=== PATIENT | male | born 1940 | race Caucasian/White ===

== ENCOUNTER 2018-09-14 17:55 | Emergency (ER) | payer OTHER ==
[2018-09-14] MEDS ORDERED: FENTANYL CITR 100 MCG/2 ML ONE ×2 (18:56→20:27)
--- NOTE | 2018-09-14 19:43 | RAD REPORT ---
EXAM DESCRIPTION: CT - Thorax Wo Con CLINICAL HISTORY: Chest pain left side rib pain COMPARISON: No relevant recent comparisons. FINDINGS: CT thorax without contrast and CT abdomen without contrast were performed Emphysematous changes are present throughout the lungs. An irregular mass measuring 5.1 x 4.8 cm is p resent in the left lung base medially. The mass abuts the pleura. No additional pulmonary nodule or m ass seen. No pathologically enlarged adenopathy. Nondisplaced fracture is present involving the left posterior ninth and tenth ribs. Noncontrast assessment of the liver and spleen are within normal limits. Large bilateral adrenal mass es are present, on the right measuring 3.9 cm and on the left measuring 3.4 cm. Pancreas is normal fo r a noncontrast study. Punctate superior left renal calculus noted. No hydronephrosis. Stent graft is present in the abdominal aorta. No lytic or blastic bone lesion. All CT scans are performed using dose optimization technique as appropriate and may include automated exposure control or mA/KV adjustment according to patient size. IMPRESSION: Nondisplaced fracture of the left posterior ninth and tenth ribs without pneumothorax. Irregular mass in the left lung base medially measuring 5.1 x 4.8 cm is likely neoplastic in origin. Bilateral adrenal masses as described are likely metastatic in etiology.
--- NOTE | 2018-09-14 21:13 | ER ---
Nurse's Notes [facility] Name: Frantz Luo Age: 78 yrs Sex: Male : 1940 Arrival Date: 09/14/2018 Time: 18:07 Bed 18 Private MD: Diagnosis: Left lung mass;Multiple fractures of ribs, left side Presentation: 09/14 18:07 Presenting complaint: EMS states: called out for trip injury and left sided rib pain em about 30 minutes ago, denies LOC or head injury. Transition of care: patient was not received from another setting of care. Onset of symptoms. Risk Assessment: Do you want to hurt yourself or someone else? Patient reports no desire to harm self or others. Initial Sepsis Screen: Does the patient meet any 2 criteria? No. Patient's initial sepsis screen is negative. Does the patient have a suspected source of infection? No. Patient's initial sepsis screen is negative. Care prior to arrival: None. 18:07 Method Of Arrival: EMS: [facility] em 18:20 Acuity: WIL 3 iw Triage Assessment: 18:16 General: Appears in no apparent distress. uncomfortable, Behavior is calm, cooperative. em Pain: Complains of pain in left lateral anterior chest. Historical: - Allergies: 18:16 flu vaccine; em - PMHx: 18:16 Myocardial infarction; Diabetes - IDDM; kidney failure; cancer, scalp; em - Immunization history:: Adult Immunizations not up to date. - Social history:: Smoking status: Patient uses tobacco products, smokes one pack cigarettes per day. - Ebola Screening: : Patient negative for fever greater than or equal to 101.5 degrees Fahrenheit, and additional compatible Ebola Virus Disease symptoms Patient denies exposure to infectious person Patient denies travel to an Ebola-affected area in the 21 days before illness onset No symptoms or risks identified at this time. Screenin:18 Abuse screen: Denies threats or abuse. Nutritional screening: No deficits noted. em Tuberculosis screening: No symptoms or risk factors identified. Fall Risk None identified. Assessment: 18:16 General: Appears in no apparent distress. uncomfortable, Behavior is calm, cooperative. em Pain: Complains of pain in chest and left lateral anterior chest. Neuro: Level of Consciousness is awake, alert, obeys commands, Oriented to person, place, time, situation. Cardiovascular: Patient's skin is warm and dry. Respiratory: Airway is patent Respiratory effort is even, unlabored, Respiratory pattern is regular, symmetrical. GI: Abdomen is round non-distended. : No signs and/or symptoms were reported regarding the genitourinary system. EENT: No signs and/or symptoms were reported regarding the EENT system. Derm: Skin is intact, is thin, Skin is pink, warm \T\ dry. Musculoskeletal: Range of motion: intact in all extremities. 18:30 Reassessment: Patient appears in no apparent distress at this time. I agree with above iw assessment by Kendall Almanza LVN. 19:00 General: Appears in no apparent distress. uncomfortable, Behavior is calm, cooperative, rr5 appropriate for age. 19:00 Pain: Complains of pain in left ateral anterior chest Pain does not radiate. Quality of rr5 pain is described as aching, Pain began suddenly, Is intermittent. Neuro: Level of Consciousness is awake, alert, obeys commands, Oriented to person, place, time, situation. Cardiovascular: Capillary refill < 3 seconds Patient's skin is warm and dry. Respiratory: Airway is patent Respiratory effort is even, unlabored, Respiratory pattern is regular, symmetrical. GI: Abdomen is round non-distended. : No signs and/or symptoms were reported regarding the genitourinary system. EENT: No signs and/or symptoms were reported regarding the EENT system. EENT: No signs and/or symptoms were reported regarding the EENT system. Derm: Skin is intact, Skin is pink, warm \T\ dry. Musculoskeletal: Capillary refill < 3 seconds, Range of motion: intact in all extremities, Reports pain in left lateral anterior chest. 20:00 Reassessment: Patient appears in no apparent distress at this time. Patient and/or rr5 family updated on plan of care and expected duration. Pain level reassessed. awaiting for CT report. 20:30 Reassessment: Patient appears in no apparent distress at this time. complaints of rib rr5 pain. ED provider informed with order and carried out. 21:39 Reassessment: Patient appears in no apparent distress at this time. Patient and/or rr5 family updated on plan of care and expected duration. Pain level reassessed. discharge instruction given and explained with no complaints made. Patient denies pain at this time. Patient states feeling better. Vital Signs: 18:16 BP 162 / 76; Pulse 78; Resp 18; Temp 97.8; Pulse Ox 98% on R/A; Weight 88.45 kg; Height em 5 ft. 11 in. (180.34 cm); Pain 7/10; 19:00 BP 160 / 51; Pulse 76; Resp 18; Temp 98.4; Pulse Ox 99% ; rr5 20:00 BP 143 / 83; Pulse 80; Resp 19; Pulse Ox 99% ; rr5 20:30 BP 141 / 80; Pulse 75; Resp 18; Pulse Ox 100% ; Pain 7/10; rr5 21:40 BP 136 / 85; Pulse 72; Resp 19; Pulse Ox 99% ; rr5 18:16 Body Mass Index 27.20 (88.45 kg, 180.34 cm) em ED Course: 18:07 Patient arrived in ED. em 18:07 Kendall Almanza LVN is Primary Nurse. em 18:16 Arm band placed on. em 18:18 Philippe Haas PA is PHCP. cp 18:18 Long Lee MD is Attending Physician. cp 18:18 Patient has correct armband on for positive identification. Bed in low position. Call em light in reach. Side rails up X2. Adult w/ patient. Pulse ox on. NIBP on. 18:20 Triage completed. iw 18:49 Inserted saline lock: 20 gauge in right antecubital area, using aseptic technique. em 19:03 Urine collected: clean catch specimen, clear. mh5 19:[address] via stretcher. nj 19:34 CT Chest Wo Con In Process Unspecified. EDMS 19:34 Abdomen Wo Contrast In Process Unspecified. EDMS 21:11 Mitchell Luevano MD is Referral Physician. cp 21:40 No provider procedures requiring assistance completed. IV discontinued, intact, rr5 bleeding controlled, No redness/swelling at site. Pressure dressing applied. Administered Medications: 18:50 Drug: fentaNYL (PF) 25 mcg Route: IVP; Site: right antecubital; iw 21:39 Follow up: Response: No adverse reaction rr5 20:30 Drug: fentaNYL (PF) 25 mcg Route: IVP; Site: right antecubital; rr5 21:39 Follow up: Response: No adverse reaction rr5 Outcome: 21:12 Discharge ordered by . cp 21:40 Discharged to home via wheelchair, with family. rr5 21:40 Condition: stable 21:40 Discharge instructions given to patient, family, Instructed on discharge instructions, follow up and referral plans. medication usage, Demonstrated understanding of instructions, follow-up care, medications, Prescriptions given X 1. 21:41 Patient left the ED. rr5 Signatures: Dispatcher [employer] EDKendall Dodson, LOOM CONTROL CHAIN BUILDER LOOM CONTROL CHAIN BUILDER Alejandra Zimmerman, RN RN Philippe Mayorga, Alli Pineda cp, [facility] Desmond Christianson, RN RN rr5
--- NOTE | 2018-09-14 21:13 | EDPHYS ---
Physician Documentation [facility] Name: Frantz Luo Age: 78 yrs Sex: Male : 1940 Arrival Date: 09/14/2018 Time: 18:07 Bed 18 Private MD: ED Physician Long Lee HPI: 09/14 18:30 This 78 yrs old Male presents to ER via EMS with complaints of RIB PAIN. cp 18:30 The patient or guardian reports chest pain that is located primarily in the left lower cp lateral chest. Onset: just prior to arrival. The pain does not radiate. Patient reports trip and fall while in garage. Landed with arm tucked into side of chest. now complaining of pain left lower lateral rib area. Historical: - Allergies: 18:16 flu vaccine; em - PMHx: 18:16 Myocardial infarction; Diabetes - IDDM; kidney failure; cancer, scalp; em - Immunization history:: Adult Immunizations not up to date. - Social history:: Smoking status: Patient uses tobacco products, smokes one pack cigarettes per day. - Ebola Screening: : Patient negative for fever greater than or equal to 101.5 degrees Fahrenheit, and additional compatible Ebola Virus Disease symptoms Patient denies exposure to infectious person Patient denies travel to an Ebola-affected area in the 21 days before illness onset No symptoms or risks identified at this time. ROS: 18:35 Constitutional: Negative for body aches, chills, fever, poor PO intake. cp 18:35 Eyes: Negative for injury, pain, redness, and discharge. cp 18:35 ENT: Negative for drainage from ear(s), ear pain, sore throat, difficulty swallowing, difficulty handling secretions. 18:35 Neck: Negative for pain with movement, pain at rest, bony tenderness. 18:35 Cardiovascular: Positive for chest pain, of the left lower lateral chest, Negative for palpitations. 18:35 Respiratory: Negative for shortness of breath, wheezing. 18:35 Abdomen/GI: Negative for abdominal pain, nausea, vomiting, and diarrhea, diarrhea, constipation, black/tarry stool, rectal bleeding. 18:35 Back: Negative for decreased range of motion, pain at rest, pain with movement. 18:35 Neuro: Negative for altered mental status, dizziness, loss of consciousness, weakness. 18:35 All other systems are negative. Exam: 18:42 Constitutional: The patient appears in no acute distress, alert, awake, cp non-diaphoretic, non-toxic, well developed, well nourished, uncomfortable. 18:42 Head/Face: Normocephalic, atraumatic. cp 18:42 Eyes: Periorbital structures: appear normal, Pupils: equal, round, and reactive to light and accomodation, Extraocular movements: intact throughout, Conjunctiva: normal, no exudate, no injection, Lids and lashes: appear normal, bilaterally. 18:42 ENT: External ear(s): are unremarkable, Ear canal(s): are normal, clear, TM's: bulging, is not appreciated, bilaterally, dullness, bilaterally, erythema, is not appreciated, bilaterally, Nose: is normal, Mouth: Lips: moist, Oral mucosa: moist, Posterior pharynx: is normal, airway is patent. 18:42 Neck: C-spine: vertebral tenderness, is not appreciated, crepitus, is not appreciated, ROM/movement: is normal, is supple, without pain, no range of motions limitations, no nuchal rigidity. 18:42 Chest/axilla: Inspection: ecchymosis, that is mild, of the left lower lateral chest wall Palpation: crepitus, is not appreciated, tenderness, that is moderate, of the left lower lateral chest wall, that totally reproduces the patient's complaints. 18:42 Cardiovascular: Rate: normal, Rhythm: regular, Pulses: Pulses are 2+ in right radial artery and left radial artery. Edema: is not appreciated, JVD: is not appreciated. 18:42 Respiratory: the patient does not display signs of respiratory distress, Respirations: normal, no use of accessory muscles, no retractions, no splinting, no tachypnea, labored breathing, is not present, Breath sounds: are clear throughout, no decreased breath sounds, no stridor, no wheezing. 18:42 Abdomen/GI: Inspection: obese Bowel sounds: active, all quadrants, Palpation: soft, in all quadrants, moderate abdominal tenderness, in the left lateral upper abdomen, rebound tenderness, is not appreciated, involuntary guarding, is not appreciated. 18:42 Back: vertebral tenderness, is not appreciated. 18:42 Musculoskeletal/extremity: Exam is negative for decreased range of motion, deformity, injury. 18:42 Skin: cellulitis, is not appreciated, no rash present. 18:42 Neuro: Orientation: to person, place \T\ time. Mentation: is normal, Cerebellar function: is grossly normal, Motor: moves all fours, strength is normal, Sensation: is normal. Vital Signs: 18:16 BP 162 / 76; Pulse 78; Resp 18; Temp 97.8; Pulse Ox 98% on R/A; Weight 88.45 kg; Height em 5 ft. 11 in. (180.34 cm); Pain 7/10; 19:00 BP 160 / 51; Pulse 76; Resp 18; Temp 98.4; Pulse Ox 99% ; rr5 20:00 BP 143 / 83; Pulse 80; Resp 19; Pulse Ox 99% ; rr5 20:30 BP 141 / 80; Pulse 75; Resp 18; Pulse Ox 100% ; Pain 7/10; rr5 21:40 BP 136 / 85; Pulse 72; Resp 19; Pulse Ox 99% ; rr5 18:16 Body Mass Index 27.20 (88.45 kg, 180.34 cm) em MDM: 18:18 Patient medically screened. cp 19:00 Differential diagnosis: abnormal EKG, acute myocardial infarction, costochondritis, cp pericarditis, pneumonia, pneumothorax, pulmonary embolus, stable angina, unstable angina, rib fracture, pneumothorax, hemothorax. 21:10 Data reviewed: vital signs, nurses notes, radiologic studies, CT scan. cp 21:10 Counseling: I had a detailed discussion with the patient and/or guardian regarding: the cp historical points, exam findings, and any diagnostic results supporting the discharge/admit diagnosis, radiology results, the need for outpatient follow up, a family practitioner, to return to the emergency department if symptoms worsen or persist or if there are any questions or concerns that arise at home. ED course: VSS. Pain improved with meds and patient appears in no respiratory distress. Will discharge to home for continued monitoring. 09/14 18:28 Order name: CT Chest Wo Con cp 09/14 18:27 Order name: IV; Complete Time: 18:53 cp 09/14 18:58 Order name: Abdomen Wo Contrast EDMS Administered Medications: 18:50 Drug: fentaNYL (PF) 25 mcg Route: IVP; Site: right antecubital; iw 21:39 Follow up: Response: No adverse reaction rr5 20:30 Drug: fentaNYL (PF) 25 mcg Route: IVP; Site: right antecubital; rr5 21:39 Follow up: Response: No adverse reaction rr5 Disposition: 09/14/18 21:12 Discharged to Home. Impression: Left lung mass, Multiple fractures of ribs, left side. - Condition is Stable. - Discharge Instructions: Rib Fracture, Pulmonary Nodule. - Prescriptions for Tylenol- Codeine #3 300-30 mg Oral Tablet - take 2 tablets by ORAL route every 6 hours As needed no driving while taking medication; 20 tablet. - Medication Reconciliation Form, Thank You Letter, Antibiotic Education, Prescription Opioid Use form. - Follow up: Mitchell Luevano MD; When: 09/17/2018; Reason: Recheck today's complaints. Addendum: 09/27/2018 07:39 Co-signature as Attending Physician, Long Lee MD I agree with the assessment and k dr plan of care. Signatures: Dispatcher [employer] [facility] Long Lee MD MD [facility] Kendall Almanza, MOVEMAN MOVEMAN em Alejandra Meyers, KRYSTIAN RN iw Philippe Haas PA PA cp Desmond Christianson, RN RN rr5 Corrections: (The following items were deleted from the chart) 09/14 18:58 18:47 Abdomen Pelvis Wo Con+CT.RAD.BRZ ordered. [facility] 21:41 21:12 09/14/2018 21:12 Discharged to Home. Impression: Left lung mass; Multiple rr5 fractures of ribs, left side. Condition is Stable. Forms are Medication Reconciliation Form, Thank You Letter, Antibiotic Education, Prescription Opioid Use. Follow up: Mitchell Luevano; When: 09/17/2018; Reason: Recheck today's complaints. cp
--- NOTE | 2018-09-17 09:05 | RAD REPORT ---
EXAM DESCRIPTION: CT - Abdomen Wo Contrast CLINICAL HISTORY: Chest pain left side rib pain COMPARISON: No relevant recent comparisons. TECHNIQUE: CT thorax without contrast and CT abdomen without contrast were performed. FINDINGS: Emphysematous changes are present throughout the lungs. An irregular mass measuring 5.1 x 4.8 cm is present in the left lung base medially. The mass abuts the pleura. No additional pulmonary nodule or mass seen. No pathologically enlarged adenopathy. Nondisplaced fracture is present involving the left posterior ninth and tenth ribs. Non-contrast assessment of the liver and spleen are within normal limits. Large bilateral adrenal mas ses are present, on the right measuring 3.9 cm and on the left measuring 3.4 cm. Pancreas is normal f or a non-contrast study. Punctate superior left renal calculus noted. No hydronephrosis. Stent graft is present in the abdominal aorta. Lymphadenopathy is present in the para-aortic location, the largest on the left measuring 27 mm in sh ort axis. No lytic or blastic bone lesion. All CT scans are performed using dose optimization technique as appropriate and may include automated exposure control or mA/KV adjustment according to patient size. IMPRESSION: Nondisplaced fracture of the left posterior ninth and tenth ribs without pneumothorax. Irregular mass in the left lung base medially measuring 5.1 x 4.8 cm is likely neoplastic in origin. Bilateral adrenal masses as described are likely metastatic in etiology. Para-aortic adenopathy is also present, largest on the left measuring 2.7 cm, likely metastatic/neopl astic in origin. The lower abdomen and pelvis is excluded from this study, limiting assessment.
== END 2018-09-14 21:41 | disposition home or self-care (01) ==
LOC: ER 17:55
DX: S22.42XA Multiple fractures of ribs, left side, initial encounter for closed fracture (principal); R91.8 Other nonspecific abnormal finding of lung field; F17.210 Nicotine dependence, cigarettes, uncomplicated; W01.0XXA Fall on same level from slipping, tripping and stumbling without subsequent striking against object, initial encounter; Y93.89 Activity, other specified; Y92.008 Other place in unspecified non-institutional (private) residence as the place of occurrence of the external cause; Z88.7 Allergy status to serum and vaccine
CPT/HCPCS: 71250; 74150; 96374; 99285; J3010

== ENCOUNTER 2018-09-16 17:50 | Inpatient (IN) | payer OTHER ==
[2018-09-16 18:31] LABS: Absolute Lymphocytes (CBC) 1.4 K/uL (0.7-4.9); Absolute Monocytes 1.7 K/uL (0.1-1.3); Absolute Neutrophil 14.8 K/uL (1.8-8.0); Basophils % 0.7 % (0-1.3); Eosinophils % 0.4 % (0-4.4); Hematocrit 35.5 % (39.6-49.0); Lymphocytes % 7.8 % (15.3-44.8); MPV 7.6 fL (7.6-11.3); Monocytes % 9.2 % (3.3-12.3); RBC Red Blood Cell Count 4.41 M/uL (4.33-5.43)
[2018-09-16] MEDS ORDERED: NA CHLORIDE 0.9% 1,000 ML ONE (18:35)
[2018-09-16 18:52] LABS: Albumin 2.8 g/dL (3.4-5.0); Bilirubin Direct 0.2 mg/dL (0-0.2); Bilirubin Total 0.5 mg/dL (0.2-1.0); Potassium 4.4 mmol/L (3.5-5.1); Protein, Total 7.3 g/dL (6.4-8.2)
--- NOTE | 2018-09-16 19:24 | RAD REPORT ---
EXAM DESCRIPTION: RAD - Chest Single View - 09/16/2018 7:12 pm CLINICAL HISTORY: CHEST PAIN Chest pain. COMPARISON: Abdomen 1 View (KUB) dated 09/16/2018; CHEST PA AND LAT 2 VIEW dated 12/23/2010; CHEST PA A ND LAT 2 VIEW dated 02/12/2010; CHEST SINGLE VIEW dated 11/13/2009; Thorax Wo Con dated 09/14/2018 FINDINGS: Portable technique limits examination quality. Emphysematous changes are present throughout the lungs. Dense left retrocardiac lung opacity is again noted, correlating with recent CT chest findings. The heart is normal in size. No displaced fracture s.
--- NOTE | 2018-09-16 19:24 | RAD REPORT ---
EXAM DESCRIPTION: RAD - Abdomen 1 View (KUB) - 09/16/2018 7:12 pm CLINICAL HISTORY: ABDOMINAL DISTENTION Pain COMPARISON: Abdomen Wo Contrast dated 09/14/2018; Thorax Wo Con dated 09/14/2018 FINDINGS: The bowel gas pattern is non-obstructive. No evidence of free air or pneumatosis. No suspi cious calcifications. Aortic stent graft is present. IMPRESSION: No acute abnormality is detected.
--- NOTE | 2018-09-16 19:33 | ER ---
Nurse's Notes [facility] Name: Frantz Luo Age: 78 yrs Sex: Male : 1940 Arrival Date: 09/16/2018 Time: 17:56 Bed 6 Private MD: Diagnosis: Fall due to bumping against object;Multiple fractures of ribs, left side-9th and 10th, neoplastic process, left chest, metastatic;Unspecified kidney failure;Hypoxemia;Type 1 diabetes mellitus;Chronic obstructive pulmonary disease, unspecified;Elevated white blood cell count Presentation: 09/16 17:56 Presenting complaint: EMS states: NAUSEA, VOMITING AND DIARRHEA SINCE YESTERDAY. bp Transition of care: patient was not received from another setting of care. Onset of symptoms was September 15, 2018. Risk Assessment: Do you want to hurt yourself or someone else? Patient reports no desire to harm self or others. Initial Sepsis Screen: Does the patient meet any 2 criteria? HR > 90 bpm. No. Patient's initial sepsis screen is negative. Does the patient have a suspected source of infection? No. Patient's initial sepsis screen is negative. Care prior to arrival: Medication(s) given: zofran 4 mg, Glucose check: 111. 17:56 Method Of Arrival: EMS: [facility] bp 17:56 Acuity: WIL 3 bp Triage Assessment: 18:00 General: Appears in no apparent distress. comfortable, Behavior is calm, cooperative, bp appropriate for age. Pain: Complains of pain in abdomen. EENT: No deficits noted. Neuro: Level of Consciousness is awake, alert, obeys commands, Oriented to person, place, time, situation, Appropriate for age. Cardiovascular: Rhythm is sinus tachycardia. Respiratory: Airway is patent Respiratory effort is even, unlabored, shallow, Respiratory pattern is regular, symmetrical. GI: Reports diarrhea, nausea, vomiting. : No signs and/or symptoms were reported regarding the genitourinary system. Derm: No deficits noted. Musculoskeletal: Circulation, motion, and sensation intact. Range of motion: intact in all extremities. Historical: - Allergies: 18:00 FLU VACCINE; bp - PMHx: 18:00 cancer, scalp; Myocardial infarction; Diabetes - IDDM; Hyperlipidemia; Hypertension; bp CKD; - Immunization history:: Adult Immunizations up to date. - Social history:: Smoking status: Patient/guardian denies using tobacco. - Ebola Screening: : Patient negative for fever greater than or equal to 101.5 degrees Fahrenheit, and additional compatible Ebola Virus Disease symptoms Patient denies exposure to infectious person Patient denies travel to an Ebola-affected area in the 21 days before illness onset No symptoms or risks identified at this time. Screenin:00 Abuse screen: Denies threats or abuse. Denies injuries from another. Nutritional bp screening: No deficits noted. Tuberculosis screening: No symptoms or risk factors identified. Fall Risk None identified. Assessment: 18:00 General: SEE TRIAGE NOTE. GI: Abdomen is BLOATED Abd is soft X 4 quads. bp 18:39 Reassessment: RT PAGED FOR INCENTIVE SPIROMETRY. VS STABLE ON MONITOR. bp 19:47 Reassessment: Patient appears in no apparent distress at this time. No changes from jd3 previously documented assessment. Patient and/or family updated on plan of care and expected duration. Pain level reassessed. Patient is alert, oriented x 3, equal unlabored respirations, skin warm/dry/pink. 21:26 Reassessment: Patient appears in no apparent distress at this time. Patient and/or jd3 family updated on plan of care and expected duration. Pain level reassessed. Patient is alert, oriented x 3, equal unlabored respirations, skin warm/dry/pink. awaiting admission orders. 21:59 Reassessment: Patient appears in no apparent distress at this time. No changes from jd3 previously documented assessment. Patient and/or family updated on plan of care and expected duration. Pain level reassessed. Patient is alert, oriented x 3, equal unlabored respirations, skin warm/dry/pink. 22:23 Reassessment: Report given to Aisha RN on second floor. ea 23:00 Reassessment: Patient and/or family updated on plan of care and expected duration. Pain ea level reassessed. Patient is alert, oriented x 3, equal unlabored respirations, skin warm/dry/pink. Pt admitted to second floor, pt taken via wheelchair tolerating well. Vital Signs: 18:00 BP 137 / 72; Pulse 120; Resp 18; Temp 99.2; Pulse Ox 92% on R/A; Weight 88.45 kg; bp Height 5 ft. 10 in. (177.80 cm); 18:16 BP 91 / 48; Pulse 111; Resp 20; Pulse Ox 93% on 2 lpm NC; bp 19:47 BP 106 / 53; Pulse 109; Resp 18 S; Pulse Ox 94% on R/A; jd3 21:29 BP 97 / 49; Pulse 102; Resp 18 S; Pulse Ox 94% on 2 lpm NC; jd3 21:59 BP 114 / 48; Pulse 114; Resp 18 S; Pulse Ox 94% on 2 lpm NC; jd3 22:50 BP 119 / 78; Pulse 90; Resp 18; Pulse Ox 100% ; ea 18:00 Body Mass Index 27.98 (88.45 kg, 177.80 cm) bp ED Course: 17:56 Patient arrived in ED. bp 17:58 Philippe Conti MD is Attending Physician. александр 17:58 Triage completed. bp 18:00 Arm band placed on. bp 18:00 Patient has correct armband on for positive identification. Bed in low position. Call bp light in reach. Side rails up X2. 18:13 Casey Heredia, RN is Primary Nurse. bp 18:16 Inserted saline lock: 20 gauge in right wrist, using aseptic technique. Blood collected.bp 19:11 X-ray completed. Patient tolerated procedure well. Patient moved to CT via stretcher. sg4 19:12 Abdomen 1 View (KUB) XRAY In Process Unspecified. EDMS 19:13 XRAY Chest (1 view) In Process Unspecified. EDMS 19:23 CT CHEST,ABD,PELVIS W/O In Process Unspecified. EDMS 19:29 Tl Hammond MD is Hospitalizing Provider. александр 20:45 Barr cath inserted, using sterile technique, 16 Fr., by mo, balloon inflated, to jd3 gravity drainage, urine specimen collected. Patient tolerated well. 21:33 Primary Nurse role handed off by Casey Heredia, KRYSTIAN ed1 21:58 Adrian Hernandez RN is Primary Nurse. jd3 22:24 No provider procedures requiring assistance completed. Patient admitted, IV remains in ea place. Administered Medications: 18:20 Drug: NS 0.9% 1000 ml Route: IV; Rate: 1 bolus; Site: right wrist; bp 23:02 Follow up: Response: No adverse reaction; IV Status: Completed infusion jd3 20:20 Drug: Zosyn 3.375 grams Route: IVPB; Infused Over: 60 mins; Site: right forearm; jd3 22:59 Follow up: Response: No adverse reaction; IV Status: Completed infusion jd3 20:21 Drug: Viscous Lidocaine Liquid (4 %) 5 ml Route: Mucous Membrane; jd3 23:00 Follow up: Response: No adverse reaction jd3 20:28 Drug: Zofran 4 mg Route: IVP; Site: right forearm; jd3 22:59 Follow up: Response: No adverse reaction jd3 20:29 Drug: fentaNYL (PF) 50 mcg Route: IVP; Site: right forearm; jd3 22:58 Follow up: Response: No adverse reaction jd3 21:07 Drug: Xopenex 3.75 mg Route: Inhalation; jd3 23:01 Follow up: Response: No adverse reaction jd3 21:07 Drug: AtroVENT Aerosol 0.5 mg Route: Inhalation; jd3 23:00 Follow up: Response: No adverse reaction jd3 Outcome: 19:33 Decision to Hospitalize by Provider. александр 22:25 Instructed on the need for admit. karen 22:59 Admitted to Med/surg accompanied by tech, room 219, with oxygen, with chart, Report ea called to Aisha BOLAND 22:59 Condition: stable 23:03 Patient left the ED. ea Signatures: Dispatcher [employer] EDMS Philippe Conti MD MD cha Riggs, Erika, ROCKET SCIENTIST ROCKET SCIENTIST ed1 Mindy Ortiz, RN Adrian Galeana ea, RN RN Casey Vicente RN RN bp Garcia, Susana sg4
--- NOTE | 2018-09-16 19:34 | EDPHYS ---
Physician Documentation [facility] Name: Frantz Luo Age: 78 yrs Sex: Male : 1940 Arrival Date: 09/16/2018 Time: 17:56 Bed 6 Private MD: ED Physician Philippe Conti HPI: 09/16 18:37 This 78 yrs old Male presents to ER via EMS with complaints of александр Nausea/Vomiting/Diarrhea. Historical: - Allergies: 18:00 FLU VACCINE; bp - PMHx: 18:00 cancer, scalp; Myocardial infarction; Diabetes - IDDM; Hyperlipidemia; Hypertension; bp CKD; - Immunization history:: Adult Immunizations up to date. - Social history:: Smoking status: Patient/guardian denies using tobacco. - Ebola Screening: : Patient negative for fever greater than or equal to 101.5 degrees Fahrenheit, and additional compatible Ebola Virus Disease symptoms Patient denies exposure to infectious person Patient denies travel to an Ebola-affected area in the 21 days before illness onset No symptoms or risks identified at this time. ROS: 18:39 Constitutional: Negative for fever, chills, and weight loss, Eyes: Negative for injury, александр pain, redness, and discharge, ENT: Negative for injury, pain, and discharge, Neck: Negative for injury, pain, and swelling, Cardiovascular: Negative for chest pain, palpitations, and edema, Back: Negative for injury and pain, : Negative for injury, bleeding, discharge, and swelling, MS/Extremity: Negative for injury and deformity, Skin: Negative for injury, rash, and discoloration, Neuro: Negative for headache, weakness, numbness, tingling, and seizure, Psych: Negative for depression, anxiety, suicide ideation, homicidal ideation, and hallucinations, Allergy/Immunology: Negative for hives, rash, and allergies, Endocrine: Negative for neck swelling, polydipsia, polyuria, polyphagia, and marked weight changes, Hematologic/Lymphatic: Negative for swollen nodes, abnormal bleeding, and unusual bruising. 18:39 Respiratory: Positive for cough, shortness of breath, on exertion. 18:39 Abdomen/GI: Positive for abdominal pain, nausea and vomiting, of the anterior aspect of left lateral abdomen, posterior aspect of left lateral abdomen and left upper quadrant. Exam: 18:39 Constitutional: This is a well developed, well nourished patient who is awake, alert, александр and in no acute distress. Head/Face: Normocephalic, atraumatic. Eyes: Pupils equal round and reactive to light, extra-ocular motions intact. Lids and lashes normal. Conjunctiva and sclera are non-icteric and not injected. Cornea within normal limits. Periorbital areas with no swelling, redness, or edema. ENT: Nares patent. No nasal discharge, no septal abnormalities noted. Tympanic membranes are normal and external auditory canals are clear. Oropharynx with no redness, swelling, or masses, exudates, or evidence of obstruction, uvula midline. Mucous membranes moist. Neck: Trachea midline, no thyromegaly or masses palpated, and no cervical lymphadenopathy. Supple, full range of motion without nuchal rigidity, or vertebral point tenderness. No Meningismus. Back: No spinal tenderness. No costovertebral tenderness. Full range of motion. Male : Normal genitalia with no discharge or lesions. Skin: Warm, dry with normal turgor. Normal color with no rashes, no lesions, and no evidence of cellulitis. MS/ Extremity: Pulses equal, no cyanosis. Neurovascular intact. Full, normal range of motion. Neuro: Awake and alert, GCS 15, oriented to person, place, time, and situation. Cranial nerves II-XII grossly intact. Motor strength 5/5 in all extremities. Sensory grossly intact. Cerebellar exam normal. Normal gait. Psych: Awake, alert, with orientation to person, place and time. Behavior, mood, and affect are within normal limits. 18:39 Chest/axilla: Inspection: ecchymosis, that is mild, that is moderate, of the left lateral anterior chest and left lateral posterior chest Palpation: tenderness, that is mild, that is moderate, of the left lateral anterior chest and left lateral posterior chest. 18:39 Cardiovascular: Rate: tachycardic, Rhythm: regular, Pulses: Pulses are 4+ in bilateral radial, brachial, femoral, popliteal, posterior tibial and and dorsalis pedis arteries.. Heart sounds: normal, Edema: is not appreciated, JVD: is not appreciated. 18:39 Abdomen/GI: Inspection: distension, Bowel sounds: normal, Palpation: moderate abdominal александр tenderness, Liver: no appreciated palpable abnormalities, Hernia: not appreciated. Vital Signs: 18:00 BP 137 / 72; Pulse 120; Resp 18; Temp 99.2; Pulse Ox 92% on R/A; Weight 88.45 kg; bp Height 5 ft. 10 in. (177.80 cm); 18:16 BP 91 / 48; Pulse 111; Resp 20; Pulse Ox 93% on 2 lpm NC; bp 19:47 BP 106 / 53; Pulse 109; Resp 18 S; Pulse Ox 94% on R/A; jd3 21:29 BP 97 / 49; Pulse 102; Resp 18 S; Pulse Ox 94% on 2 lpm NC; jd3 21:59 BP 114 / 48; Pulse 114; Resp 18 S; Pulse Ox 94% on 2 lpm NC; jd3 22:50 BP 119 / 78; Pulse 90; Resp 18; Pulse Ox 100% ; ea 18:00 Body Mass Index 27.98 (88.45 kg, 177.80 cm) bp MDM: 17:58 Patient medically screened. [facility] 18:42 Data reviewed: vital signs, nurses notes, lab test result(s), EKG, radiologic studies, [facility] CT scan, plain films. 09/16 18:14 Order name: Basic Metabolic Panel; Complete Time: 19:12 bp 09/16 18:14 Order name: CBC with Diff; Complete Time: 19:12 bp 09/16 18:14 Order name: Creatinine for Radiology; Complete Time: 19:12 bp 09/16 18:14 Order name: Hepatic Function; Complete Time: 19:12 bp 09/16 18:14 Order name: Lipase; Complete Time: 19:12 bp 09/16 18:14 Order name: BNP; Complete Time: 19:12 bp 09/16 18:36 Order name: Magnesium [facility] 09/16 18:36 Order name: PT-INR [facility] 09/16 18:36 Order name: Troponin (emerg Dept Use Only) [facility] 09/16 18:36 Order name: Type And Screen [facility] 09/16 18:36 Order name: Blood Culture Adult (2) [facility] 09/16 18:36 Order name: Urine Culture [facility] 09/16 21:22 Order name: Urine Dipstick--Ancillary (enter results) em1 09/16 21:42 Order name: CBC with Automated Diff EDMS 09/16 21:42 Order name: CBC with Automated Diff EDMS 09/16 21:42 Order name: Comprehensive Metabolic Panel EDSC 09/16 21:42 Order name: Comprehensive Metabolic Panel EDMS 09/16 21:42 Order name: Creatine Phosphokinase EDMS 09/16 21:42 Order name: Creatine Phosphokinase EDMS 09/16 21:42 Order name: Magnesium EDMS 09/16 21:42 Order name: Magnesium EDMS 09/16 21:42 Order name: Phosphorus EDMS 09/16 21:42 Order name: Phosphorus EDMS 09/16 21:42 Order name: Protime (+INR) EDMS 09/16 21:42 Order name: Protime (+INR) EDMS 09/16 21:42 Order name: PTT, Activated Partial Thromb EDMS 09/16 21:42 Order name: PTT, Activated Partial Thromb EDMS 09/16 21:42 Order name: Troponin I EDMS 09/16 21:42 Order name: Troponin I EDMS 09/16 21:42 Order name: Troponin I EDMS 09/16 18:14 Order name: IV Saline Lock; Complete Time: 18:14 bp 09/16 18:14 Order name: Labs collected and sent; Complete Time: 18:14 bp 09/16 18:14 Order name: Abdomen 1 View (KUB) XRAY; Complete Time: 19:44 bp 09/16 18:36 Order name: XRAY Chest (1 view); Complete Time: 19:44 александр 09/16 18:36 Order name: EKG; Complete Time: 18:37 [facility] 09/16 18:36 Order name: Cardiac monitoring; Complete Time: 18:38 [facility] 09/16 18:36 Order name: EKG - Nurse/Tech; Complete Time: 18:38 [facility] 09/16 18:36 Order name: O2 Per Protocol; Complete Time: 18:37 [facility] 09/16 18:36 Order name: O2 Sat Monitoring; Complete Time: 18:37 [facility] 09/16 18:36 Order name: INCENTIVE SPIROMETRY [facility] 09/16 18:36 Order name: Urine Dipstick-Ancillary (obtain specimen); Complete Time: 21:18 [facility] 09/16 19:18 Order name: CT CHEST,ABD,PELVIS W/O; Complete Time: 19:44 [facility] 09/16 19:20 Order name: Barr: viscus lido; Complete Time: 20:21 александр 09/16 21:41 Order name: CONS Physician Consult EDSC 09/16 21:42 Order name: NPO EDSC 09/16 21:42 Order name: Troponin I EDSC 09/16 21:43 Order name: Urinalysis EDMS Administered Medications: 18:20 Drug: NS 0.9% 1000 ml Route: IV; Rate: 1 bolus; Site: right wrist; bp 23:02 Follow up: Response: No adverse reaction; IV Status: Completed infusion jd3 20:20 Drug: Zosyn 3.375 grams Route: IVPB; Infused Over: 60 mins; Site: right forearm; jd3 22:59 Follow up: Response: No adverse reaction; IV Status: Completed infusion jd3 20:21 Drug: Viscous Lidocaine Liquid (4 %) 5 ml Route: Mucous Membrane; jd3 23:00 Follow up: Response: No adverse reaction jd3 20:28 Drug: Zofran 4 mg Route: IVP; Site: right forearm; jd3 22:59 Follow up: Response: No adverse reaction jd3 20:29 Drug: fentaNYL (PF) 50 mcg Route: IVP; Site: right forearm; jd3 22:58 Follow up: Response: No adverse reaction jd3 21:07 Drug: Xopenex 3.75 mg Route: Inhalation; jd3 23:01 Follow up: Response: No adverse reaction jd3 21:07 Drug: AtroVENT Aerosol 0.5 mg Route: Inhalation; jd3 23:00 Follow up: Response: No adverse reaction jd3 Disposition: 09/16/18 19:33 Hospitalization ordered by Tl Hammond for Inpatient Admission. Preliminary diagnosis are Fall due to bumping against object, Multiple fractures of ribs, left side - 9th and 10th, neoplastic process, left chest, metastatic, Unspecified kidney failure, Hypoxemia, Type 1 diabetes mellitus, Chronic obstructive pulmonary disease, unspecified, Elevated white blood cell count. - Bed requested for Telemetry/MedSurg (Inpatient). - Status is Inpatient Admission. ea - Condition is Fair. - Problem is new. - Symptoms have improved. UTI on Admission? No Signatures: Dispatcher [employer] [facility] Salima Harper, RN Philippe Degroot MD MD cha Antunez, Elena, RN RN ea Davies, Jonathon, RN RN jCasey Bass RN RN bp Corrections: (The following items were deleted from the chart) 19:18 18:37 Chest Abdomen Pelvis W Con+CT.RAD.BRZ ordered. EDMS EDMS 19:37 19:33 Hospitalization Ordered by Tl Hammond MD for Inpatient Admission. Preliminary александр diagnosis is Fall due to bumping against object; Multiple fractures of ribs, left side - 9th and 10th; Unspecified kidney failure; Hypoxemia; Type 1 diabetes mellitus. Bed requested for Telemetry/MedSurg (Inpatient). Status is Inpatient Admission. Condition is Fair. Problem is new. Symptoms have improved. UTI on Admission? No. александр 19:41 19:37 09/16/2018 19:33 Hospitalization Ordered by Tl Hammond MD for Inpatient александр Admission. Preliminary diagnosis is Fall due to bumping against object; Multiple fractures of ribs, left side - 9th and 10th, neoplastic process, left chest, metastatic; Unspecified kidney failure; Hypoxemia; Type 1 diabetes mellitus. Bed requested for Telemetry/MedSurg (Inpatient). Status is Inpatient Admission. Condition is Fair. Problem is new. Symptoms have improved. UTI on Admission? No. александр 19:43 19:41 09/16/2018 19:33 Hospitalization Ordered by Tl Hammond MD for Inpatient александр Admission. Preliminary diagnosis is Fall due to bumping against object; Multiple fractures of ribs, left side - 9th and 10th, neoplastic process, left chest, metastatic; Unspecified kidney failure; Hypoxemia; Type 1 diabetes mellitus; Chronic obstructive pulmonary disease, unspecified. Bed requested for Telemetry/MedSurg (Inpatient). Status is Inpatient Admission. Condition is Fair. Problem is new. Symptoms have improved. UTI on Admission? No. александр 19:56 19:43 09/16/2018 19:33 Hospitalization Ordered by Tl Hammond MD for Inpatient dw Admission. Preliminary diagnosis is Fall due to bumping against object; Multiple fractures of ribs, left side - 9th and 10th, neoplastic process, left chest, metastatic; Unspecified kidney failure; Hypoxemia; Type 1 diabetes mellitus; Chronic obstructive pulmonary disease, unspecified; Elevated white blood cell count. Bed requested for Telemetry/MedSurg (Inpatient). Status is Inpatient Admission. Condition is Fair. Problem is new. Symptoms have improved. UTI on Admission? No. александр 23:03 19:56 09/16/2018 19:33 Hospitalization Ordered by Tl Hammond MD for Inpatient ea Admission. Preliminary diagnosis is Fall due to bumping against object; Multiple fractures of ribs, left side - 9th and 10th, neoplastic process, left chest, metastatic; Unspecified kidney failure; Hypoxemia; Type 1 diabetes mellitus; Chronic obstructive pulmonary disease, unspecified; Elevated white blood cell count. Bed requested for Telemetry/MedSurg (Inpatient). Status is Inpatient Admission. Condition is Fair. Problem is new. Symptoms have improved. UTI on Admission? No. dw
--- NOTE | 2018-09-16 19:38 | RAD REPORT ---
EXAM DESCRIPTION: CT - CT CHEST,ABD,PELVIS W/O - 09/16/2018 7:23 pm CLINICAL HISTORY: Chest and abdomen pain. Cough;Abdominal distention;Blunt chest trauma COMPARISON: Thorax Wo Con dated 09/14/2018; Abdomen Wo Contrast dated 09/14/2018 TECHNIQUE: Limited noncontrast study is submitted. All CT scans are performed using dose optimization technique as appropriate and may include automated exposure control or mA/KV adjustment according to patient size. FINDINGS: Mild COPD is present.Medial left base pulmonary mass lesion is again noted, unchanged sinc e recent comparative study, measuring 5.1 x 4.8 cm. No additional lung lesion is seen.No pleural or p ericardial effusion.No intrathoracic adenopathy.Posterolateral left ninth and tenth rib fractures are again noted, mildly displaced and appearing unchanged. The liver demonstrates no focal mass. The gallbladder appears surgically absent. No intrahepatic bili adele dilatation. The spleen, pancreas are unremarkable. Large bilateral adrenal masses are again noted , unchanged and most compatible with metastasis. No bowel obstruction, free air, free fluid or abscess. Several enlarged lymph nodes are present in th e para- aortic region, largest on the left measuring 27 mm and on the right measuring 20 mm. Addition ally there is an enlarged and slightly inflamed appearing lymph node in the small bowel mesentery kim trally measuring 21 mm in short axis. Aortic stent graft is in place. Diverticulosis is present with out diverticulitis. IMPRESSION: 5 cm medial left base pulmonary mass lesion again noted, likely neoplastic in origin. Large bilateral adrenal masses, likely metastatic. Enlarged para-aortic and small bowel mesenteric adenopathy also presumably metastatic. Mildly displaced left posterolateral ninth and tenth rib fractures.
[2018-09-16] MEDS ORDERED: LEVALBUTEROL 1.25 MG/3 ML NEB ONE ×2 (20:02→20:03)
[2018-09-16] MEDS ORDERED: LIDOCAINE VISCOUS 2% SOLN 15 ML UDC ONE (20:02)
[2018-09-16] MEDS ORDERED: IPRATROPIUM BROM 0.5MG/2.5ML ONE (20:02)
[2018-09-16] MEDS ORDERED: PIPER/TAZO/NS 3.375gm 3.375 GM/100 ML BAG ONE (20:03)
[2018-09-16 20:09] LABS: Protime INR 1.24
[2018-09-16 20:26] LABS: Troponin (Emerg Dept Use Only) < 0.02 ng/mL (0.0-0.045)
[2018-09-16] MEDS ORDERED: ONDANSETRON 4 MG/2 ML VIAL ONE (20:33)
[2018-09-16] MEDS ORDERED: FENTANYL CITR 100 MCG/2 ML ONE (20:33)
[2018-09-16] MEDS ORDERED: MAGNESIUM HYDROXIDE 8% 30 ML PO PRN (21:31)
[2018-09-16 21:38] LABS: Urine Blood NEGATIVE (NEG); Urine Glucose NEGATIVE (NEG); Urine Protein 3+ (NEG); Urine Specific Gravity >1.030 (1.005-1.030)
[2018-09-16] MEDS: NA CHLORIDE 0.9% 1,000 ML IV SCH (23:40)
[2018-09-17 01:23] LABS: Urine Appearance CLOUDY; Urine Blood NEGATIVE (NEG); Urine Color DK YELLOW; Urine Glucose NEGATIVE (NEG); Urine Protein 2+ (NEG)
[2018-09-17 01:55] LABS: Urine Bilirubin NEGATIVE (NEG); Urine Microscopic Reflex ORDER UMIC
[2018-09-17 01:57] LABS: Urine Amorphous Sediment 1+ /HPF (NONE SEEN); Urine Bacteria 20-50 /HPF (NONE SEEN); Urine Culture Reflex Order REFLEXED; Urine RBC <5 /HPF (NONE SEEN)
[2018-09-17] MEDS: ALBUTEROL 2.5 MG/3 ML NEB SOL NEB SCH ×4 (02:25→19:50)
[2018-09-17 04:21] LABS: Absolute Monocytes 1.7 K/uL (0.1-1.3); Absolute Neutrophil 13.4 K/uL (1.8-8.0); Basophils % 0.5 % (0-1.3); Eosinophils % 0.1 % (0-4.4); Hematocrit 31.9 % (39.6-49.0); Lymphocytes % 6.3 % (15.3-44.8); MPV 7.7 fL (7.6-11.3); Monocytes % 10.5 % (3.3-12.3); RBC Red Blood Cell Count 3.96 M/uL (4.33-5.43)
[2018-09-17 04:34] LABS: Protime INR 1.18
[2018-09-17 04:48] LABS: Albumin 2.4 g/dL (3.4-5.0); Bilirubin Total 0.4 mg/dL (0.2-1.0); Magnesium 2.1 mg/dL (1.8-2.4); Phosphorus 5.7 mg/dL (2.5-4.9); Protein, Total 6.5 g/dL (6.4-8.2)
[2018-09-17] MEDS: MORPHINE 4 MG/ML SYR IV PRN (04:57)
--- NOTE | 2018-09-17 06:26 | EKG ---
Test Date: 2018-09-16 Test Time: 18:34:23 Health And Safety Director: TONI MEASUREMENT RESULTS: Intervals: Rate: 106 AR: 238 QRSD: 96 QT: 322 QTc: 427 [place]: P: 54 AR: 238 QRS: 89 T: 49 INTERPRETIVE STATEMENTS: Sinus tachycardia with 1st degree AV block Otherwise normal ECG Compared to ECG 12/23/2010 10:48:21 First degree AV block now present Sinus rhythm no longer present Electronically Signed On 09-17-18 06:18:38 DIE BARBER by Topher Segovia
[2018-09-17] MEDS ORDERED: PNEUMOCOCCAL VACCINE 0.5 ML IMVAC ONE (08:00)
[2018-09-17] MEDS ORDERED: ACETAMINOPHEN 500 MG TAB PO PRN (08:03)
[2018-09-17] MEDS: ONDANSETRON 4 MG/2 ML VIAL IV PRN (08:52)
[2018-09-17] MEDS: INSULIN GLARGINE 100 UNITS/ML SQ SCH ×2 (09:00→20:40)
[2018-09-17] MEDS: ENOXAPARIN 30 MG/0.3 ML SQ SCH (09:00)
[2018-09-17] MEDS: ASCORBIC ACID 500 MG TABLET PO SCH (09:00)
[2018-09-17] MEDS: FINASTERIDE 5 MG TAB PO SCH (09:00)
[2018-09-17] MEDS ORDERED: ENOXAPARIN 40 MG/0.4 ML SQ SCH (09:00)
[2018-09-17] MEDS: ASPIRIN EC 81 MG TAB PO SCH (09:00)
--- NOTE | 2018-09-17 09:25 | P.HP ---
Certification for Inpatient Patient admitted to: Inpatient With expected LOS: >2 Midnights Patient will require the following post-hospital care: None Practitioner: I am a practitioner with admitting privileges, knowledge of patient current condition, hospital course, and medical plan of care. Services: Services provided to patient in accordance with Admission requirements found in Title 42 Section 412.3 of the Code of Federal Regulations Patient History Date of Service: 09/16/18 Reason for admission: Status post fall with left-sided rib fractures History of Present Illness: Patient is a 78-year-old gentleman who came into the hospital after falling. He put his arm out to break his fall, and he states that his elbow hit the left side is rib. He apparently is suffered rib fractures. Patient also had a CT scan performed which revealed a lung mass with lymph nodes around the aorta as well as adrenal metastasis. Patient is admitted to the hospital for further workup. Will get a pulmonary consultation. Will also get a dedicated rib x- ray. Patient also had labs which revealed acute on chronic kidney disease. Will start hydrating the patient as well. Will monitor his labs closely. Patient will be admitted to the hospital for further workup. Allergies flu vaccine Allergy (Uncoded 08/02/16 08:36) hives and swelling from injection site radiating up arm Home Medications: Acetaminophen [Tylenol Extra Strength] 500 mg PO PRN PRN 08/02/16 Amlodipine Besylate [Norvasc] 10 mg PO DAILY WITH BREAKFAST 08/02/16 Ascorbic Acid [Vitamin C*] 1,000 mg PO DAILY 08/02/16 Aspirin [Aspirin EC 81 MG] 81 mg PO DAILY 08/02/16 Cholecalciferol (Vitamin D3) [Vitamin D3] 5,000 unit PO DAILY 08/02/16 Ezetimibe [Zetia*] 10 mg PO DAILY 08/02/16 Finasteride [Proscar*] 5 mg PO DAILY 08/02/16 Garlic 2,000 mg PO DAILY 08/02/16 Insulin Glargine,Hum.rec.anlog [Lantus Solostar] 40 unit SQ BID 08/02/16 Krill/[place]-3/Dha/Epa/Lipids [[place]-3 Krill Oil 500 mg Sfgl] 1 each PO DAILY Losartan Potassium [Cozaar] 100 mg PO LUNCH 08/02/16 Metoprolol Succinate [Toprol Xl] 200 mg PO DAILY WITH BREAKFAST 08/02/16 Multivit-Min/FA/Lycopen/Lutein [Centrum Silver Tablet] 1 each PO DAILY 08/02/16 Nateglinide [Starlix] 120 mg PO BID 08/02/16 Simvastatin [Zocor*] 40 mg PO BEDTIME 08/02/16 - Past Medical/Surgical History Has patient received pneumonia vaccine in the past: No Diabetic: Yes -: cancer scalp -: [place] -: IDDM -: hyperlipidemia -: HTN -: Chronic kidney disease Past Surgical History: Patient denies surgical history - Family History Father Family History: Reviewed- Non-Contributory - Social History Smoking Status: Never smoker Alcohol use: No CD- Drugs: No Caffeine use: Yes Place of Residence: Home Review of Systems 10-point ROS is otherwise unremarkable Physical Examination - Vital Signs Temperature: 98.3 F Blood Pressure: 158/67 Pulse: 107 Respirations: 16 Pulse Ox (%): 98 - Physical Exam General: Alert, In no apparent distress, Oriented x3 HEENT: Atraumatic, PERRLA, Mucous membr. moist/pink, EOMI, Sclerae nonicteric Neck: Supple, 2+ carotid pulse no bruit, No LAD, Without JVD or thyroid abnormality Respiratory: Clear to auscultation bilaterally, Normal air movement Cardiovascular: Regular rate/rhythm, Normal S1 S2, No murmurs Gastrointestinal: Normal bowel sounds, Soft and benign, Non-distended, No tenderness Musculoskeletal: No clubbing, No swelling, No tenderness Integumentary: No rashes Neurological: Normal gait, Normal speech, Normal strength at 5/5 x4 extr, Normal tone, Sensation intact, Cranial nerves 3-12 intact, Normal affect Lymphatics: No axilla or inguinal lymphadenopathy - Studies Laboratory Data (last 24 hrs) 09/16/18 19:45: PT 14.7 H, INR 1.24 09/16/18 19:45: Magnesium 2.0 09/16/18 18:15: Creatinine 2.73 H 09/16/18 18:15: WBC 18.1 H, Hgb 11.6 L, Hct 35.5 L, Plt Count 400 09/16/18 18:15: Sodium 135 L, Potassium 4.4, BUN 41 H, Creatinine 2.65 H, Glucose 115 H, Total Bilirubin 0.5, AST 16, ALT 19, Alkaline Phosphatase 94, Lipase 175 Assessment & Plan - Problems (Diagnosis) (1) Fall Current Visit: Yes Status: Acute (2) Rib fracture Current Visit: Yes Status: Acute (3) Lung mass Current Visit: Yes Status: Acute (4) Acute kidney injury Current Visit: Yes Status: Acute (5) Hypertension Current Visit: Yes Status: Acute (6) Type 2 diabetes mellitus Current Visit: Yes Status: Acute - Plan Plan: 1. IV hydration 2. Pain control 3. Rib films 4. Pulmonary consultation 5. Strict blood pressure and blood sugar control 6. Nephrology consultation 7. Monitor renal function 8. Renal ultrasound 9. GI and DVT prophylaxis Discharge Plan: Home Plan to discharge in: Greater than 2 days - Advance Directives Does patient have a Living Will: No Does patient have a Durable POA for Healthcare: No - Code Status/Comfort Care Code Status Assessed: Yes Code Status: Full Code Critical Care: No Time Spent Managing PTS Care (In Minutes): 50
[2018-09-17] MEDS: PROMETHAZINE 25 MG/ML VIAL IV PRN ×2 (10:04→16:41)
[2018-09-17] MEDS: LOSARTAN POTASSIUM 50 MG TABLET PO SCH (12:00)
[2018-09-17] MEDS: NATEGLINIDE 60 MG TAB PO SCH (16:30)
[2018-09-17] MEDS: LOPERAMIDE HCL 2 MG CAPSULE PO PRN (16:41)
[2018-09-17] MEDS: NA CHLORIDE 0.9% 1,000 ML IV SCH (16:47)
--- NOTE | 2018-09-17 16:47 | P.PN ---
Subjective Date of Service: 09/17/18 Chief Complaint: Status post fall with left-sided rib fractures Patient seen and examined at bedside with RN. Chart reviewed. Case discussed with pulmonology and nephrology at this time. Patient continues to have nausea and vomiting along with diarrhea at this time. Denies having any shortness of breath or chest pain at this time Review of Systems 10-point ROS is otherwise unremarkable Physical Examination - Vital Signs Temperature: 99.4 F Blood Pressure: 131/60 Pulse: 119 Respirations: 20 Pulse Ox (%): 95 - Physical Exam General: Alert, Oriented x3, Other (Ill-appearing) HEENT: Atraumatic, PERRLA, EOMI Neck: Supple, JVD not distended Respiratory: Normal air movement, Expiratory wheezes, Inspiratory wheezes Cardiovascular: Regular rate/rhythm, Normal S1 S2 Gastrointestinal: Normal bowel sounds, No tenderness Musculoskeletal: No tenderness Integumentary: No rashes Neurological: Normal speech, Normal tone, Normal affect Lymphatics: No axilla or inguinal lymphadenopathy - Studies Laboratory Data (last 24 hrs) 09/16/18 19:45: PT 14.7 H, INR 1.24 09/16/18 19:45: Magnesium 2.0 09/16/18 18:15: Creatinine 2.73 H 09/16/18 18:15: WBC 18.1 H, Hgb 11.6 L, Hct 35.5 L, Plt Count 400 09/16/18 18:15: Sodium 135 L, Potassium 4.4, BUN 41 H, Creatinine 2.65 H, Glucose 115 H, Total Bilirubin 0.5, AST 16, ALT 19, Alkaline Phosphatase 94, Lipase 175 Medications List Reviewed: Yes Assessment And Plan - Current Problems (Diagnosis) (1) Intractable nausea and vomiting Current Visit: Yes Status: Acute Plan: Intractable nausea and vomiting at this time. Most likely secondary to renal azotemia -IV fluids at this time along with IV Zofran. -abdominal CT consistent with adrenal metastasis along with lung mass. Qualifiers: Vomiting type: cyclical vomiting Qualified Code(s): G43.A1 - Cyclical vomiting, intractable (2) Diarrhea Current Visit: Yes Status: Acute Plan: Diarrhea x2 days. Continues to have 3-4 episodes since admission here in the hospital. Most likely secondary to renal azotemia -IV fluids at this time -stool cultures are pending at this time -C. diff is negative -will give anti diarrheal Qualifiers: Diarrhea type: presumed infectious Qualified Code(s): R19.7 - Diarrhea, unspecified (3) Acute kidney injury Onset Date: 09/17/18 Current Visit: Yes Status: Acute Plan: Acute kidney injury on chronic kidney injury most likely secondary to worsening hypertension along with diabetes -nephrology consulted. Appreciated recommendations at this time -IV fluids -possible renal ultrasound along with kidney function tests (4) Fall Onset Date: 09/17/18 Current Visit: Yes Status: Acute Plan: Status post fall at the house 2 days ago -CT scan with rib fractures -physical therapy has been consult -fall precaution Qualifiers: Encounter type: initial encounter Qualified Code(s): W19.XXXA - Unspecified fall, initial encounter (5) Lung mass Onset Date: 09/17/18 Current Visit: Yes Status: Acute Plan: Chest abdomen and pelvis with lung mass most likely neoplastic in nature. Patient with a history of smoking over 30 years, 2 packs initially and now down to 1 pack a day -pulmonology has been consulted. Awaiting recommendations at this time -patient may need bronchoscopy will wait for pulmonology recommendations (6) Rib fracture Onset Date: 09/17/18 Current Visit: Yes Status: Acute Plan: Right-sided rib fracture 9th and 10th. Status post fall -incentive spirometer at this time -pain management as needed. Qualifiers: Encounter type: initial encounter Rib fracture type: multiple ribs Fracture type: closed Laterality: right Qualified Code(s): S22.41XA - Multiple fractures of ribs, right side, initial encounter for closed fracture (7) Hypertension Onset Date: 09/17/18 Current Visit: Yes Status: Chronic Qualifiers: Hypertension type: essential hypertension Qualified Code(s): I10 - Essential (primary) hypertension (8) Type 2 diabetes mellitus Onset Date: 09/17/18 Current Visit: Yes Status: Chronic Qualifiers: Diabetes mellitus intermediate insulin use: without intermediate use Diabetes mellitus complication status: without complication Qualified Code(s): E11.9 - Type 2 diabetes mellitus without complications Discharge Plan: Home Plan to discharge in: 48 Hours - Code Status/Comfort Care Code Status Assessed: Yes Critical Care: No
[2018-09-17] MEDS: ATORVASTATIN 20 MG TAB PO SCH (20:38)
--- NOTE | 2018-09-17 21:31 | RAD REPORT ---
EXAM DESCRIPTION: RAD - Ribs Left - 09/17/2018 9:21 pm CLINICAL HISTORY: Rib fractures COMPARISON: Chest Single View dated 09/16/2018; CT CHEST,ABD,PELVIS W/O dated 09/16/2018 FINDINGS: Subtle lucency is seen in the lateral aspect of the left fifth and sixth ribs, likely subt le fracture. In addition, slightly displaced fractures seen in the posterior aspect of the left ninth and tenth ribs. Atelectasis is noted in the left base.
[2018-09-18] MEDS: NA CHLORIDE 0.9% 1,000 ML IV SCH ×3 (00:27→20:41)
[2018-09-18] MEDS: ALBUTEROL 2.5 MG/3 ML NEB SOL NEB SCH ×2 (02:00→07:47)
--- NOTE | 2018-09-18 02:40 | CON ---
Date of Consultation: 09/17/2018 Chief Complaint: Acute kidney injury. History Of Present Illness: Acute kidney injury, severe, nonoliguric associated with renal hypoperfusion complicated by nonoliguric ATN. On arrival to the hospital, the patient was found to have a creatinine up to 2.6. Renal function has not improved over last 24 hours. Today, creatinine is 3.03. The patient has hypovolemia. The patient is started on IV fluids. Primarily blood work was obtained on September 16 and showed sodium of 135, potassium 4.4, chloride 104, BUN 41, creatinine 2.65. The patient was found to have hypoalbuminemia, malnutrition, p.o. intake has declined over last several weeks. The patient has nonoliguric urine output and he denies nausea, vomiting at this point. The patient is a 78-year-old man who came to the hospital after he sustained a fall. He apparently suffered rib fractures and a CT scan was performed and showed a lung mass with lymph nodes around the aorta and adrenal metastasis. The patient is admitted to the hospital for further workup. The patient is to have x-ray for rib fracture to evaluate further. The patient was started on IV fluids, p.o. intake has not improved significantly over last 24 hours. Review of Systems: Constitutional: The patient denies fever, chills. He is complaining of generalized weakness. He sustained fall at home. GI: He denies nausea, vomiting. Cardiovascular: Denies chest pain, palpitations. Denies syncope. : Denies dysuria, hematuria. Musculoskeletal: He is complaining of muscle aches. Denies gout. Skin: Denies and skin rashes. Neurologic: Denies seizure. All other systems reviewed and all are negative. Family History: Father had hypertension. Social History: Never smoked. Alcohol, denies alcohol intake. Past Medical History: Hypertension, diabetes mellitus, and hyperlipidemia, chronic kidney disease stage 3, coronary artery disease, myocardial infarction, skin cancer, hypertensive heart and kidney disease. Physical Examination: General: The patient is awake, alert, follows commands. Eyes: Anicteric sclerae. EOMI. Ears, Nose, Mouth and Throat: Oral mucosa moist. No pallor. Neck: Supple. No JVD. No bruits. Lungs: Diminished breath sounds at bases. Few rhonchi. Heart: S1, S2. RRR Abdomen: Soft, benign. No CVA tenderness. Extremities: No clubbing, no cyanosis, no edema. Neurological: Moving extremities. Cranial nerves intact. Psychiatric: Alert, oriented x3. Normal affect. Laboratory Data: INR 1.24, PT 14.7, magnesium 2.0, creatinine 2.73, WBC 18.1. Hemoglobin 11.6, hematocrit 35.5, and platelet count 400,000. BUN 41, potassium 4.4, sodium 135, creatinine 2.65, glucose 115, lipase 175, ALT 19, AST 10. Impression And Plan: 1. Status post fall, generalized weakness. I recommend to check CK level to rule out rhabdomyolysis. The patient has severe acute kidney injury on chronic kidney disease stage 3. Continue IV fluids to prevent renal hypoperfusion and treat acute kidney injury. 2. Metastatic cancer. Workup is pending with Pulmonary. 3. The patient will have renal ultrasound to assess kidney size and echotexture. 4. Diabetes mellitus. Monitor proteinuria. At this point, the patient cannot tolerate CRYSTAL inhibitor because of acute kidney injury. 5. Lung mass. Prognosis overall poor. Workup per Pulmonary and primary team. LAZARO/MODAga Voice ID: [id number] Report ID: [id number] LAURA
[2018-09-18] MEDS: LOPERAMIDE HCL 2 MG CAPSULE PO PRN ×2 (04:19→17:30)
[2018-09-18] MEDS: MORPHINE 4 MG/ML SYR IV PRN ×2 (04:23→08:47)
[2018-09-18] MEDS: IPRATROPIUM BROM 0.5MG/2.5ML NEB PRN (07:47)
[2018-09-18] MEDS: AMLODIPINE 10 MG TAB PO SCH (08:00)
[2018-09-18] MEDS: NATEGLINIDE 60 MG TAB PO SCH ×2 (08:13→16:30)
[2018-09-18] MEDS ORDERED: ALBUTEROL 2.5 MG/3 ML NEB SOL NEB PRN (08:19)
--- NOTE | 2018-09-18 08:21 | P.CNS ---
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 right now is complaining of being on inspiration multi lung problems he is an active smoker 1 pack a day undo have a left lower lobe lung mass rhythm bilaterally and any metastases history of cardiopulmonary problems use chronic renal insufficiency from diabetes Allergies flu vaccine Allergy (Uncoded 08/02/16 08:36) hives and swelling from injection site radiating up arm Home Medications: Amlodipine [Norvasc*] 10 mg PO DAILY 09/17/18 Ascorbic Acid [Vitamin C] 500 mg PO DAILY 09/17/18 Aspirin [Aspirin EC 81 MG] 81 mg PO DAILY 09/17/18 Cholecalciferol (Vitamin D3) [D3-50] 10,000 unit PO DAILY 09/17/18 Ezetimibe [Zetia*] 10 mg PO DAILY 09/17/18 Finasteride [Proscar*] 5 mg PO DAILY 09/17/18 Insulin Glargine,Hum.rec.anlog [Lantus Solostar] 40 units SQ BID 09/17/18 Krill/Om-3/Dha/Epa/Phospho/Ast [Krill Oil 500 mg Softgel] 500 mg PO DAILY Losartan Potassium [Cozaar] 100 mg PO DAILY 09/17/18 Metoprolol Succinate [Toprol Xl] 200 mg PO DAILY 09/17/18 Montelukast [Singulair*] 10 mg PO DAILY 09/17/18 Multivit-Min/FA/Lycopen/Lutein [Centrum Silver Tablet] 1 tab PO DAILY 09/17/18 Nateglinide [Starlix] 120 mg PO BID 09/17/18 Simvastatin [Zocor] 40 mg PO BEDTIME 09/17/18 Tamsulosin [Flomax*] 0.4 mg PO BEDTIME 09/17/18 - Past Medical/Surgical History Diabetic: Yes -: cancer scalp -: [place] -: IDDM -: hyperlipidemia -: HTN -: Chronic kidney disease - Family History Father Family History: Reviewed- Non-Contributory - Social History Smoking Status: Current every day smoker Alcohol use: No CD- Drugs: No Caffeine use: Yes Place of Residence: Home Review of Systems 10-point ROS is otherwise unremarkable Physical Examination Temp Pulse Resp BP Pulse Ox 97.8 F 97 H 20 119/58 L 92 09/18/18 04:00 09/18/18 04:00 09/18/18 04:00 09/18/18 04:00 09/18/18 04:00 General: Alert, Oriented x3, Mild distress Neck: Supple Respiratory: Clear to auscultation bilaterally Cardiovascular: No edema, Regular rate/rhythm, Normal S1 S2 Gastrointestinal: Normal bowel sounds, Soft and benign - Problems (1) Lung mass Onset Date: 09/17/18 Current Visit: Yes Status: Acute Plan: The 78 years of age admitted with fractures of his left ribs he does have a left lower lobe mass with possible internal metastasize he is a very heavy smoker no prior history of cardiopulmonary disease the radiologist evaluation for a possible biopsy of his adrenal masses that show chronic renal insufficiency the patient is an important of the biopsy evaluate the implant operation biopsy prognosis is very poor suggestive of stage IV lung cancer
[2018-09-18] MEDS: METOPROLOL XL 100 MG TAB PO SCH (08:58)
[2018-09-18] MEDS: FINASTERIDE 5 MG TAB PO SCH (08:58)
[2018-09-18] MEDS: ASCORBIC ACID 500 MG TABLET PO SCH (08:59)
[2018-09-18] MEDS: ENOXAPARIN 30 MG/0.3 ML SQ SCH (09:00)
[2018-09-18] MEDS: INSULIN GLARGINE 100 UNITS/ML SQ SCH ×3 (09:00→20:39)
[2018-09-18] MEDS: ASPIRIN EC 81 MG TAB PO SCH (09:00)
[2018-09-18 11:48] LABS: Protime INR 1.4
[2018-09-18] MEDS: LOSARTAN POTASSIUM 50 MG TABLET PO SCH (11:59)
--- NOTE | 2018-09-18 13:21 | P.PN ---
Subjective Date of Service: 09/18/18 Chief Complaint: Lung mass with possible meds Patient seen and examined at bedside with RN. Chart reviewed. Case discussed with pulmonology , radiology and quality control lab technician at this time. Patient states that his nausea and vomiting has resolved today. Diarrhea is improving however he still has diarrheal episodes throughout the night and this morning as well. A detailed discussion regarding the plan of care was done with patient's daughter at bedside. Patient's does have Alzheimer's dementia and thus unable to make any medical decisions. Patient's daughter Monica araujoton to be making his medical decisions at this time. Review of Systems 10-point ROS is otherwise unremarkable Physical Examination - Vital Signs Temperature: 97.7 F Blood Pressure: 136/60 Pulse: 104 Respirations: 18 Pulse Ox (%): 94 - Physical Exam General: Alert, Oriented x3, Other (Ill-appearing cachectic elderly individual.) HEENT: Atraumatic Neck: Supple, JVD not distended Respiratory: Normal air movement, Expiratory wheezes, Inspiratory wheezes, Rhonchi/gurgles Cardiovascular: Regular rate/rhythm, Normal S1 S2 Gastrointestinal: Normal bowel sounds, No tenderness Musculoskeletal: No tenderness Integumentary: No rashes Neurological: Normal speech, Normal tone, Normal affect Lymphatics: No axilla or inguinal lymphadenopathy - Studies Microbiology Data (last 24 hrs): 09/16/18 21:10 Clean Catch Urine [place] Count - Final 09/16/18 21:10 Clean Catch Urine - Final Medications List Reviewed: Yes Assessment And Plan - Current Problems (Diagnosis) (1) Lung mass Onset Date: 09/17/18 Current Visit: Yes Status: Acute Plan: Chest abdomen and pelvis with lung mass most likely neoplastic in nature. Patient with a history of smoking over 30 years, 2 packs initially and now down to 1 pack a day -pulmonology has been consulted. Recommendations appreciated at this time -and we will to perform biopsy given the location of the mass -Radiology consulted. Recommendations appreciated at this time -scheduled for CT-guided lung mass biopsy tomorrow a.m. -NPO after midnight and consent signed by the patient's family. (2) Acute kidney injury Onset Date: 09/17/18 Current Visit: Yes Status: Acute Plan: Acute kidney injury on chronic kidney injury most likely secondary to dehydration from diarrhea and nausea and vomiting -nephrology consulted. Appreciated recommendations at this time -IV fluids NS at 75 mL an hr -possible renal ultrasound along with kidney function tests (3) Rib fracture Onset Date: 09/17/18 Current Visit: Yes Status: Acute Plan: Right-sided rib fracture 9th and 10th. Status post fall secondary to generalized weakness -incentive spirometer at this time -pain management as needed. Qualifiers: Encounter type: initial encounter Rib fracture type: multiple ribs Fracture type: closed Laterality: right Qualified Code(s): S22.41XA - Multiple fractures of ribs, right side, initial encounter for closed fracture (4) Fall Onset Date: 09/17/18 Current Visit: Yes Status: Acute Plan: Status post fall at the house 2 days ago secondary to generalized weakness -CT scan with rib fractures -physical therapy has been consult -fall precaution Qualifiers: Encounter type: initial encounter Qualified Code(s): W19.XXXA - Unspecified fall, initial encounter (5) Intractable nausea and vomiting Current Visit: Yes Status: Acute Plan: Intractable nausea and vomiting at this time. 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 -improving today. Advanced to a clear liquid diet -abdominal CT consistent with adrenal metastasis along with lung mass. Qualifiers: Vomiting type: cyclical vomiting Qualified Code(s): G43.A1 - Cyclical vomiting, intractable (6) Diarrhea Current Visit: Yes Status: Acute Plan: Diarrhea x2 days. Continues to have 3-4 episodes since admission here in the hospital. Most likely secondary to radiation -IV fluids at this time -stool cultures negative thus far -C. diff is negative -will give anti diarrheal Qualifiers: Diarrhea type: functional diarrhea Qualified Code(s): K59.1 - Functional diarrhea (7) Squamous cell carcinoma Current Visit: Yes Status: Acute Plan: Currently getting radiation therapy at the [facility]. (8) Hypertension Onset Date: 09/17/18 Current Visit: Yes Status: Chronic Qualifiers: Hypertension type: essential hypertension Qualified Code(s): I10 - Essential (primary) hypertension (9) Type 2 diabetes mellitus Onset Date: 09/17/18 Current Visit: Yes Status: Chronic Qualifiers: Diabetes mellitus fci insulin use: without long term care social worker use Diabetes mellitus complication status: without complication Qualified Code(s): E11.9 - Type 2 diabetes mellitus without complications - Plan Pending clinical improvement at this time. Patient has been scheduled for a CT- guided biopsy of the lung mass. Will follow up with radiology and patient postprocedure. Family understanding of the situation as well. Patient will most likely need a snf facility placement once medically cleared for discharge home. Discharge Plan: Home Plan to discharge in: 48 Hours - Code Status/Comfort Care Code Status Assessed: Yes Critical Care: No
--- NOTE | 2018-09-18 14:45 | RAD REPORT ---
EXAM DESCRIPTION: US - Chest - 09/18/2018 2:31 pm CLINICAL HISTORY: Left lung mass FINDINGS: Ultrasound was performed to assess whether a left lung mass would be accessible by ultraso und for biopsy. A 6 centimeter mass is present within the posterior left lower lobe abutting the posterior chest wall . The mass lies approximately 3 centimeters from the skin surface. IMPRESSION: 6 centimeter left lower lobe mass
--- NOTE | 2018-09-18 14:48 | RAD REPORT ---
EXAM DESCRIPTION: US - Renal Ultrasound-Complete - 09/18/2018 2:32 pm CLINICAL HISTORY: . Abdominal pain FINDINGS: The right kidney measures 10 cm with a normal echotexture. A 1 centimeter right renal cyst The left kidney measures 10 cm with a normal echotexture. Hydronephrosis is not seen. Limited evaluation the bladder as it is decompressed secondary to a Barr catheter in place IMPRESSION: 1 centimeter right renal cyst
--- NOTE | 2018-09-18 20:28 | PN ---
Date of Progress Note: 09/18/2018 Subjective: The patient doing the same, still weak. Physical Examination: Vital Signs: Blood pressure 136/60, pulse of 104. Afebrile. Chest: Clear to auscultation. Heart: S1, S2 regular. Abdomen: Soft, nontender. Extremities: No edema. Laboratory Data: WBC 16.3, H and H 10.5 and 31.9, platelet 352. Sodium 138, potassium 5, bicarb 23, BUN 46, creatinine of 3, GFR of 20, calcium 8.7, phosphorus 5.7. Current Medications: The patient on include: 1.Aspirin. 2.Lovenox. 3.Norvasc 10. 4.Metoprolol. 5.Tylenol. 6.Ipratropium. 7.Starlix. 8.Insulin. 9.IV fluid 100 per hour. 10.Finasteride. 11.Vitamin C. Assessment And Plan: 1.Acute kidney injury, on chronic kidney disease, worsening in the kidney function, still looked to me on the dry side. I am going to continue IV hydration. We will send for the workup for the patien t. 2.I can go ahead and send for uric acid to rule out any tumor lies, and we will monitor. 3.Hypertension, controlled optimal. Continue current medication. 4.Lung mass as by Pulmonary. SAMANTHA/RADHA Voice ID: [id number] Report ID: [id number]
[2018-09-18] MEDS: ATORVASTATIN 20 MG TAB PO SCH (20:36)
[2018-09-19] MEDS: LOPERAMIDE HCL 2 MG CAPSULE PO PRN (00:51)
[2018-09-19] MEDS: ONDANSETRON 4 MG/2 ML VIAL IV PRN (05:07)
[2018-09-19 06:22] LABS: RBC Red Blood Cell Count 3.89 M/uL (4.33-5.43)
[2018-09-19 06:47] LABS: Protime INR 1.3
[2018-09-19 07:04] LABS: Ferritin 992.2 ng/mL (26-388); Folic Acid, (Folate) > 20.0 ng/mL (3.1-17.5); Transferrin 129 mg/dL (200-360); Uric Acid 7.6 mg/dL (3.5-7.2)
[2018-09-19] MEDS: NATEGLINIDE 60 MG TAB PO SCH ×2 (07:30→17:38)
[2018-09-19] MEDS: AMLODIPINE 10 MG TAB PO SCH (08:00)
[2018-09-19] MEDS: METOPROLOL XL 100 MG TAB PO SCH (08:00)
[2018-09-19] MEDS: INSULIN GLARGINE 100 UNITS/ML SQ SCH ×2 (08:54→21:00)
[2018-09-19] MEDS: FINASTERIDE 5 MG TAB PO SCH (08:54)
[2018-09-19] MEDS: ASCORBIC ACID 500 MG TABLET PO SCH (08:54)
[2018-09-19] MEDS: NA CHLORIDE 0.9% 1,000 ML IV SCH ×3 (08:55→21:14)
[2018-09-19] MEDS ORDERED: MIDAZOLAM HCL 2 MG/2 ML INJ ONE (10:43)
[2018-09-19] MEDS ORDERED: FENTANYL CITR 100 MCG/2 ML ONE (10:43)
[2018-09-19] MEDS ORDERED: FLUMAZENIL 0.1 MG/ML (5 mL VIAL) IV ONE (10:44)
[2018-09-19] MEDS ORDERED: NA CHLORIDE 0.9% 500 ML ONE (11:14)
--- NOTE | 2018-09-19 12:00 | ECHO ---
HEIGHT: 5 ft 10 in WEIGHT: 192 lb 14.4 oz DATE OF STUDY: 09/19/[address]: Apolonia Milligan MD 2-DIMENSIONAL: YES M.MODE: YES DOPPLER: YES COLOR FLOW: YES TDS: YES PORTABLE: NO DEFINITY: NO BUBBLE STUDY: NO DIAGNOSIS: CONGESTIVE HEART FAILURE CARDIAC HISTORY: CATHERIZATION: NO SURGERY: NO PROSTHETIC VALVE: NO PACEMAKER: NO MEASUREMENTS (cm) DIASTOLIC (NORMALS) SYSTOLIC (NORMALS) IVSd 1.0 (0.6-1.2) LA Diam (1.9-4.0) LVEF 74% LVIDd 4.8 (3.5-5.7) LVIDs 2.7 (2.0-3.5) %FS 43% LVPWd 1.1 (0.6-1.2) Ao Diam 3.1 (2.0-3.7) 2 DIMENSIONAL ASSESSMENT: RIGHT ATRIUM: NORMAL LEFT ATRIUM: NORMAL RIGHT VENTRICLE: NORMAL LEFT VENTRICLE: NORMAL TRICUSPID VALVE: NORMAL MITRAL VALVE: NORMAL PULMONIC VALVE: NORMAL AORTIC VALVE: NORMAL PERICARDIAL EFFUSION: NONE AORTIC ROOT: NORMAL LEFT VENTRICULAR WALL MOTION: NORMAL. DOPPLER/COLOR FLOW: NORMAL. COMMENTS: NORMAL 2D ECHO WITH DOPPLER. TECHNOLOGIST: SUDHEER MAST
[2018-09-19] MEDS ORDERED: DIPHENOX/ATROP SULF 1 TAB PO PRN (12:30)
--- NOTE | 2018-09-19 12:39 | P.PN ---
Subjective Date of Service: 09/19/18 Primary Care Provider: unknown Chief Complaint: Lung mass with possible meds Subjective: Other (Still with diarrhea) Physical Examination - Vital Signs Temperature: 97.9 F Blood Pressure: 137/65 Pulse: 84 Respirations: 18 Pulse Ox (%): 95 - Physical Exam General: Alert, In no apparent distress, Oriented x3, Cooperative HEENT: Atraumatic Neck: Supple Respiratory: Clear to auscultation bilaterally, Normal air movement Cardiovascular: Normal pulses, Regular rate/rhythm Gastrointestinal: Normal bowel sounds, Soft and benign, Non-distended, No masses , No rebound, No guarding Musculoskeletal: No erythema, No tenderness, No warmth Integumentary: No tenderness/swelling, No erythema, No warmth, No cyanosis - Studies Microbiology Data (last 24 hrs): 09/16/18 21:10 Clean Catch Urine [place] Count - Final 09/16/18 21:10 Clean Catch Urine - Final Medications List Reviewed: Yes Assessment & Plan Discharge Plan: Home Plan to discharge in: Greater than 2 days Physician Review Additional Text: Impression: 5 cm left medial lung mass likely primary lung cancer with noted enlarged tia aortic and small bowel mesenteric adenopathy and large adrenal masses likely metastatic, status post lung biopsy with noted 10% left base pneumothorax Acute renal injury likely from diarrhea, nausea and vomiting Right-sided rib fracture 9th and 10th status post fall Hypertension Diabetes mellitus type 2 Iron deficiency anemia Plan: 5 cm left medial lung mass likely primary lung cancer with noted enlarged tia aortic and small bowel mesenteric adenopathy and large adrenal masses likely metastatic, status post lung biopsy with noted 10% left base pneumothorax: Spoke with pulmonology earlier today. Patient had lung biopsy done. Case also discuss with radiology as lung biopsy was done. 10% left base pneumothorax was noted. Patient will have repeat x-ray in 3 hr to monitor closely. Hopefully the patient will not require chest tube. Will continue monitor closely. Will maintain sats above 90%. Encourage incentive spirometer. Acute renal injury likely from diarrhea, nausea and vomiting: Continue to monitor closely. Case discussed with nephrology. C diff negative. Will add probiotics and Lomotil. Will discontinue Imodium. Patient reports diarrhea as chronic. Right-sided rib fracture 9th and 10th status post fall: Encourage incentive spirometer and physical therapy. Hypertension: Continue with medication. Will monitor and adjust appropriately Diabetes mellitus type 2: Continue with sliding scale. Iron deficiency anemia: Will monitor closely. Time Spent Managing Pts Care (In Minutes): 55
--- NOTE | 2018-09-19 12:45 | RAD REPORT ---
EXAM DESCRIPTION: CT - Lung Biopsy Perc w/CT - 09/19/2018 12:33 pm CLINICAL HISTORY: Left lower lobe lung mass, bilateral adrenal masses ; patient for diagnostic biops y COMPARISON: Chest film September 17, CT imaging September 16 TECHNIQUE: Patient presents for diagnostic biopsy of left lower lobe mass or adrenal mass. Patient w as consented for both procedures. The procedure, risks and alternatives were discussed with the patie nt in detail. Both oral and written consent were obtained. Patient off of 81 milligram aspirin therap y for 6 days. Patient had no contraindicated allergy or medication otherwise noted. IV access and physiologic monitors were in place. Patient was monitored by nursing personnel over the course of the examination. Conscious sedation time was 45 minutes. Due to pain, the patient was able to tolerate only a right lateral decubitus positioning for the exam ination. With this positioning in the right adrenal gland was not accessible and the left adrenal gla nd mass was too deep for access using available biopsy needles. Left lower lobe mass was selected for biopsy. In a right lateral decubitus position, the patient was imaged. Left lower lobe mass was identifiable. Access site was selected. The patient was pre-medicated with a 1.0 milligrams Versed IV and 100 micr ograms fentanyl IV. An additional 50 microgram dose of fentanyl was used midway through the biopsy. T john-out procedure was performed prior to any medication administration. Skin access site was selected. Skin and deeper tissues down to the pleura anesthetized with 1% lidoca ine. Under CT guidance, an introducer needle was advanced. Tip was placed at the pleural margin. An 1 8 gauge biopsy needle was advanced through the introducer. A 2 centimeter core biopsy was obtained th rough the lung mass. CT guidance was utilized to assure good placement of the needle tip. A second bi opsy was obtained through the same introduced per needle. Preliminary cytology indicated adequate specimen sample. Post biopsy imaging showed approximately 10% left base pneumothorax. No pleural fluid or blood identifiable. No parenchymal hematoma. Introducer needle was removed. A sterile bandage placed to the puncture site. Patient was transferred by stretch er to the radiology department for post biopsy chest film with plan 4 3 hour post biopsy chest film. Vital signs were stable throughout the procedure. Findings telephoned to Drs. Westbrook and Bob. IMPRESSION: CT-guided biopsy was completed of the left lower lobe mass. Preliminary cytology indicat ed adequate specimen for diagnosis. The patient has an approximately 10% left base pneumothorax the will be monitored on follow-up chest films.
--- NOTE | 2018-09-19 12:47 | RAD REPORT ---
EXAM DESCRIPTION: RAD - Chest Single View - 09/19/2018 12:36 pm CLINICAL HISTORY: Immediate post biopsy chest film, small pneumothorax on CT imaging COMPARISON: CT imaging September 19 TECHNIQUE: AP portable chest image was obtained 1234 hours . FINDINGS: AP chest examination was obtained immediately following biopsy. On CT imaging patient had a left base 10% pneumothorax. On portable imaging no pneumothorax is identifiable. No abnormal pleural fluid collections seen. Shanna ent has a known left lung base mass. Heart and vasculature are normal. IMPRESSION: No left-sided pneumothorax identifiable. The patient's known 10% left base pneumothorax based on CT imaging is not evident on portable chest film.
[2018-09-19 13:54] LABS: Potassium 4.1 mmol/L (3.5-5.1)
[2018-09-19] MEDS: LACTOBACILLUS/ACIDOPHILUS TAB PO SCH ×2 (15:57→20:12)
[2018-09-19] MEDS: ACETAMINOPHEN 500 MG TAB PO PRN ×2 (16:04→20:13)
--- NOTE | 2018-09-19 16:29 | RAD REPORT ---
EXAM DESCRIPTION: RAD - Chest Single View - 09/19/2018 3:43 pm CLINICAL HISTORY: 3 hour post biopsy chest film COMPARISON: Plain film September 19, CT lung biopsy images September 19 TECHNIQUE: AP portable chest image was obtained 1541 hours . FINDINGS: No pneumothorax is identifiable. Left lung apex is similar in appearance to the right. Pat ient had an approximately 10% left base pneumothorax immediately post biopsy. Left base has no change from earlier examination. Heart and vasculature are normal. No pleural fluid collections seen. No ac rafy bony abnormality seen. No acute aortic findings suspected. IMPRESSION: The small left base pneumothorax seen on CT imaging has no correlate on portable chest e xamination. Repeat imaging could be performed if the patient becomes symptomatic.
[2018-09-19] MEDS: IPRATROPIUM BROM 0.5MG/2.5ML NEB PRN (20:10)
[2018-09-19] MEDS: ATORVASTATIN 20 MG TAB PO SCH (20:13)
[2018-09-19] MEDS ORDERED: MORPHINE 2 MG/ML SYR IV PRN (20:51)
[2018-09-19] MEDS: MORPHINE 4 MG/ML SYR IV PRN (21:13)
[2018-09-19 23:31] LABS: Urine Protein/Creatinine Ratio 1.55 ratio (<0.15)
[2018-09-20] MEDS: ACETAMINOPHEN 500 MG TAB PO PRN (01:17)
--- NOTE | 2018-09-20 02:32 | PN ---
Date of Progress Note: 09/19/2018 Subjective: The patient underwent biopsy today complicated with a pneumothorax. Physical Examination: Vital Signs: Blood pressure 127/59, pulse of 111. Chest: Decreased entry on the left base. Heart: S1, S2, regular. Systolic murmur. Abdomen: Soft, nontender. Extremities: No edema. Laboratory Data: H and H 10.5/31.9. Sodium 142, potassium 4.1, bicarb 20, BUN 43, creatinine 1.8, c alcium 8.4. Current Medications: Include, 1.Aspirin. 2.Promethazine. 3.Norvasc. 4.Atorvastatin. 5.Metoprolol 200 b.i.d. 6.Zofran. 7.Finasteride. Assessment And Plan: 1.Acute kidney injury secondary to prerenal, on the recovery, stabilized. I am going to continue to monitor. 2.Hypertension, control optimal. Continue current medication. 3.Suspect a mass status post biopsy complicated with a pneumothorax. We will follow up with the Luz michele. ALAN Voice ID: [id number] Report ID: [id number]
[2018-09-20] MEDS: MORPHINE 4 MG/ML SYR IV PRN ×2 (03:48→21:18)
[2018-09-20 04:45] LABS: Absolute Lymphocytes (CBC) 0.9 K/uL (0.7-4.9); Absolute Monocytes 1.4 K/uL (0.1-1.3); Absolute Neutrophil 10.8 K/uL (1.8-8.0); Basophils % 0.7 % (0-1.3); Eosinophils % 1.6 % (0-4.4); Hematocrit 29.6 % (39.6-49.0); Lymphocytes % 7.1 % (15.3-44.8); Monocytes % 10.2 % (3.3-12.3); RBC Red Blood Cell Count 3.68 M/uL (4.33-5.43)
[2018-09-20 04:56] LABS: Potassium 3.9 mmol/L (3.5-5.1)
[2018-09-20] MEDS: NA CHLORIDE 0.9% 1,000 ML IV SCH ×2 (05:00→16:40)
[2018-09-20] MEDS ORDERED: POTASSIUM CL SA 10 MEQ TAB PO ONE (07:15)
[2018-09-20] MEDS: AMLODIPINE 10 MG TAB PO SCH (08:34)
[2018-09-20] MEDS: NATEGLINIDE 60 MG TAB PO SCH ×2 (08:34→16:38)
[2018-09-20] MEDS: ASCORBIC ACID 500 MG TABLET PO SCH (08:34)
[2018-09-20] MEDS: LACTOBACILLUS/ACIDOPHILUS TAB PO SCH ×3 (08:34→21:18)
[2018-09-20] MEDS: METOPROLOL XL 100 MG TAB PO SCH (08:34)
[2018-09-20] MEDS: FINASTERIDE 5 MG TAB PO SCH (08:34)
[2018-09-20] MEDS: ENOXAPARIN 30 MG/0.3 ML SQ SCH (08:35)
[2018-09-20] MEDS: INSULIN GLARGINE 100 UNITS/ML SQ SCH ×2 (08:35→21:00)
[2018-09-20] MEDS: ASPIRIN EC 81 MG TAB PO SCH (08:36)
--- NOTE | 2018-09-20 10:47 | P.PN ---
Subjective Date of Service: 09/20/18 Primary Care Provider: unknown Chief Complaint: Lung mass with possible meds Subjective: Other (Patient doing well this time. Still with pain to the left ribcage region. Room-air saturations within normal range.) Physical Examination - Vital Signs Temperature: 98.2 F Blood Pressure: 165/76 Pulse: 88 Respirations: 18 Pulse Ox (%): 95 - Physical Exam General: Alert, In no apparent distress, Oriented x3, Cooperative HEENT: Atraumatic Neck: Supple Respiratory: Clear to auscultation bilaterally, Normal air movement Cardiovascular: Normal pulses, Regular rate/rhythm Gastrointestinal: Normal bowel sounds, Soft and benign, Non-distended, No tenderness, No masses, No rebound, No guarding Musculoskeletal: No erythema, No tenderness, No warmth Integumentary: No tenderness/swelling, No erythema, No warmth, No cyanosis Neurological: Normal speech, Normal strength at 5/5 x4 extr, Normal tone, Normal affect - Studies Medications List Reviewed: Yes Assessment & Plan Discharge Plan: Other (long term facility) Plan to discharge in: 24 Hours Physician Review Additional Text: Impression: 5 cm left medial lung mass likely primary lung cancer with noted enlarged tia aortic and small bowel mesenteric adenopathy and large adrenal masses likely metastatic, status post lung biopsy with noted 10% left base pneumothorax Acute renal injury likely from diarrhea, nausea and vomiting Right-sided rib fracture 9th and 10th status post fall Hypertension Diabetes mellitus type 2 Iron deficiency anemia Plan: 5 cm left medial lung mass likely primary lung cancer with noted enlarged tia aortic and small bowel mesenteric adenopathy and large adrenal masses likely metastatic, status post lung biopsy with noted 10% left base pneumothorax: Patient doing well today. Will recheck chest x-ray to monitor pneumothorax. Oxygen saturations within normal range. Lung biopsy done yesterday. Await findings. Will discuss with pulmonology. Will have physical therapy assess ambulation. Patient desires skilled placement. Will contact delinquency prevention social worker to help in this process. Encourage incentive spirometer. Will maintain sats above 90%. Encourage ambulation. Acute renal injury likely from diarrhea, nausea and vomiting: Continue to monitor closely. Renal function continues to improve. Case discussed with nephrology. C diff negative. Right-sided rib fracture 9th and 10th status post fall: Encourage incentive spirometer and physical therapy. Medication for pain provided. Hypertension: Continue with medication. Overall stable. Will monitor and adjust appropriately Diabetes mellitus type 2: Continue with sliding scale. Iron deficiency anemia: Will monitor closely. Time Spent Managing Pts Care (In Minutes): 55
--- NOTE | 2018-09-20 10:59 | RAD REPORT ---
EXAM DESCRIPTION: RAD - Chest Pa And Lat (2 Views) - 09/20/2018 10:43 am CLINICAL HISTORY: Left lung biopsy prior day, small pneumothorax on post biopsy CT, history of left- sided rib fractures COMPARISON: Portable chest examinations September 19, CT imaging September 19 TECHNIQUE: PA and lateral views of the chest were obtained. FINDINGS: The lungs are fibrotic as a baseline. Left lung base mass again noted. Left costophrenic a ngle blunting is present. This may be a minimal amount of pleural fluid that has developed. No failur e or volume overload. Heart size is normal and central vasculature is within normal limits. No pne umothorax is identifiable. No acute bony finding noted. No aortic abnormality. IMPRESSION: No pneumothorax is identifiable. Small amount of pleural fluid is now present. Given the biopsy, blood in the pleural space cannot be excluded. There was no evidence for hemorrhage at the time of the biopsy.
[2018-09-20] MEDS: ONDANSETRON 4 MG/2 ML VIAL IV PRN (12:35)
[2018-09-20] MEDS: ATORVASTATIN 20 MG TAB PO SCH (21:18)
[2018-09-21] MEDS: NA CHLORIDE 0.9% 1,000 ML IV SCH ×4 (01:00→21:00)
--- NOTE | 2018-09-21 02:36 | PN ---
Date of Progress Note: 09/20/2018 Subjective: The patient better today. Start ambulating. Still have some shortness of breath, but m uch better. Physical Examination: Vital Signs: Blood pressure 140/63, pulse of 76, afebrile. Chest: Clear to auscultation. Heart: S1, S2 regular. Abdomen: Soft, nontender. Extremities: No edema. Laboratory Data: WBC 13.4, H and H 9.7/29.6, platelet 382. Sodium 143, potassium 3.9, bicarb 20, BU N 41, creatinine down to 1.7, GFR of 38, calcium 8.3, phosphorus 3, magnesium of 2. Current Medications: The patient is on include: 1.Aspirin. 2.Promethazine. 3.Lovenox. 4.Amlodipine 10 mg. 5.Atorvastatin. 6.Metoprolol 200. 7.Breathing treatment. 8.Starlix. 9.Insulin. 10.Finasteride. 11.KCl. Assessment And Plan: 1.Acute kidney injury secondary to prerenal, recovered, back to baseline. 2.Hypertension, controlled optimal. Continue current medication. 3.Lung mass status post biopsy complicated with a pneumothorax, will follow up with Pulmonary. SAMANTHA/RADHA Voice ID: [id number] Report ID: [id number]
[2018-09-21] MEDS: MORPHINE 4 MG/ML SYR IV PRN ×3 (04:55→17:46)
[2018-09-21 05:38] LABS: Absolute Lymphocytes (CBC) 1.4 K/uL (0.7-4.9); Absolute Monocytes 1.5 K/uL (0.1-1.3); Absolute Neutrophil 10.5 K/uL (1.8-8.0); Basophils % 0.7 % (0-1.3); Eosinophils % 2.7 % (0-4.4); Hematocrit 33.5 % (39.6-49.0); Lymphocytes % 10.3 % (15.3-44.8); MPV 7.7 fL (7.6-11.3); Monocytes % 10.7 % (3.3-12.3); RBC Red Blood Cell Count 4.18 M/uL (4.33-5.43)
[2018-09-21 05:53] LABS: Albumin 2.2 g/dL (3.4-5.0); Magnesium 2.1 mg/dL (1.8-2.4); Phosphorus 2.7 mg/dL (2.5-4.9); Potassium 4.5 mmol/L (3.5-5.1)
[2018-09-21] MEDS: METOPROLOL XL 100 MG TAB PO SCH (08:17)
[2018-09-21] MEDS: ASCORBIC ACID 500 MG TABLET PO SCH (08:18)
[2018-09-21] MEDS: LACTOBACILLUS/ACIDOPHILUS TAB PO SCH ×3 (08:18→21:57)
[2018-09-21] MEDS: AMLODIPINE 10 MG TAB PO SCH (08:18)
[2018-09-21] MEDS: FINASTERIDE 5 MG TAB PO SCH (08:18)
[2018-09-21] MEDS: ASPIRIN EC 81 MG TAB PO SCH (08:18)
[2018-09-21] MEDS: NATEGLINIDE 60 MG TAB PO SCH ×2 (08:19→16:29)
[2018-09-21] MEDS: ENOXAPARIN 30 MG/0.3 ML SQ SCH (08:19)
[2018-09-21] MEDS: INSULIN GLARGINE 100 UNITS/ML SQ SCH ×2 (08:20→21:00)
--- NOTE | 2018-09-21 10:52 | RAD REPORT ---
EXAM DESCRIPTION: RAD - Chest Pa And Lat (2 Views) - 09/21/2018 10:35 am CLINICAL HISTORY: follow up biopsy Chest pain. COMPARISON: Chest Pa And Lat (2 Views) dated 09/20/2018; Chest Single View dated 09/19/2018; Chest Sing le View dated 09/19/2018; Chest Single View dated 09/16/2018 FINDINGS: Minimal left apical pneumothorax is seen, estimated less than 5% of lung volume. Emphysema tous changes are present in lungs with patchy opacity in the left base posteriorly. Cardiac size is n ormal. IMPRESSION: Minimal left apical pneumothorax.
[2018-09-21 11:19] LABS: Hepatitis C Virus RNA (PCR)log <1.18 log IU/mL
--- NOTE | 2018-09-21 11:40 | P.PN ---
Subjective Date of Service: 09/21/18 Primary Care Provider: unknown Chief Complaint: Lung cancer Patient still has significant amount of left-sided chest pain from is fractured ribs recent biopsy shows a [id number] lung cancer he has cut minimal pneumothorax on the left side Review of Systems General: Weakness Respiratory: Pleuritic Pain Physical Examination - Vital Signs Temperature: 97.4 F Blood Pressure: 131/64 Pulse: 82 Respirations: 16 Pulse Ox (%): 93 - Physical Exam General: Alert, Oriented x3, Cooperative Neck: Supple Respiratory: Clear to auscultation bilaterally, Diminished - Studies Medications List Reviewed: Yes Assessment & Plan - Problems (Diagnosis) (1) Lung cancer Current Visit: Yes Status: Acute Plan: Patient is 78 years of age recent diagnosis of non-small cell lung cancer from an FNA was likely he has stage IV lung cancer due to involvement of the adrenals recommend evaluation by an oncologist minimal pneumothorax no progression since the biopsy renal function is improving Qualifiers: Laterality: left Physician Review Additional Text: Impression: 5 cm left medial lung mass likely primary lung cancer with noted enlarged tia aortic and small bowel mesenteric adenopathy and large adrenal masses likely metastatic, status post lung biopsy with noted 10% left base pneumothorax Acute renal injury likely from diarrhea, nausea and vomiting Right-sided rib fracture 9th and 10th status post fall Hypertension Diabetes mellitus type 2 Iron deficiency anemia Plan: 5 cm left medial lung mass likely primary lung cancer with noted enlarged tia aortic and small bowel mesenteric adenopathy and large adrenal masses likely metastatic, status post lung biopsy with noted 10% left base pneumothorax: Patient doing well today. Will recheck chest x-ray to monitor pneumothorax. Oxygen saturations within normal range. Lung biopsy done yesterday. Await findings. Will discuss with pulmonology. Will have physical therapy assess ambulation. Patient desires skilled placement. Will contact health social work professor to help in this process. Encourage incentive spirometer. Will maintain sats above 90%. Encourage ambulation. Acute renal injury likely from diarrhea, nausea and vomiting: Continue to monitor closely. Renal function continues to improve. Case discussed with nephrology. C diff negative. Right-sided rib fracture 9th and 10th status post fall: Encourage incentive spirometer and physical therapy. Medication for pain provided. Hypertension: Continue with medication. Overall stable. Will monitor and adjust appropriately Diabetes mellitus type 2: Continue with sliding scale. Iron deficiency anemia: Will monitor closely.
--- NOTE | 2018-09-21 13:40 | P.PN ---
Subjective Date of Service: 09/24/18 Primary Care Provider: unknown Chief Complaint: Lung cancer Subjective: Improving cr improving to 1.59 can remove Barr cleared for discharge from nephrology point of view will reduce IVF rate Physical Examination - Vital Signs Temperature: 97.4 F Blood Pressure: 131/64 Pulse: 82 Respirations: 16 Pulse Ox (%): 93 - Physical Exam General: In no apparent distress, Oriented x3 Neck: Supple, Without JVD or thyroid abnormality Respiratory: Clear to auscultation bilaterally Cardiovascular: No edema - Studies Medications List Reviewed: Yes Assessment And Plan - Current Problems (Diagnosis) (1) Acute kidney injury Onset Date: 09/17/18 Current Visit: Yes Status: Acute - Plan Acute kidney injury secondary to prerenal, Improving Cont IVF HTN still elevated will reduce IVF and monitor for now non small cell Lung mass Mgm as per pulmonary and oncology
[2018-09-21] MEDS: HYDROCODONE/APAP 5/325 MG TAB PO PRN ×2 (14:58→21:58)
--- NOTE | 2018-09-21 15:34 | P.PN ---
Subjective Date of Service: 09/21/18 Primary Care Provider: unknown Chief Complaint: Lung cancer Subjective: Improving Physical Examination - Vital Signs Temperature: 97.4 F Blood Pressure: 131/64 Pulse: 82 Respirations: 16 Pulse Ox (%): 93 - Physical Exam General: Alert, In no apparent distress, Oriented x3, Cooperative HEENT: Atraumatic Neck: Supple Respiratory: Clear to auscultation bilaterally, Normal air movement Cardiovascular: Normal pulses, Regular rate/rhythm Gastrointestinal: Normal bowel sounds, Soft and benign, Non-distended, No masses , No rebound, No guarding Musculoskeletal: No erythema, No tenderness, No warmth Integumentary: No erythema, No warmth, No cyanosis Neurological: Normal speech, Normal strength at 5/5 x4 extr, Normal tone - Studies Medications List Reviewed: Yes Assessment & Plan Discharge Plan: Other (Skilled facility) Plan to discharge in: 72 Hours Physician Review Additional Text: Impression: 5 cm left medial lung mass secondary to stage IV [id number] lung cancer with noted enlarged tia aortic and small bowel mesenteric adenopathy and large adrenal masses likely metastatic, status post lung biopsy with noted 10% left base pneumothorax Acute renal injury likely from diarrhea, nausea and vomiting Right-sided rib fracture 9 and status post fall Hypertension Diabetes mellitus type 2 Iron deficiency anemia Plan: 5 cm left medial lung mass secondary to stage IV [id number] lung cancer with noted enlarged tia aortic and small bowel mesenteric adenopathy and large adrenal masses likely metastatic, status post lung biopsy with noted 10% left base pneumothorax: Patient doing well today. Continue with physical therapy. Patient being assessed for skilled placement. X-ray shows improvement. Case discussed with pulmonology. Pulmonology recommends the patient have Oncology evaluate patient for possible plan of treatment and care. Will discuss with Oncology. Will wean off oxygen. Anticipate discharge to skilled placement on Monday Acute renal injury likely from diarrhea, nausea and vomiting: Continue to monitor closely. Renal function continues to improve. Case discussed with nephrology. C diff negative. Right-sided rib fracture 9 and status post fall: Encourage incentive spirometer and physical therapy. Medication for pain provided. Hypertension: Continue with medication. Overall stable. Will monitor and adjust appropriately Diabetes mellitus type 2: Continue with sliding scale. Iron deficiency anemia: Will monitor closely. Time Spent Managing Pts Care (In Minutes): 55
[2018-09-21 21:20] LABS: HBsAG Nonreactive (Nonreactive)
[2018-09-21] MEDS: ATORVASTATIN 20 MG TAB PO SCH (21:58)
[2018-09-22] MEDS: NA CHLORIDE 0.9% 1,000 ML IV SCH ×2 (01:00→04:07)
[2018-09-22 05:35] LABS: Absolute Lymphocytes (CBC) 1.4 K/uL (0.7-4.9); Absolute Monocytes 1.4 K/uL (0.1-1.3); Absolute Neutrophil 10.3 K/uL (1.8-8.0); Eosinophils % 3.3 % (0-4.4); Lymphocytes % 10.1 % (15.3-44.8); MPV 7.6 fL (7.6-11.3); Monocytes % 10.2 % (3.3-12.3); RBC Red Blood Cell Count 4.07 M/uL (4.33-5.43)
[2018-09-22 05:48] LABS: Albumin 2.1 g/dL (3.4-5.0); Magnesium 1.7 mg/dL (1.8-2.4); Phosphorus 2.8 mg/dL (2.5-4.9); Potassium 4.2 mmol/L (3.5-5.1)
[2018-09-22 06:56] LABS: Blood Morphology Comment NOT SEEN (NOT SEEN); Platelet Estimate INCR
[2018-09-22] MEDS ORDERED: MAGNESIUM SULFATE 1 gm IVPB 1 GM/100 ML BAG IV ONE (07:00)
[2018-09-22] MEDS: MORPHINE 4 MG/ML SYR IV PRN ×4 (07:12→20:53)
[2018-09-22] MEDS: ENOXAPARIN 30 MG/0.3 ML SQ SCH (09:04)
[2018-09-22] MEDS: FINASTERIDE 5 MG TAB PO SCH (09:05)
[2018-09-22] MEDS: LACTOBACILLUS/ACIDOPHILUS TAB PO SCH ×3 (09:06→21:00)
[2018-09-22] MEDS: NATEGLINIDE 60 MG TAB PO SCH ×2 (09:06→16:37)
[2018-09-22] MEDS: METOPROLOL XL 100 MG TAB PO SCH (09:06)
[2018-09-22] MEDS: AMLODIPINE 10 MG TAB PO SCH (09:07)
[2018-09-22] MEDS: ASCORBIC ACID 500 MG TABLET PO SCH (09:07)
[2018-09-22] MEDS: ASPIRIN EC 81 MG TAB PO SCH (09:08)
[2018-09-22] MEDS: INSULIN GLARGINE 100 UNITS/ML SQ SCH ×2 (09:08→21:55)
--- NOTE | 2018-09-22 12:49 | P.CNS ---
Date of Consult: 09/22/18 (Oncology) Reason for consultation: Metastatic Lung cancer HPI: 78 year old with extensive 60pk year smoking history admitted s/p fall with pain in the left lateral abdomeinal wall, found to be in acute on chronci renal failure secondary to poor oral intake, N/V/ diarrhea. Imaging work up incidentally revealed LLL lung mass, paraaortic LAD and adrenal lesions suspicious for mets. He underwent a CT guided TTB with confirmed NSCLC, likely adenocarcinoma (pending immunostains confirmation). When seen today, he seems to be comfortable, though still recuperating. He reports feeling fatigued lately with minimal cough with expectoration (no hemoptysis), wt loss of about 10 lbs in the past 2-3 months. He claims to be quite active for his age and taking care of his who has alzheimers dementia. HE denies any LUND, vision changes, gait imbalance. zdenies any bleeding from any site. ROS : a 14 point ROS was done and pertinent points as in HPI PMH: CAD s/p 2 PCI PVD- AAA (s/p aortic graft), PCI in the left leg HTN DM Arthritis COPD CKD HLD SCC of skin PSH: none FH: will discuss at depth next visit. SH: lives with Denies alcohol/ drug abuse Ex- [employer]. Allergies: Flu vaccine EXAM: Vitals stable Gen: Appears comfortable with minimal pain on the left lateral chest wall on movement, mild respiratory distress intermittently. HEENT: AT/NC, no pallor, no icterus, neck supple, no palpable LAD, oral mucoda moist RS B/l good air entry, poor effort due to pain CVS: S1S2 Abd: soft, mild distension+, BS+ Neuro; grossly normal Ext: no pedal edema Labs noted Imaging: noted 5.1cm LLL lung mass; 3.9 and 3.4cm adrenal masses; 2.7cm paraortic LAD PROBLEMS: 1, Lung cancer: NSCLC: likely metastatic. 2. Acute on CKD 3. Anemia 4. COPD, CAD, PVD, HTN, DM 5. Rib fractures Recommendations: 1. NSCLC: Natural history of Stage IV NSCLC, treatment options with chemotherapy and /or immunotherapy, prognosis discussed with patient, and his family. He understands that given metastatic disease, treatment will be aimed with a palliative intent to prolong survival, maintain quality of life and not for cure. His performance was apparently reasonable (ECOG 1) until this incident. PFS needs to be reassessed once he recuperates. At this time, he is barely able to move due to pain from the rib fractures. - PDL1 testing to be done. If immunostains favor adenocarcinoma, will check for EGFR, ALk and ROS mutations as well. - Imaging work up needs to be completed- MRI brain (with and without contrast if creatinine permissible) to r/o mets. PET scans +/- bone scan may be done as outpatient. - In the event, he is not a candidate for chemotherapy or immunotherapy due to poor PFS or poor tolerance, options with best supportive care was also discussed. 2. Rib fractures. Pain seems to be adequately controlled with current regimen. Need to r/o bone mets given rib fractures. 3. Anemia: Multifactorial- iron deficiency/ anemia of CKD/ underlying malignancy. Ferritin high likely as an acute phase reactant. Recommend PO iron supplements with supportive stool softeners for now. No evidence of occult GI bleed. GI work up not a priority at this time. 4. Acute on chronic kidney disease: Renal functions seem to be improving. Management as per Nephrology 5. COPD/ other medical issues: As per primary medical team. He is awaiting discharge to a local SNF. He should follow with me as outpatient on discharge within one week for reassessment and discussion.
--- NOTE | 2018-09-22 14:03 | P.PN ---
Subjective Date of Service: 09/22/18 Primary Care Provider: unknown Chief Complaint: Lung cancer Subjective: Improving Physical Examination - Vital Signs Temperature: 97.1 F Blood Pressure: 147/65 Pulse: 71 Respirations: 16 Pulse Ox (%): 97 - Physical Exam General: Alert, In no apparent distress, Oriented x3, Cooperative HEENT: Atraumatic Neck: Supple Respiratory: Clear to auscultation bilaterally, Normal air movement Cardiovascular: Normal pulses, Regular rate/rhythm Gastrointestinal: Normal bowel sounds, Soft and benign, Non-distended, No tenderness, No masses, No rebound, No guarding Musculoskeletal: No erythema, No tenderness, No warmth Integumentary: No tenderness/swelling, No erythema, No warmth, No cyanosis Neurological: Normal speech, Normal strength at 5/5 x4 extr, Normal tone, Normal affect Lymphatics: No axilla or inguinal lymphadenopathy - Studies Microbiology Data (last 24 hrs): 09/16/18 20:00 Blood - Blood Aerobic Blood Culture - Final No growth in 5 days. 09/16/18 20:00 Blood - Blood Anaerobic Blood Culture - Final No growth in 5 days. 09/16/18 19:45 Blood - Blood Aerobic Blood Culture - Final No growth in 5 days. 09/16/18 19:45 Blood - Blood Anaerobic Blood Culture - Final No growth in 5 days. Medications List Reviewed: Yes Assessment & Plan Discharge Plan: Other (jail facility) Plan to discharge in: 48 Hours Physician Review Additional Text: Impression: 5 cm left medial lung mass with pathology positive for non-small cell lung cancer with noted enlarged tia aortic and small bowel mesenteric adenopathy and large adrenal masses likely metastatic, status post lung biopsy with noted 10% left base pneumothorax Acute renal injury likely from diarrhea, nausea and vomiting Right-sided rib fracture 9th and 10th status post fall Hypertension Diabetes mellitus type 2 Iron deficiency anemia Plan: 5 cm left medial lung mass with pathology positive for non-small cell lung cancer with noted enlarged tia aortic and small bowel mesenteric adenopathy and large adrenal masses likely metastatic, status post lung biopsy with noted 10% left base pneumothorax: Patient doing well today. Pathology reviewed with patient yesterday. Pulmonology requested oncology consultation. Spoke with Oncology today. Patient may be a candidate for the min therapy versus chemotherapy. Await further pathology results. Oncology requesting brain MRI with contrast to assess for brain mets. Case discussed with nephrology. Patient can proceed with MRI with contrast. Continue with physical therapy. Patient being evaluated for skilled placement. Family is asking whether the patient would qualify for inpatient rehab. This can be further assess on Monday. Continue incentive spirometer. Will monitor closely. Will wean off oxygen. I will turn the service over to Dr. Milligan tomorrow. I will go over the plan of care with her. Acute renal injury likely from diarrhea, nausea and vomiting: This has significantly improved. Nephrology plans to discontinue IV fluids. Continue to monitor closely. Renal function continues to improve. C diff culture negative Right-sided rib fracture 9th and 10th status post fall: Encourage incentive spirometer and physical therapy. Medication for pain provided. Hypertension: Continue with medication. Overall stable. Will monitor and adjust appropriately Diabetes mellitus type 2: Continue with sliding scale. Iron deficiency anemia: Will monitor closely. Time Spent Managing Pts Care (In Minutes): 55
--- NOTE | 2018-09-22 14:14 | EKG ---
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
--- NOTE | 2018-09-22 16:40 | PN ---
Date of Progress Note: 09/22/2018 Subjective: The patient is doing better. No nausea. No vomiting. Physical Examination: Vital Signs: Blood pressure 147/65, pulse of 71. Chest: Clear to auscultation. Heart: S1, S2. Regular. Abdomen: Soft, nontender. Extremities: No edema. Current Medications: The patient is on include aspirin, promethazine, breathing treatment, Lovenox, amlodipine 10, metoprolol 200, atorvastatin, Zofran, insulin, Starlix, finasteride, morphine, hydroco done. Laboratory Data: WBC 13.7, H and H 10.7/33, platelet 476. Sodium 142, potassium 4.2, bicarb 25, BUN 29, creatinine 1.4, calcium 8.7, phosphorus 2.8, magnesium 1.7. Assessment And Plan: 1.Acute kidney injury secondary to prerenal, resolved. 2.Hypertension, controlled, optimal. Continue current medication. I am going to go ahead and disco ntinue IV fluid. 3.Lung mass, status post biopsy, complicated with a small pneumothorax. We will follow up with Pulm onary and Oncology. Okay from the renal standpoint to go ahead and do MRI with gadolinium contrast. 4.Hypomagnesemia. We will supplement. SAMANTHA/RADHA Voice ID: [id number] Report ID: [id number]
[2018-09-22] MEDS: PHENOL 1.4% ORAL SPRAY 180ML MM PRN (20:57)
[2018-09-22] MEDS: ATORVASTATIN 20 MG TAB PO SCH (20:59)
[2018-09-23] MEDS: HYDROCODONE/APAP 5/325 MG TAB PO PRN ×3 (05:03→22:14)
[2018-09-23] MEDS: PHENOL 1.4% ORAL SPRAY 180ML MM PRN ×2 (05:04→13:38)
[2018-09-23 07:04] LABS: Magnesium 1.9 mg/dL (1.8-2.4); Phosphorus 3.6 mg/dL (2.5-4.9); Potassium 3.8 mmol/L (3.5-5.1)
[2018-09-23] MEDS ORDERED: MAGNESIUM SULFATE 1 gm IVPB 1 GM/100 ML BAG IV ONE (07:49)
[2018-09-23] MEDS ORDERED: POTASSIUM CL SA 10 MEQ TAB PO ONE (07:49)
[2018-09-23] MEDS: ENOXAPARIN 30 MG/0.3 ML SQ SCH (08:48)
[2018-09-23] MEDS: ASPIRIN EC 81 MG TAB PO SCH (08:49)
[2018-09-23] MEDS: ASCORBIC ACID 500 MG TABLET PO SCH (08:50)
[2018-09-23] MEDS: FINASTERIDE 5 MG TAB PO SCH (08:50)
[2018-09-23] MEDS: LACTOBACILLUS/ACIDOPHILUS TAB PO SCH ×3 (08:51→22:13)
[2018-09-23] MEDS: AMLODIPINE 10 MG TAB PO SCH (08:51)
[2018-09-23] MEDS: METOPROLOL XL 100 MG TAB PO SCH (08:52)
[2018-09-23] MEDS: INSULIN GLARGINE 100 UNITS/ML SQ SCH ×2 (08:53→22:15)
[2018-09-23] MEDS: NATEGLINIDE 60 MG TAB PO SCH ×2 (09:00→16:15)
[2018-09-23] MEDS: MORPHINE 4 MG/ML SYR IV PRN ×2 (09:54→17:08)
[2018-09-23] MEDS: HYDRALAZINE HCL 25 MG TABLET PO SCH ×2 (13:18→22:14)
--- NOTE | 2018-09-23 13:56 | P.PN ---
Subjective Date of Service: 09/23/18 Primary Care Provider: unknown Chief Complaint: Lung cancer Patient seen and examined at bedside with RN. Chart reviewed. Case discussed with pulmonology , Oncology and neck cutter at this time. Patient has no complaints to offer overnight. Doing well overall. Currently it is awaiting MRI brain tomorrow morning. Pending placement at this time as well. This morning states that he has noticed that his mouth and tongue area has been getting red and has been noticing some white discharge on his tongue as well. Review of Systems 10-point ROS is otherwise unremarkable Physical Examination - Vital Signs Temperature: 97.4 F Blood Pressure: 176/79 Pulse: 75 Respirations: 20 Pulse Ox (%): 94 - Physical Exam General: Alert, Oriented x3, Mild distress HEENT: Atraumatic, PERRLA, Other (Oral thrush noted. 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 -status post lung biopsy with radiology. -pathology report consistent with non-small cell carcinoma of the lung -the oncology consulted. Appreciated recommendations at this time -most likely stage IV [id number] carcinoma of the lung -oncology planning for chemotherapy versus immunotherapy for palliative care. -leading MRI of the brain to rule out metastasis at this time Qualifiers: Laterality: left (2) Acute kidney injury Onset Date: 09/17/18 Current Visit: Yes Status: Acute Plan: Acute kidney injury improving now -nephrology consulted. Appreciated recommendations at this time -IV fluids NS at 75 mL an hr -improving at this time -okay per nephrology to get MRI with and without contrast for the brain. (3) Rib fracture Onset Date: 09/17/18 Current Visit: Yes Status: Acute Plan: Right-sided rib fracture 9th and 10th. Status post fall secondary to generalized weakness -incentive spirometer at this time -pain management as needed. Qualifiers: Encounter type: initial encounter Rib fracture type: multiple ribs Fracture type: closed Laterality: right Qualified Code(s): S22.41XA - Multiple fractures of ribs, right side, initial encounter for closed fracture (4) Fall Onset Date: 09/17/18 Current Visit: Yes Status: Acute Plan: Status post fall at the house 2 days ago secondary to generalized weakness -CT scan with rib fractures -physical therapy has been consult -fall precaution Qualifiers: Encounter type: initial encounter Qualified Code(s): W19.XXXA - Unspecified fall, initial encounter (5) Intractable nausea and vomiting Current Visit: Yes Status: Resolved Plan: Intractable nausea and vomiting at this time. 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 -Resolved now Qualifiers: Vomiting type: cyclical vomiting Qualified Code(s): G43.A1 - Cyclical vomiting, intractable (6) Diarrhea Current Visit: Yes Status: Resolved Plan: Diarrhea x2 days. Continues to have 3-4 episodes since admission here in the hospital. Most likely secondary to radiation -IV fluids at this time -resolve now Qualifiers: Diarrhea type: functional diarrhea Qualified Code(s): K59.1 - Functional diarrhea (7) Squamous cell carcinoma Current Visit: Yes Status: Acute Plan: Currently getting radiation therapy at the [facility]. (8) Hypertension Onset Date: 09/17/18 Current Visit: Yes Status: Chronic Qualifiers: Hypertension type: essential hypertension Qualified Code(s): I10 - Essential (primary) hypertension (9) Type 2 diabetes mellitus Onset Date: 09/17/18 Current Visit: Yes Status: Chronic Qualifiers: Diabetes mellitus wire bender hand insulin use: without shelter use Diabetes mellitus complication status: without complication Qualified Code(s): E11.9 - Type 2 diabetes mellitus without complications - Plan Pending clinical improvement at this time. Will follow up with MRI results tomorrow. Pending [facility] to a penitentiary versus inpatient rehab at this time Discharge Plan: Other Plan to discharge in: 72 Hours - Code Status/Comfort Care Code Status Assessed: Yes Critical Care: No
[2018-09-23] MEDS: MAGIC MOUTHWASH 180 ML BTL PO SCH ×2 (16:16→22:12)
--- NOTE | 2018-09-23 17:45 | PN ---
Date of Progress Note: 09/23/2018 NEPHROLOGY FOLLOWUP Subjective: The patient is more awake today. Physical Examination: Vital Signs: Blood pressure 176/79, pulse of 75. Chest: Clear to auscultation. Heart: S1, S2. Regular. Abdomen: Soft, nontender. Extremities: Trace edema. Laboratory Data: WBC 13.7, H and H 10.7/33, platelet 476. Sodium 142, potassium 3.8, bicarb 27, BUN 26, creatinine 1.5, GFR of 43, calcium 8.8, phosphorus 3.6, magnesium 1.9. Current Medications: The patient is on include breathing treatment, aspirin, Lovenox, atorvastatin, metoprolol 200, Tylenol. Zofran, Starlix, insulin, and Proscar. Assessment And Plan: 1.Acute kidney injury secondary to prerenal, recovered, resolved, back to baseline. 2.Hypertension, not controlled. I am going to go ahead and add hydralazine. 3.Lung mass, status post biopsy, complicated with pneumothorax. Follow up with the primary. 4.Deconditioning. Continue PT/OT. SAMANTHA/RADHA Voice ID: [id number] Report ID: [id number]
[2018-09-23] MEDS: ATORVASTATIN 20 MG TAB PO SCH (22:14)
[2018-09-24 05:13] LABS: Albumin 1.9 g/dL (3.4-5.0); Magnesium 1.8 mg/dL (1.8-2.4); Phosphorus 3.9 mg/dL (2.5-4.9); Potassium 4.2 mmol/L (3.5-5.1)
[2018-09-24] MEDS ORDERED: MAGNESIUM SULFATE 1 gm IVPB 1 GM/100 ML BAG IV ONE (06:00)
[2018-09-24] MEDS: ENOXAPARIN 30 MG/0.3 ML SQ SCH (08:46)
[2018-09-24] MEDS: INSULIN GLARGINE 100 UNITS/ML SQ SCH ×2 (08:47→20:33)
[2018-09-24] MEDS: FINASTERIDE 5 MG TAB PO SCH (08:48)
[2018-09-24] MEDS: LACTOBACILLUS/ACIDOPHILUS TAB PO SCH ×3 (08:48→20:32)
[2018-09-24] MEDS: ASPIRIN EC 81 MG TAB PO SCH (08:48)
[2018-09-24] MEDS: ASCORBIC ACID 500 MG TABLET PO SCH (08:48)
[2018-09-24] MEDS: HYDROCODONE/APAP 5/325 MG TAB PO PRN ×3 (08:49→23:45)
[2018-09-24] MEDS: NATEGLINIDE 60 MG TAB PO SCH ×2 (08:49→16:27)
[2018-09-24] MEDS: HYDRALAZINE HCL 25 MG TABLET PO SCH ×2 (08:49→20:32)
[2018-09-24] MEDS: AMLODIPINE 10 MG TAB PO SCH (08:50)
[2018-09-24] MEDS: METOPROLOL XL 100 MG TAB PO SCH (08:50)
[2018-09-24] MEDS: MAGIC MOUTHWASH 180 ML BTL PO SCH ×3 (08:51→20:33)
[2018-09-24] MEDS: MORPHINE 4 MG/ML SYR IV PRN (11:52)
--- NOTE | 2018-09-24 14:18 | P.PN ---
Subjective Date of Service: 09/24/18 Primary Care Provider: unknown Chief Complaint: Lung cancer Patient seen and examined at bedside with RN. Chart reviewed. 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 Patient has no complaints to offer overnight. Doing well overall. Not able to get MRI of the brain is not able to lay flat. Patient currently is pending placement. Denied inpatient rehab. Currently awaiting shelter facility approval. Review of Systems 10-point ROS is otherwise unremarkable Physical Examination - Vital Signs Temperature: 98.2 F Blood Pressure: 137/61 Pulse: 69 Respirations: 18 Pulse Ox (%): 95 - Physical Exam General: Alert, In no apparent distress HEENT: Atraumatic, PERRLA, EOMI Neck: Supple, JVD not distended Respiratory: Clear to auscultation bilaterally, Normal air movement Cardiovascular: Regular rate/rhythm, Normal S1 S2 Gastrointestinal: Normal bowel sounds, No tenderness Musculoskeletal: No tenderness Integumentary: No rashes Neurological: Normal speech, Normal tone, Normal affect Lymphatics: No axilla or inguinal lymphadenopathy - Studies Medications List Reviewed: Yes Assessment And Plan - Current Problems (Diagnosis) (1) Lung cancer Current Visit: Yes Status: Acute Plan: 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 -status post lung biopsy with radiology. -pathology report consistent with non-small cell carcinoma of the lung -the oncology consulted. Appreciated recommendations at this time -most likely stage IV [id number] carcinoma of the lung -oncology planning for chemotherapy versus immunotherapy for palliative care. -MRI not being able to performed at this time as patient not able to tolerate the procedure. Qualifiers: Laterality: left (2) Acute kidney injury Onset Date: 09/17/18 Current Visit: Yes Status: Acute Plan: Acute kidney injury improving now -nephrology consulted. Appreciated recommendations at this time -IV fluids NS at 75 mL an hr -improving at this time (3) Rib fracture Onset Date: 09/17/18 Current Visit: Yes Status: Acute Plan: Right-sided rib fracture 9th and 10th. Status post fall secondary to generalized weakness -incentive spirometer at this time -pain management as needed. Qualifiers: Encounter type: initial encounter Rib fracture type: multiple ribs Fracture type: closed Laterality: right Qualified Code(s): S22.41XA - Multiple fractures of ribs, right side, initial encounter for closed fracture (4) Fall Onset Date: 09/17/18 Current Visit: Yes Status: Acute Plan: Status post fall at the house 2 days ago secondary to generalized weakness -CT scan with rib fractures -physical therapy has been consult -fall precaution Qualifiers: Encounter type: initial encounter Qualified Code(s): W19.XXXA - Unspecified fall, initial encounter (5) Intractable nausea and vomiting Current Visit: Yes Status: Resolved Plan: Intractable nausea and vomiting at this time. 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 -Resolved now Qualifiers: Vomiting type: cyclical vomiting Qualified Code(s): G43.A1 - Cyclical vomiting, intractable (6) Diarrhea Current Visit: Yes Status: Resolved Plan: Diarrhea x2 days. Continues to have 3-4 episodes since admission here in the hospital. Most likely secondary to radiation -IV fluids at this time -resolve now Qualifiers: Diarrhea type: functional diarrhea Qualified Code(s): K59.1 - Functional diarrhea (7) Squamous cell carcinoma Current Visit: Yes Status: Acute Plan: Currently getting radiation therapy at the [facility]. (8) Hypertension Onset Date: 09/17/18 Current Visit: Yes Status: Chronic Qualifiers: Hypertension type: essential hypertension Qualified Code(s): I10 - Essential (primary) hypertension (9) Type 2 diabetes mellitus Onset Date: 09/17/18 Current Visit: Yes Status: Chronic Qualifiers: Diabetes mellitus long chain beamer insulin use: without long chain beamer use Diabetes mellitus complication status: without complication Qualified Code(s): E11.9 - Type 2 diabetes mellitus without complications - Plan Currently pending placement at this time. Will follow up with case management regarding shelter facility. Patient unable to get MRI at this time. Will be able to get it done outpatient along with the PET scan will update heme oncology regarding the plan. Discharge Plan: [facility] Plan to discharge in: 48 Hours - Code Status/Comfort Care Code Status Assessed: Yes Critical Care: No
[2018-09-24 18:52] LABS: P-ANCA Anti-Myeloperoxidase Ab <1.0 AI (<1.0)
[2018-09-24] MEDS: ATORVASTATIN 20 MG TAB PO SCH (20:32)
--- NOTE | 2018-09-25 03:05 | PN ---
Date of Progress Note: 09/24/2018 Chief Complaint: Acute kidney injury, severe, secondary to prerenal azotemia. Renal function has improved with IV fluids. Review of Systems: Denies fever, chills. The patient is feeling better. Physical Examination: Lungs: Clear to auscultation bilaterally. Heart: S1, S2. Abdomen: Soft, benign. Extremities: Edema in both legs, mild. VITAL SIGNS: Blood pressure 166/79, heart rate 75. Laboratory Data: Sodium 142, potassium 3.8, bicarbonate 27, BUN 26, creatinine 1.5, calcium 8.8. Impression And Plan: 1.Acute kidney injury secondary to prerenal azotemia. Continue IV fluids as needed. The patient is on p.o. intake. Monitor fluid balance. 2.Hypertension, uncontrolled. The patient was started on hydralazine. Monitor blood pressure. 3.Lung mass status post biopsy complicated by a pneumothorax. Follow up with Pulmonary and primary team. LAZARO/RADHA Voice ID: [id number] Report ID: [id number]
[2018-09-25 06:16] LABS: Magnesium 2.1 mg/dL (1.8-2.4); Potassium 4.6 mmol/L (3.5-5.1)
[2018-09-25] MEDS: INSULIN GLARGINE 100 UNITS/ML SQ SCH (09:15)
[2018-09-25] MEDS: ENOXAPARIN 30 MG/0.3 ML SQ SCH (09:16)
[2018-09-25] MEDS: ASCORBIC ACID 500 MG TABLET PO SCH (09:16)
[2018-09-25] MEDS: LACTOBACILLUS/ACIDOPHILUS TAB PO SCH (09:17)
[2018-09-25] MEDS: NATEGLINIDE 60 MG TAB PO SCH (09:17)
[2018-09-25] MEDS: ASPIRIN EC 81 MG TAB PO SCH (09:17)
[2018-09-25] MEDS: AMLODIPINE 10 MG TAB PO SCH (09:17)
[2018-09-25] MEDS: FINASTERIDE 5 MG TAB PO SCH (09:17)
[2018-09-25] MEDS: METOPROLOL XL 100 MG TAB PO SCH (09:18)
[2018-09-25] MEDS: HYDRALAZINE HCL 25 MG TABLET PO SCH (09:18)
[2018-09-25] MEDS: MAGIC MOUTHWASH 180 ML BTL PO SCH (09:19)
--- NOTE | 2018-09-25 12:26 | P.PN ---
Subjective Date of Service: 09/25/18 Primary Care Provider: unknown Chief Complaint: Lung cancer Subjective: No new changes cr stable plan to dc to LTAC consider to add hydaralazine iof Bp still elevated cleared for discharge from nephrology point of view Physical Examination - Vital Signs Temperature: 97.5 F Blood Pressure: 134/60 Pulse: 69 Respirations: 16 Pulse Ox (%): 94 - Physical Exam General: Oriented x3, Other (feeling weak ) HEENT: Atraumatic Neck: Supple, Without JVD or thyroid abnormality Respiratory: Clear to auscultation bilaterally, Normal air movement Cardiovascular: No edema, Regular rate/rhythm, Normal S1 S2 Gastrointestinal: Normal bowel sounds, Soft and benign, Non-distended - Studies Medications List Reviewed: Yes Assessment And Plan - Current Problems (Diagnosis) (1) Acute kidney injury Onset Date: 09/17/18 Current Visit: Yes Status: Acute - Plan Acute kidney injury secondary to prerenal, Cr stable now HTN still elevated consider to add hydralazine oif BP still elevated non small cell Lung mass Mgm as per pulmonary and oncology
--- NOTE | 2018-09-25 13:20 | P.DS ---
Admission Date: 09/16/18 Discharge Date: 09/25/18 Primary Care Provider: unknown Disposition: ROUTINE DISCHARGE Discharge Condition: GOOD Reason for Admission: Lung cancer Consultations: Pulmonology Oncology Radiology for Biopsy - Problems (1) Lung cancer Current Visit: Yes Status: Acute Qualifiers: Laterality: left (2) Acute kidney injury Onset Date: 09/17/18 Current Visit: Yes Status: Acute (3) Rib fracture Onset Date: 09/17/18 Current Visit: Yes Status: Acute Qualifiers: Encounter type: initial encounter Rib fracture type: multiple ribs Fracture type: closed Laterality: right Qualified Code(s): S22.41XA - Multiple fractures of ribs, right side, initial encounter for closed fracture (4) Fall Onset Date: 09/17/18 Current Visit: Yes Status: Acute Qualifiers: Encounter type: initial encounter Qualified Code(s): W19.XXXA - Unspecified fall, initial encounter (5) Intractable nausea and vomiting Current Visit: Yes Status: Resolved Qualifiers: Vomiting type: cyclical vomiting Qualified Code(s): G43.A1 - Cyclical vomiting, intractable (6) Diarrhea Current Visit: Yes Status: Resolved Qualifiers: Diarrhea type: functional diarrhea Qualified Code(s): K59.1 - Functional diarrhea (7) Squamous cell carcinoma Current Visit: Yes Status: Acute (8) Hypertension Onset Date: 09/17/18 Current Visit: Yes Status: Chronic Qualifiers: Hypertension type: essential hypertension Qualified Code(s): I10 - Essential (primary) hypertension (9) Type 2 diabetes mellitus Onset Date: 09/17/18 Current Visit: Yes Status: Chronic Qualifiers: Diabetes mellitus long-term insulin use: without emt intermediate use Diabetes mellitus complication status: without complication Qualified Code(s): E11.9 - Type 2 diabetes mellitus without complications Brief History of Present Illness: Patient is a 78-year-old gentleman who came into the hospital after falling. He put his arm out to break his fall, and he states that his elbow hit the left side is rib. He apparently is suffered rib fractures. Patient also had a CT scan performed which revealed a lung mass with lymph nodes around the aorta as well as adrenal metastasis. Patient is admitted to the hospital for further workup. Will get a pulmonary consultation. Will also get a dedicated rib x- ray. Patient also had labs which revealed acute on chronic kidney disease. Will start hydrating the patient as well. Will monitor his labs closely. Patient will be admitted to the hospital for further workup. Hospital Course: Overall during the hospital stay patient remained stable Patient was initially admitted to the hospital for multiple falls sustaining rib fractures. Chest CT was done which was consistent with a lung mass with metastasis to the adrenal glands along with periaortic nodes. Pulmonology was consulted at that time given the history of smoking for over 20 years malignancy was high on differential. Pulmonology recommended the patient get a biopsy with radiology under CT-guided. Cardiology was consulted who performed a CT-guided biopsy of the lung mass which was sent to pathology and was positive for non-small cell carcinoma of the lung stage IV given the metastasis. Oncology was consulted at that time who saw the patient here in the hospital and recommended the patient get chemotherapy and immunotherapy after he is able to tolerate the procedure for palliative measures due to poor prognosis in advanced stage. Oncology recommended the patient get an MRI of the brain to evaluate for any further mets to the brain however patient was unable to lie flat and MRI of the brain was not completed. At that time a decision was made that patient can have his MRI of the brain along with a PET scan done as outpatient. Patient had physical therapy consulted for his multiple falls at the house. Initially the recommendation was patient to go up to inpatient rehab however patient did well overall while here in the hospital and inpatient rehab was denied inpatient thus was transferred to a group home facility for PT therapy. After which patient was asked to follow up with oncology and pulmonology to start palliative treatment for his stage IV lung cancer. While here in the hospital patient also had acute kidney injury most likely secondary to dehydration. IV fluids were started. Patient did well overall and his creatinine did improve while here in the hospital. Patient then was able to ambulate and have a oral diet and thus was discharged to a group home facility for further rehab. Vital Signs/Physical Exam: Temp Pulse Resp BP Pulse Ox 97.5 F 69 16 134/60 94 09/25/18 12:26 09/25/18 12:26 09/25/18 12:26 09/25/18 12:09/25/18 12:26 General: Alert, In no apparent distress HEENT: Atraumatic, PERRLA, EOMI Neck: Supple, JVD not distended Respiratory: Clear to auscultation bilaterally, Normal air movement Cardiovascular: Regular rate/rhythm, Normal S1 S2 Gastrointestinal: Normal bowel sounds, No tenderness Musculoskeletal: No tenderness Integumentary: No rashes Neurological: Normal speech, Normal tone, Normal affect Lymphatics: No axilla or inguinal lymphadenopathy Laboratory Data at Discharge: WBC 13.7 K/uL (4.3-10.9) H 09/22/18 04:51 Hgb 10.7 g/dL (13.6-17.9) L 09/22/18 04:51 Hct 33.0 % (39.6-49.0) L 09/22/18 04:51 Plt Count 476 K/uL (152-406) H 09/22/18 04:51 PT 15.4 SECONDS (9.5-12.5) H 09/19/18 05:50 INR 1.30 09/19/18 05:50 APTT 36.4 SECONDS (24.3-36.9) 09/17/18 03:31 Sodium 140 mmol/L (136-145) 09/25/18 05:21 Potassium 4.6 mmol/L (3.5-5.1) 09/25/18 05:21 BUN 23 mg/dL (7-18) H 09/25/18 05:21 Creatinine 1.61 mg/dL (0.55-1.3) H 09/25/18 05:21 Glucose 68 mg/dL (74-106) L 09/25/18 05:21 Uric Acid 7.6 mg/dL (3.5-7.2) H 09/19/18 05:50 Phosphorus 3.9 mg/dL (2.5-4.9) 09/24/18 04:03 Magnesium 2.1 mg/dL (1.8-2.4) 09/25/18 05:21 Total Bilirubin 0.4 mg/dL (0.2-1.0) 09/17/18 03:31 AST 16 U/L (15-37) 09/17/18 03:31 ALT 17 U/L (12-78) 09/17/18 03:31 Alkaline Phosphatase 79 U/L (45-117) 09/17/18 03:31 Troponin I < 0.02 ng/mL (0.0-0.045) 09/17/18 13:40 Lipase 175 U/L (73-393) 09/16/18 18:15 Home Medications: Amlodipine [Norvasc*] 10 mg PO DAILY 09/17/18 Ascorbic Acid [Vitamin C] 500 mg PO DAILY 09/17/18 Aspirin [Aspirin EC 81 MG] 81 mg PO DAILY 09/17/18 Cholecalciferol (Vitamin D3) [D3-50] 10,000 unit PO DAILY 09/17/18 Ezetimibe [Zetia*] 10 mg PO DAILY 09/17/18 Finasteride [Proscar*] 5 mg PO DAILY 09/17/18 Insulin Glargine,Hum.rec.anlog [Lantus Solostar] 40 units SQ BID 09/17/18 Krill/Om-3/Dha/Epa/Phospho/Ast [Krill Oil 500 mg Softgel] 500 mg PO DAILY Metoprolol Succinate [Toprol Xl] 200 mg PO DAILY 09/17/18 Montelukast [Singulair*] 10 mg PO DAILY 09/17/18 Multivit-Min/FA/Lycopen/Lutein [Centrum Silver Tablet] 1 tab PO DAILY 09/17/18 Nateglinide [Starlix] 120 mg PO BID 09/17/18 Simvastatin [Zocor] 40 mg PO BEDTIME 09/17/18 Tamsulosin [Flomax*] 0.4 mg PO BEDTIME 09/17/18 Diet: Regular Activity: Ad berry Followup: Tonny Rojas MD [ACTIVE - CAN ADMIT] - Chikis Evans MD [COURTESY - CAN ADMIT] - Rhona Walker MD [ACTIVE - CAN ADMIT] -
== END 2018-09-25 14:05 | DRG 183 ==
LOC: ER 17:50 → ERHOLD 21:58 → 2ND 22:31
PROVIDERS: ADMIT Hospitalist; ATTEND Family Medicine
PROC: 0BBJ3ZX Excision of Left Lower Lung Lobe, Percutaneous Approach, Diagnostic (ICD-10-PCS; principal; 2018-09-19)
DX: S22.41XA Multiple fractures of ribs, right side, initial encounter for closed fracture (principal); N17.0 Acute kidney failure with tubular necrosis; N17.9 Acute kidney failure, unspecified; J93.9 Pneumothorax, unspecified; C34.32 Malignant neoplasm of lower lobe, left bronchus or lung; C79.72 Secondary malignant neoplasm of left adrenal gland; C79.89 Secondary malignant neoplasm of other specified sites; W18.09XA Striking against other object with subsequent fall, initial encounter; Y93.89 Activity, other specified; Y92.019 Unspecified place in single-family (private) house as the place of occurrence of the external cause; Z88.7 Allergy status to serum and vaccine; E78.5 Hyperlipidemia, unspecified; I25.2 Old myocardial infarction; Z85.89 Personal history of malignant neoplasm of other organs and systems; Z79.4 Long term (current) use of insulin; G43.A1 Cyclical vomiting, in migraine, intractable; R19.7 Diarrhea, unspecified; F17.210 Nicotine dependence, cigarettes, uncomplicated; E86.1 Hypovolemia; I13.10 Hypertensive heart and chronic kidney disease without heart failure, with stage 1 through stage 4 chronic kidney disease, or unspecified chronic kidney disease; E11.22 Type 2 diabetes mellitus with diabetic chronic kidney disease; N18.3 Chronic kidney disease, stage 3 (moderate); I25.10 Atherosclerotic heart disease of native coronary artery without angina pectoris; E86.0 Dehydration; D50.9 Iron deficiency anemia, unspecified; R59.0 Localized enlarged lymph nodes; E11.51 Type 2 diabetes mellitus with diabetic peripheral angiopathy without gangrene; Z95.5 Presence of coronary angioplasty implant and graft; Z95.820 Peripheral vascular angioplasty status with implants and grafts; D63.1 Anemia in chronic kidney disease; Z91.81 History of falling
CPT/HCPCS: 32405; 36415; 51702; 71045; 71046; 71250; 74018; 74150; 74176; 76604; 76770; 77012; 80048; 80053; 80069; 80076; 81003; 81015; 82550; 82570; 82607; 82728; 82746; 82962; 83540; 83690; 83735; 83880; 83970; 84100; 84156; 84165; 84466; 84484; 84550; 85025; 85044; 85610; 85730; 86021; 86317; 86704; 86706; 86850; 86900; 86901; 87040; 87086; 87088; 87340; 87493; 87522; 88305; 88333; 93005; 93306; 94640; 96361; 96365; 96366; 96374; 96375; 97116; 97163; 97530; 99285; J1650; J2250; J2405; J2543; J2550; J3010; J3475; J7030

== ENCOUNTER 2018-09-29 11:59 | Emergency (ER) | payer OTHER ==
[2018-09-29] MEDS ORDERED: HYDROCODONE/APAP 10/325 TAB ONE (13:20)
[2018-09-29] MEDS ORDERED: MORPHINE 4 MG/ML SYR ONE (14:57)
--- NOTE | 2018-09-29 15:51 | ER ---
Nurse's Notes [facility] Name: Frantz Luo Age: 78 yrs Sex: Male : 1940 Arrival Date: 09/29/2018 Time: 12:01 Bed 20 Private MD: Diagnosis: Lumbago with sciatica, left side Presentation: 09/29 12:09 Presenting complaint: Patient states: I have had to have surgery for my back in the la1 past and this morning I began having a real bad sciatic pain down my left leg. Transition of care: patient was not received from another setting of care. Onset of symptoms was September 29, 2018. Risk Assessment: Do you want to hurt yourself or someone else? Patient reports no desire to harm self or others. Initial Sepsis Screen: Does the patient meet any 2 criteria? No. Patient's initial sepsis screen is negative. Does the patient have a suspected source of infection? No. Patient's initial sepsis screen is negative. Care prior to arrival: None. 12:09 Method Of Arrival: Wheelchair la1 12:09 Acuity: WIL 3 la1 Historical: - Allergies: 12:11 FLU VACCINE; la1 - PMHx: 12:11 cancer, scalp; CKD; Diabetes - IDDM; Hyperlipidemia; Hypertension; kidney failure; la1 Myocardial infarction; - PSHx: 12:11 heart stents; discectomy; AAA repair; Cholecystectomy; la1 - Immunization history:: Adult Immunizations up to date. - Social history:: Smoking status: Patient uses tobacco products, smokes one-half pack cigarettes per day. - Ebola Screening: : No symptoms or risks identified at this time. Screenin:00 Abuse screen: Denies threats or abuse. Nutritional screening: No deficits noted. em Tuberculosis screening: No symptoms or risk factors identified. Fall Risk None identified. Assessment: 13:00 General: Appears in no apparent distress. uncomfortable, Behavior is cooperative, em anxious, Denies fever. Pain: Complains of pain in left gluteus elo Pain radiates to left leg Quality of pain is described as radiating, sharp. Neuro: Level of Consciousness is awake, alert, obeys commands, Oriented to person, place, time, situation. Cardiovascular: Rhythm is regular. Respiratory: Airway is patent Respiratory effort is even, unlabored, Respiratory pattern is regular, symmetrical. GI: Abdomen is flat. Derm: Skin is intact, is thin, Skin is pink, warm \T\ dry. Musculoskeletal: Range of motion: intact in all extremities. 13:00 Reassessment: I agree with assessment completed by Kendall Almanza LVN. aa5 14:20 Reassessment: Patient appears in no apparent distress at this time. placed on 2 L via em NC SPO2 95%. 15:19 Reassessment: Patient and/or family updated on plan of care and expected duration. Pain em level reassessed. Patient is alert, oriented x 3, equal unlabored respirations, skin warm/dry/pink. reports medication is improved rates pain 4/10 Patient states feeling better. 16:01 Reassessment: Patient appears in no apparent distress at this time. Patient and/or em family updated on plan of care and expected duration. Pain level reassessed. Patient is alert, oriented x 3, equal unlabored respirations, skin warm/dry/pink. rates pain 2/10 Patient states feeling better. Vital Signs: 12:11 BP 129 / 60; Pulse 68; Resp 18; Temp 97.8; Pulse Ox 98% on R/A; Weight 86.18 kg; Height la1 5 ft. 10 in. (177.80 cm); 14:10 BP 128 / 52; Pulse 65; Resp 16; Pulse Ox 92% on R/A; Pain 8/10; em 14:20 Pulse Ox 95% on 2 lpm NC; em 15:54 BP 129 / 49; Pulse 60; Resp 14; Pulse Ox 96% on R/A; Pain 2/10; em 12:11 Body Mass Index 27.26 (86.18 kg, 177.80 cm) la1 ED Course: 12:01 Patient arrived in ED. mr 12:10 Triage completed. la1 12:11 Arm band placed on right wrist. la1 12:24 Reinier Taylor NP is PHCP. pm1 12:24 Philippe Conti MD is Attending Physician. pm1 12:34 Kendall Almanza LVN is Primary Nurse. em 13:00 Patient has correct armband on for positive identification. Bed in low position. Call em light in reach. Side rails up X2. Adult w/ patient. Pulse ox on. NIBP on. 16:29 No provider procedures requiring assistance completed. Patient did not have IV access em during this emergency room visit. Administered Medications: 13:18 Drug: [place] 10 mg-325 mg 1 tabs Route: PO; em 14:16 Follow up: Response: No adverse reaction; Pain is unchanged, physician notified em 14:52 Drug: morphine 4 mg Route: IM; Site: left deltoid; em 15:33 Follow up: Response: No adverse reaction; Pain is decreased em Outcome: 15:50 Discharge ordered by MD. pm1 16:29 Discharged to home via wheelchair. em 16:29 Condition: good 16:29 Discharge instructions given to patient, Instructed on discharge instructions, follow up and referral plans. Demonstrated understanding of instructions, follow-up care. 16:30 Patient left the ED. em Signatures: Patricia Bernabe Edgar, ENFORCEMENT MANAGER ENFORCEMENT MANAGER Kiki Armenta, RN RN aa5 Rm Chaudhry RN RN la1 Reinier Taylor, GAS LEAK TESTER GAS LEAK TESTER pm1
--- NOTE | 2018-09-29 15:51 | EDPHYS ---
Physician Documentation [facility] Name: Frantz Luo Age: 78 yrs Sex: Male : 1940 Arrival Date: 09/29/2018 Time: 12:01 Bed 20 Private MD: Philippe Turcios HPI: 09/29 13:00 This 78 yrs old Male presents to ER via Wheelchair with complaints of Left pm1 Leg Pain. 13:00 The patient presents with pain that is acute, with no known mechanism of injury. The pm1 symptoms are located in the low back. Onset: The symptoms/episode began/occurred 2 day(s) ago, and became worse this morning. The pain radiates to the left leg. Associated signs and symptoms: Pertinent negatives: dysuria, fever, incontinence, numbness, tingling. The problem was sustained from a chronic condition, the patient has known disc disease, the patient has had previous back surgery. Modifying factors: The patient symptoms are alleviated by morphine in the past, the patient symptoms are aggravated by movement. Severity of symptoms: in the emergency department the symptoms are actually worse. The patient has experienced similar episodes in the past, and the symptoms today are exactly the same, to previous sciatica as a result of disk disease to L5-S1. Patient at group home and was treated with tramadol and Tylenol #3 for his sciatic pain. Pending Tylenol #4 to arrive to group home. Patient with a history of disk disease to L5-S1. Had surgery by Dr. Bell. Patient reports back pain stable until fall injury a few weeks ago. pain responded well to morphine while hospitalized . Historical: - Allergies: 12:11 FLU VACCINE; la1 - PMHx: 12:11 cancer, scalp; CKD; Diabetes - IDDM; Hyperlipidemia; Hypertension; kidney failure; la1 Myocardial infarction; - PSHx: 12:11 heart stents; discectomy; AAA repair; Cholecystectomy; la1 - Immunization history:: Adult Immunizations up to date. - Social history:: Smoking status: Patient uses tobacco products, smokes one-half pack cigarettes per day. - Ebola Screening: : No symptoms or risks identified at this time. ROS: 13:00 Constitutional: Negative for fever, chills, and weight loss, Eyes: Negative for injury, pm1 pain, redness, and discharge, ENT: Negative for injury, pain, and discharge, Neck: Negative for injury, pain, and swelling, Cardiovascular: Negative for chest pain, palpitations, and edema, Respiratory: Negative for shortness of breath, cough, wheezing, and pleuritic chest pain, Abdomen/GI: Negative for abdominal pain, nausea, vomiting, diarrhea, and constipation. 13:00 : Negative for injury, bleeding, discharge, and swelling, MS/Extremity: Negative for injury and deformity, Skin: Negative for injury, rash, and discoloration, Neuro: Negative for headache, weakness, numbness, tingling, and seizure. 13:00 Back: Positive for of the low back area, Negative for injury or acute deformity. Exam: 13:00 Constitutional: This is a well developed, well nourished patient who is awake, alert, pm1 and in no acute distress. Head/Face: Normocephalic, atraumatic. Eyes: Pupils equal round and reactive to light, extra-ocular motions intact. Lids and lashes normal. Conjunctiva and sclera are non-icteric and not injected. Cornea within normal limits. Periorbital areas with no swelling, redness, or edema. ENT: Nares patent. No nasal discharge, no septal abnormalities noted. Tympanic membranes are normal and external auditory canals are clear. Oropharynx with no redness, swelling, or masses, exudates, or evidence of obstruction, uvula midline. Mucous membranes moist. Neck: Trachea midline, no thyromegaly or masses palpated, and no cervical lymphadenopathy. Supple, full range of motion without nuchal rigidity, or vertebral point tenderness. No Meningismus. Chest/axilla: Normal chest wall appearance and motion. Nontender with no deformity. No lesions are appreciated. Cardiovascular: Regular rate and rhythm with a normal S1 and S2. No gallops, murmurs, or rubs. Normal PMI, no JVD. No pulse deficits. Respiratory: Lungs have equal breath sounds bilaterally, clear to auscultation and percussion. No rales, rhonchi or wheezes noted. No increased work of breathing, no retractions or nasal flaring. Abdomen/GI: Soft, non-tender, with normal bowel sounds. No distension or tympany. No guarding or rebound. No evidence of tenderness throughout. 13:00 Skin: Warm, dry with normal turgor. Normal color with no rashes, no lesions, and no evidence of cellulitis. MS/ Extremity: Pulses equal, no cyanosis. Neurovascular intact. Full, normal range of motion. 13:00 Back: pain, that is mild, of the lumbar area and left low back. 13:00 Neuro: Orientation: is normal, Memory: is normal, appropriate for stated age, Motor: is normal. Vital Signs: 12:11 BP 129 / 60; Pulse 68; Resp 18; Temp 97.8; Pulse Ox 98% on R/A; Weight 86.18 kg; Height la1 5 ft. 10 in. (177.80 cm); 14:10 BP 128 / 52; Pulse 65; Resp 16; Pulse Ox 92% on R/A; Pain 8/10; em 14:20 Pulse Ox 95% on 2 lpm NC; em 15:54 BP 129 / 49; Pulse 60; Resp 14; Pulse Ox 96% on R/A; Pain 2/10; em 12:11 Body Mass Index 27.26 (86.18 kg, 177.80 cm) la1 MDM: 12:28 Patient medically screened. александр 12:47 Data reviewed: vital signs. Data interpreted: Pulse oximetry: on room air is 98 %. pm1 Interpretation: normal. 15:23 Counseling: I had a detailed discussion with the patient and/or guardian regarding: the pm1 historical points, exam findings, and any diagnostic results supporting the discharge/admit diagnosis, the need for outpatient follow up, for definitive care, a neurosurgeon, a painting technician. 15:23 ED course: Pain 2/10 after morphine given. pm1 Administered Medications: 13:18 Drug: [place] 10 mg-325 mg 1 tabs Route: PO; em 14:16 Follow up: Response: No adverse reaction; Pain is unchanged, physician notified em 14:52 Drug: morphine 4 mg Route: IM; Site: left deltoid; em 15:33 Follow up: Response: No adverse reaction; Pain is decreased em Disposition: 09/29/18 15:50 Discharged to Home. Impression: Lumbago with sciatica, left side. - Condition is Stable. - Discharge Instructions: Back Pain, Adult, Sciatica. - Medication Reconciliation Form, Thank You Letter, Prescription Opioid Use form. - Follow up: Emergency Department; When: As needed; Reason: Worsening of condition. Follow up: Private Physician; When: 2 - 3 days; Reason: Recheck today's complaints, Continuance of care, Re-evaluation by your physician. - Problem is new. - Symptoms have improved. Addendum: 10/01/2018 07:42 Co-signature as Attending Physician, Philippe Conti MD I agree with the assessment and c viramontes plan of care. Signatures: Philippe Conti, MD MD александр Almanza, Kendall, SHINGLE CATCHER SHINGLE CATCHER em Rm Chaudhry, RN RN la1 Reinier Taylor, ICE CREAM MAKER ICE CREAM MAKER pm1 Corrections: (The following items were deleted from the chart) 09/29 15:51 15:50 09/29/2018 15:50 Discharged to Home. Impression: Sciatica, left side. Condition pm1 is Stable. Forms are Medication Reconciliation Form, Thank You Letter, Antibiotic Education, Prescription Opioid Use. Follow up: Emergency Department; When: As needed; Reason: Worsening of condition. Follow up: Private Physician; When: 2 - 3 days; Reason: Recheck today's complaints, Continuance of care, Re-evaluation by your physician. Problem is new. Symptoms have improved. pm1 16:30 15:51 09/29/2018 15:50 Discharged to Home. Impression: Lumbago with sciatica, left em side. Condition is Stable. Forms are Medication Reconciliation Form, Thank You Letter, Antibiotic Education, Prescription Opioid Use. Follow up: Emergency Department; When: As needed; Reason: Worsening of condition. Follow up: Private Physician; When: 2 - 3 days; Reason: Recheck today's complaints, Continuance of care, Re-evaluation by your physician. Problem is new. Symptoms have improved. pm1
== END 2018-09-29 16:30 | disposition home or self-care (01) ==
LOC: ER 11:59
DX: M54.42 Lumbago with sciatica, left side (principal); Z88.7 Allergy status to serum and vaccine
CPT/HCPCS: 96372; 99283

== ENCOUNTER 2018-09-29 18:32 | Emergency (ER) | payer OTHER ==
[2018-09-29] MEDS ORDERED: HYDROCODONE/APAP 7.5/325 MG TAB ONE (19:59)
[2018-09-29 20:17] LABS: Absolute Lymphocytes (CBC) 1.8 K/uL (0.7-4.9); Absolute Monocytes 1.7 K/uL (0.1-1.3); Absolute Neutrophil 15.2 K/uL (1.8-8.0); Basophils % 0.9 % (0-1.3); Hematocrit 31.1 % (39.6-49.0); Lymphocytes % 9.5 % (15.3-44.8); MPV 7.5 fL (7.6-11.3); Monocytes % 8.9 % (3.3-12.3); RBC Red Blood Cell Count 3.91 M/uL (4.33-5.43)
[2018-09-29 20:35] LABS: Albumin 2.4 g/dL (3.4-5.0); Bilirubin Total 0.2 mg/dL (0.2-1.0); Potassium 4.9 mmol/L (3.5-5.1); Protein, Total 6.9 g/dL (6.4-8.2)
[2018-09-29 20:41] LABS: Blood Morphology Comment NOT SEEN (NOT SEEN); Platelet Estimate ADEQ
--- NOTE | 2018-09-29 21:37 | RAD REPORT ---
EXAM DESCRIPTION: CT - Abdomen Pelvis Wo Contrast - 09/29/2018 9:00 pm CLINICAL HISTORY: Abdominal pain COMPARISON: September 16, 2018 TECHNIQUE: Computed axial tomography of the abdomen and pelvis was obtained. Oral contrast was reque sted. IV contrast was not administered secondary to an elevated creatinine. All CT scans are performed using dose optimization technique as appropriate and may include automated exposure control or mA/KV adjustment according to patient size. FINDINGS: The evaluation of solid organs, vessels and bowel is limited secondary to the lack of con trast administration. Mildly displaced fractures involve 2 lower posterior left ribs. A small left pleural effusion is pres ent. A a 5 centimeter left lower lobe mass is again demonstrated. A 2 millimeter nonobstructing left renal calculus. Right kidney appears grossly normal. Liver, spleen and pancreas appear grossly normal. Bilateral adrenal masses, abdominal retroperitoneal lymphadenopathy is unchanged. Diverticula stem from the ascending colon. Mild stranding is present within the adjacent fat. An aorto bi-iliac stent is in place. 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
[2018-09-29] MEDS ORDERED: DEXAMETHASONE 10 MG/ML VIAL ONE (21:57)
[2018-09-29] MEDS ORDERED: GABAPENTIN 300 MG CAP ONE (21:57)
[2018-09-29] MEDS ORDERED: KETOROLAC 30 MG/ML INJ ONE (21:58)
--- NOTE | 2018-09-29 22:30 | EDPHYS ---
Physician Documentation [facility] Name: Frantz Luo Age: 78 yrs Sex: Male : 1940 Arrival Date: 09/29/2018 Time: 18:36 Bed 20 Private MD: ED Physician Rob Pena HPI: 09/29 21:53 This 78 yrs old Male presents to ER via Wheelchair with complaints of Back ps1 Pain, Leg Pain. 21:53 patient has a history of lung CA with metastasis. States that he is coming from nursing [facility] home and was seen and evaluated earlier today. He was given morphine and discharged with T3 and said that it was ineffective. He denies urinary complaints but states that the pain was radiating down the left leg. Pain rated as severe. Normally ambulates without assistance but in rehab for rib fractures from fall. . Historical: - Allergies: 18:38 FLU VACCINE; la1 - PMHx: 18:38 cancer, scalp; CKD; Diabetes - IDDM; Hyperlipidemia; Hypertension; kidney failure; la1 Myocardial infarction; - Immunization history:: Adult Immunizations up to date. - Social history:: Smoking status: Patient/guardian denies using tobacco. - Ebola Screening: : No symptoms or risks identified at this time. ROS: 21:53 Constitutional: Negative for fever, chills, and weight loss, Eyes: Negative for injury, ps1 pain, redness, and discharge, Cardiovascular: Negative for chest pain, palpitations, and edema, Respiratory: Negative for shortness of breath, cough, wheezing, and pleuritic chest pain, Abdomen/GI: Negative for abdominal pain, nausea, vomiting, diarrhea, and constipation, MS/Extremity: Negative for injury and deformity, Skin: Negative for injury, rash, and discoloration, Neuro: Negative for headache, weakness, numbness, tingling, and seizure. 21:53 Back: Positive for pain at rest, radiated pain. Exam: 21:53 Constitutional: This is a well developed, well nourished patient who is awake, alert, ps1 and in no acute distress. Head/Face: Normocephalic, atraumatic. Eyes: Pupils equal round and reactive to light, extra-ocular motions intact. Lids and lashes normal. Conjunctiva and sclera are non-icteric and not injected. Chest/axilla: Normal chest wall appearance and motion. Nontender with no deformity. No lesions are appreciated. Cardiovascular: Regular rate and rhythm. No gallops, murmurs, or rubs. Normal PMI, no JVD. No pulse deficits. Respiratory: Lungs have equal breath sounds bilaterally, clear to auscultation and percussion. No rales, rhonchi or wheezes noted. No increased work of breathing, no retractions or nasal flaring. Abdomen/GI: Soft, non-tender, with normal bowel sounds. No distension or tympany. No guarding or rebound. No evidence of tenderness throughout. Skin: Warm, dry with normal turgor. Normal color with no rashes, no lesions, and no evidence of cellulitis. MS/ Extremity: Pulses equal, no cyanosis. Neurovascular intact. Full, normal range of motion. Neuro: Awake and alert, GCS 15, oriented to person, place, time, and situation. Cranial nerves II-XII grossly intact. Sensory grossly intact. Vital Signs: 18:38 BP 97 / 45; Pulse 72; Resp 18; Temp 97.9; Pulse Ox 98% on R/A; Weight 86.18 kg; Height la1 5 ft. 10 in. (177.80 cm); 19:00 BP 108 / 54; Pulse 71; Resp 18; Pulse Ox 95% on R/A; ea 20:30 BP 126 / 43; Pulse 67; Resp 18; Pulse Ox 95% on R/A; ea 21:35 BP 107 / 52; Pulse 63; Resp 18; Pulse Ox 94% on R/A; ea 22:11 BP 157 / 57; Pulse 67; Resp 18; Pulse Ox 95% on R/A; ea 23:47 BP 120 / 46; Pulse 58; Resp 18; Pulse Ox 95% on R/A; ea 09/30 00:00 BP 108 / 40; Pulse 54; Resp 18; Pulse Ox 95% on R/A; ea 01:10 BP 113 / 50; Pulse 60; Resp 19; Temp 97.8(O); Pulse Ox 95% on R/A; ea 09/29 18:38 Body Mass Index 27.26 (86.18 kg, 177.80 cm) la1 MDM: 09/29 20:04 Patient medically screened. ps1 22:29 Data reviewed: vital signs, nurses notes, lab test result(s), radiologic studies, and ps1 as a result, I will transfer patient for NSGY eval. . 09/29 19:16 Order name: CBC with Diff; Complete Time: 20:46 ps1 09/29 19:16 Order name: Creatinine for Radiology; Complete Time: 20:35 ps1 09/29 19:16 Order name: Type And Screen; Complete Time: 21:05 ps1 09/29 19:16 Order name: CMP; Complete Time: 20:46 ps1 09/29 20:28 Order name: Manual Differential; Complete Time: 20:46 EDMS 09/29 22:51 Order name: Urine Dipstick--Ancillary (enter results); Complete Time: 00:03 gm 09/29 19:16 Order name: Labs collected and sent; Complete Time: 20:23 ps1 09/29 20:48 Order name: Abdomen ; Complete Time: 21:46 EDMS 09/29 19:16 Order name: Urine Dipstick-Ancillary (obtain specimen); Complete Time: 22:57 ps1 Administered Medications: 19:50 Drug: [place] (7.5 mg-325 mg) 1 tabs Route: PO; cc3 20:06 Follow up: Response: No adverse reaction; Pain is decreased ea 22:01 Drug: Gabapentin 300 mg Route: PO; ea 22:30 Follow up: Response: No adverse reaction; Marked relief of symptoms ea 22:01 Drug: Decadron - Dexamethasone 10 mg Route: IVP; Site: left antecubital; ea 23:16 Follow up: Response: No adverse reaction; Marked relief of symptoms ea 22:01 CANCELLED (Duplicate Order): TORadol 30 mg IM once ea 22:01 Drug: TORadol 30 mg Route: IVP; Site: left antecubital; ea 22:30 Follow up: Response: No adverse reaction ea Disposition: 09/29/18 22:29 Transfer ordered to [facility]. Diagnosis are Metastatic Cancer, Sacral Mass, Lower back pain. - Reason for transfer: Higher level of care. - Accepting physician is Jevon. - Condition is Stable. - Problem is new. - Symptoms are unchanged. Signatures: Dispatcher [employer] EDMS Rm Chaudhry RN RN la1 Mindy Ortiz RN RN ea Singer, Phillip, MD MD ps1 Liliana Herrera cc3 Corrections: (The following items were deleted from the chart) 20:48 19:16 Abdomen Pelvis W Con+CT.RAD.BRZ ordered. EDMS EDMS 22:01 22:00 TORadol 30 mg IM once ordered. ea karen 09/30 01:28 09/29 22:29 09/29/2018 22:29 Transfer ordered to [facility]. ea Diagnosis is Metastatic Cancer; Sacral Mass; Lower back pain. Reason for transfer: Higher level of care. Accepting physician is Jevon. Condition is Stable. Problem is new. Symptoms are unchanged. ps1
--- NOTE | 2018-09-29 22:30 | ER ---
Nurse's Notes [facility] Name: Frantz Luo Age: 78 yrs Sex: Male : 1940 Arrival Date: 09/29/2018 Time: 18:36 Bed 20 Private MD: Diagnosis: Metastatic Cancer;Sacral Mass;Lower back pain Presentation: 09/29 18:37 Presenting complaint: Patient states: I was just here a few hours ago for sciatic pain la1 and they gave me a bunch of meds that helped but the pain is back and worse now. Transition of care: patient was not received from another setting of care. Onset of symptoms was September 29, 2018. Risk Assessment: Do you want to hurt yourself or someone else? Patient reports no desire to harm self or others. Initial Sepsis Screen: Does the patient meet any 2 criteria? No. Patient's initial sepsis screen is negative. Does the patient have a suspected source of infection? No. Patient's initial sepsis screen is negative. Care prior to arrival: None. 18:37 Method Of Arrival: Wheelchair la1 18:37 Acuity: WIL 4 la1 Historical: - Allergies: 18:38 FLU VACCINE; la1 - PMHx: 18:38 cancer, scalp; CKD; Diabetes - IDDM; Hyperlipidemia; Hypertension; kidney failure; la1 Myocardial infarction; - Immunization history:: Adult Immunizations up to date. - Social history:: Smoking status: Patient/guardian denies using tobacco. - Ebola Screening: : No symptoms or risks identified at this time. Screenin:02 Abuse screen: Denies threats or abuse. Nutritional screening: No deficits noted. ea Tuberculosis screening: No symptoms or risk factors identified. Fall Risk Secondary diagnosis (15 points). Assessment: 19:03 General: Appears uncomfortable, Behavior is calm, cooperative, appropriate for age. ea Pain: Complains of pain in left lower back and left leg Pain radiates to right lower back Pain currently is 8 out of 10 on a pain scale. Quality of pain is described as aching. Neuro: Level of Consciousness is awake, alert, obeys commands, Oriented to person, place, time, situation. Cardiovascular: Patient's skin is warm and dry. Respiratory: Airway is patent Respiratory effort is even, unlabored, Respiratory pattern is regular, symmetrical. GI: No signs and/or symptoms were reported involving the gastrointestinal system. Derm: Skin is pink, warm \T\ dry. Musculoskeletal: Reports pain in left lower back and right lower back. 20:49 Reassessment: Patient and/or family updated on plan of care and expected duration. Pain ea level reassessed. Patient is alert, oriented x 3, equal unlabored respirations, skin warm/dry/pink. Pt taken to CT. 21:35 Reassessment: Patient and/or family updated on plan of care and expected duration. Pain ea level reassessed. Patient is alert, oriented x 3, equal unlabored respirations, skin warm/dry/pink. pain has decreased. 22:02 Reassessment: Patient and/or family updated on plan of care and expected duration. Pain ea level reassessed. Pt complaining of pain, physician notified, medication order obtained, medication administered, pt tolerated well. 23:10 Reassessment: Patient and/or family updated on plan of care and expected duration. Pain ea level reassessed. Patient is alert, oriented x 3, equal unlabored respirations, skin warm/dry/pink. Awaiting for on acceptance from [facility] for transfer. 09/30 00:00 Reassessment: Patient and/or family updated on plan of care and expected duration. Pain ea level reassessed. Patient is alert, oriented x 3, equal unlabored respirations, skin warm/dry/pink. 01:15 Reassessment: Patient and/or family updated on plan of care and expected duration. Pain ea level reassessed. Patient is alert, oriented x 3, equal unlabored respirations, skin warm/dry/pink. [facility] at facility for transfer. Pt report give to EMS, pt transferred to [facility], tolerated well. Pt left via stretcher per EMS, accompanied by family. Vital Signs: 09/29 18:38 BP 97 / 45; Pulse 72; Resp 18; Temp 97.9; Pulse Ox 98% on R/A; Weight 86.18 kg; Height la1 5 ft. 10 in. (177.80 cm); 19:00 BP 108 / 54; Pulse 71; Resp 18; Pulse Ox 95% on R/A; ea 20:30 BP 126 / 43; Pulse 67; Resp 18; Pulse Ox 95% on R/A; ea 21:35 BP 107 / 52; Pulse 63; Resp 18; Pulse Ox 94% on R/A; ea 22:11 BP 157 / 57; Pulse 67; Resp 18; Pulse Ox 95% on R/A; ea 23:47 BP 120 / 46; Pulse 58; Resp 18; Pulse Ox 95% on R/A; ea 09/30 00:00 BP 108 / 40; Pulse 54; Resp 18; Pulse Ox 95% on R/A; ea 01:10 BP 113 / 50; Pulse 60; Resp 19; Temp 97.8(O); Pulse Ox 95% on R/A; ea 09/29 18:38 Body Mass Index 27.26 (86.18 kg, 177.80 cm) la1 ED Course: 09/29 18:36 Patient arrived in ED. rg4 18:37 Antonio Schmidt MD is Private Physician. rg4 18:38 Triage completed. la1 18:38 Arm band placed on left wrist. la1 18:57 Mindy Ortiz RN is Primary Nurse. ea 19:02 Patient has correct armband on for positive identification. Bed in low position. Call ea light in reach. Side rails up X2. 19:13 Rob Pena MD is Attending Physician. ps1 20:00 Inserted saline lock: 22 gauge in left antecubital area, using aseptic technique. Blood ea collected. 20:06 Radiology exam delayed due to lab results not completed at this time. (BUN/Creatinine). vm2 20:56 CT completed. Patient moved to CT via stretcher. Patient moved back from CT. bq 21:00 Abdomen In Process Unspecified. EDMS 22:[address] [facility]. spoke with saji laura RN. gm 22:15 doc to doc was done with dr strange and dr pena. gm 22:57 No provider procedures requiring assistance completed. Patient transferred, IV remains ea in place. 23:53 called saji and she said [facility] was short staffed tonight and she will call when bed is cleaned for patient. 09/30 00:03 administrative approval was given at 0003. patient going to [address] [place] [address] bed 2263. gm Administered Medications: 09/29 19:50 Drug: [place] (7.5 mg-325 mg) 1 tabs Route: PO; cc3 20:06 Follow up: Response: No adverse reaction; Pain is decreased ea 22:01 Drug: Gabapentin 300 mg Route: PO; ea 22:30 Follow up: Response: No adverse reaction; Marked relief of symptoms ea 22:01 Drug: Decadron - Dexamethasone 10 mg Route: IVP; Site: left antecubital; ea 23:16 Follow up: Response: No adverse reaction; Marked relief of symptoms ea 22: CANCELLED (Duplicate Order): TORadol 30 mg IM once ea 22: Drug: TORadol 30 mg Route: IVP; Site: left antecubital; ea 22:30 Follow up: Response: No adverse reaction ea Outcome: :29 ER care complete, transfer ordered by . ps1 23:00 Instructed on the need for transfer. ea 09/30 01:28 Transferred by ground EMS to [facility], Transfer form completed. ea Condition: stable :28 Patient left the ED. ea Signatures: Dispatcher [employer] EDInge Shields Lee, RN RN la1 Garcia, Rubi rg4 McGuire, Victoria vm2 Mindy Ortiz RN RN ea Singer, Phillip, MD MD ps1 Cordel, Charlene cc3 Kristen Barraza gm
[2018-09-29 23:07] LABS: Urine Blood NEGATIVE (NEG); Urine Glucose NEGATIVE (NEG); Urine Protein 2+ (NEG); Urine Specific Gravity 1.015 (1.005-1.030)
== END 2018-09-30 01:28 | disposition short-term general hospital (02) ==
LOC: ER 18:32
DX: C34.90 Malignant neoplasm of unspecified part of unspecified bronchus or lung (principal); C79.51 Secondary malignant neoplasm of bone; R22.9 Localized swelling, mass and lump, unspecified; Z88.7 Allergy status to serum and vaccine
CPT/HCPCS: 36415; 74176; 80053; 81003; 85025; 86850; 86900; 86901; 96374; 96375; 99285; J1100

== ENCOUNTER 2018-10-18 02:58 | Inpatient (IN) | payer OTHER ==
[2018-10-18 03:38] LABS: Absolute Lymphocytes (CBC) 0.9 K/uL (0.7-4.9); Absolute Monocytes 0.6 K/uL (0.1-1.3); Absolute Neutrophil 11.8 K/uL (1.8-8.0); Basophils % 0.5 % (0-1.3); Eosinophils % 1.4 % (0-4.4); Hematocrit 36.4 % (39.6-49.0); Lymphocytes % 6.8 % (15.3-44.8); MPV 8.1 fL (7.6-11.3); Monocytes % 4.7 % (3.3-12.3); Protime INR 1.11; RBC Red Blood Cell Count 4.48 M/uL (4.33-5.43)
[2018-10-18] MEDS ORDERED: IPRATROPIUM BROM 0.5MG/2.5ML ONE (03:38)
[2018-10-18] MEDS ORDERED: METHYLPREDNISOLONE 125 MG INJ ONE (03:38)
[2018-10-18] MEDS ORDERED: LEVALBUTEROL 1.25 MG/3 ML NEB ONE (03:38)
[2018-10-18] MEDS ORDERED: VANCOMYCIN 1 GM/250 ML BAG ONE (03:38)
[2018-10-18] MEDS ORDERED: NA CHLORIDE 0.9% 1,000 ML ONE (03:39)
[2018-10-18] MEDS ORDERED: AZITHROMYCIN 500 MG/250 ML BAG ONE (03:39)
[2018-10-18] MEDS ORDERED: FAMOTIDINE 20 MG/2 ML VIAL IV ONE (03:39)
[2018-10-18] MEDS ORDERED: PIPER/TAZO/NS 3.375gm 3.375 GM/100 ML BAG ONE (03:39)
[2018-10-18 03:56] LABS: ALT/SGPT 25 U/L (12-78); AST/SGOT 20 U/L (15-37); Albumin 2.5 g/dL (3.4-5.0); Alkaline Phosphatase 115 U/L (45-117); BUN Blood Urea Nitrogen 35 mg/dL (7-18); Bicarbonate 22 mmol/L (21-32); Bilirubin Direct 0.1 mg/dL (0-0.2); Bilirubin Total 0.3 mg/dL (0.2-1.0); Glucose Level 99 mg/dL (74-106); Lipase 233 U/L (73-393); NT PRO-BNP 280 pg/mL (<450); Potassium 4.7 mmol/L (3.5-5.1); Protein, Total 6.3 g/dL (6.4-8.2); Sodium Level 133 mmol/L (136-145); Troponin (Emerg Dept Use Only) < 0.02 ng/mL (0.0-0.045)
[2018-10-18 03:58] LABS: Magnesium 1.3 mg/dL (1.8-2.4)
[2018-10-18] MEDS ORDERED: Magnesium Sulfate 2gm IVPB 2 G/50 ML BAG IV ONE (04:14)
--- NOTE | 2018-10-18 04:21 | ER ---
Nurse's Notes [facility] Name: Frantz Luo Age: 78 yrs Sex: Male : 1940 Arrival Date: 10/18/2018 Time: 03:02 Bed 15 Private MD: Diagnosis: Fever, unspecified;Unspecified kidney failure;Dyspnea, unspecified;Type 2 diabetes mellitus;Pneumonia due to other specified bacteria Presentation: 10/18 03:00 Presenting complaint: EMS states: feeling ill yesterday afternoon having fever and he rr5 was nauseated before. Temperature checked its 102.1 F. diagnosed of lung Cancer stage 4 a month ago. 03:00 Transition of care: patient was not received from another setting of care. Onset of rr5 symptoms was October 17, 2018. Risk Assessment: Do you want to hurt yourself or someone else? Patient reports no desire to harm self or others. Initial Sepsis Screen: Does the patient meet any 2 criteria? Temp <36.0*C (96.8*F)) or > 38.3*C (100.9*F). HR > 90 bpm. Yes No. Patient's initial sepsis screen is negative. Does the patient have a suspected source of infection? No. Patient's initial sepsis screen is negative. Care prior to arrival: Medication(s) given: Tylenol, at 0245 H. 03:00 Method Of Arrival: EMS: [facility] rr5 03:00 Acuity: WIL 3 rr5 Historical: - Allergies: 03:21 FLU VACCINE; rr5 - Home Meds: 03:21 Starlix 120 mg Oral tab [Active]; Toprol XL 200 mg Oral Tb24 [Active]; amlodipine 10 mg rr5 tab [Active]; montelukast 10 mg oral tab [Active]; krill oil 843-57-77-50 mg oral cap [Active]; simvastatin 40 mg Oral tab 1 tab once daily [Active]; tamsulosin 0.4 mg oral cp24 1 cap once daily [Active]; finasteride 5 mg oral tab 1 tab once daily [Active]; ezetimibe oral oral [Active]; aspirin 81 mg Oral chew [Active]; ascorbic acid (vitamin C) 500 mg tab [Active]; cholecalciferol (vitamin D3) 5,000 unit oral cap [Active]; dexamethasone 4 mg Oral tab [Active]; bisacodyl 10 mg Rectal supp [Active]; lidocaine patch 5% [Active]; nystatin 100,000 unit/mL Oral susp [Active]; pantoprazole 40 mg oral TbEC [Active]; polyethylene glycol 3350 oral oral [Active]; Senna with Docusate Sodium oral oral [Active]; Lantus 100 unit/mL Sub-Q soln [Active]; - PMHx: 03:21 lung cancer; cancer, scalp; CKD; Diabetes - IDDM; Hyperlipidemia; Hypertension; kidney rr5 failure; Myocardial infarction; - Immunization history:: Adult Immunizations not up to date, allergic. - Social history:: Smoking status: . - Family history:: not pertinent. - Ebola Screening: : Patient negative for fever greater than or equal to 101.5 degrees Fahrenheit, and additional compatible Ebola Virus Disease symptoms Patient denies exposure to infectious person Patient denies travel to an Ebola-affected area in the 21 days before illness onset. Screenin:15 Abuse screen: Denies threats or abuse. Denies injuries from another. Nutritional rr5 screening: No deficits noted. Tuberculosis screening: No symptoms or risk factors identified. Fall Risk IV access (20 points). Gait- Weak (10 pts.). Total Carias Fall Scale indicates Low Risk Score (25-44 pts). Fall prevention measures have been instituted. Side Rails Up X 2 Placed close to Nursing Station Frequent Obs/Assesments occuring Family Present and informed to notify staff if they need to leave bedside As available Patient and Family Educated on Fall Prevention Program and strategies. Assessment: 03:10 General: Appears in no apparent distress. uncomfortable, Behavior is calm, cooperative, rr5 appropriate for age. Pain: Denies pain. Neuro: Level of Consciousness is awake, alert, obeys commands, Oriented to person, place, time, situation, Appropriate for age Moves all extremities. Weakness Reports weakness in body weakness. Cardiovascular: Capillary refill < 3 seconds Patient's skin is warm and dry. Rhythm is sinus tachycardia. Respiratory: Airway is patent Respiratory effort is even, unlabored, Respiratory pattern is regular, symmetrical. GI: Abdomen is distended, Reports nausea. : No signs and/or symptoms were reported regarding the genitourinary system. EENT: No signs and/or symptoms were reported regarding the EENT system. Derm: Skin is intact, Skin is pink, warm \T\ dry. Skin temperature is warm. Musculoskeletal: Circulation, motion, and sensation intact. Capillary refill < 3 seconds, Range of motion: intact in all extremities. 04:15 Reassessment: Patient appears in no apparent distress at this time. Patient is alert, rr5 oriented x 3, equal unlabored respirations, skin warm/dry/pink. much better compare before Patient states symptoms have improved. 05:35 Reassessment: Patient appears in no apparent distress at this time. Patient is alert, rr5 oriented x 3, equal unlabored respirations, skin warm/dry/pink. at bedside and explained the need for admission, patient agreed Patient states feeling better. Patient states symptoms have improved. 06:00 Reassessment: Patient appears in no apparent distress at this time. Patient is alert, rr5 oriented x 3, equal unlabored respirations, skin warm/dry/pink. no complaints made. for transfer in medical surgical department Patient states feeling better. Vital Signs: 03:00 BP 120 / 54; Pulse 122; Resp 19; Temp 101.1; Pulse Ox 97% ; rr5 03:51 Weight 83.91 kg; Height 5 ft. 10 in. (177.80 cm); rr5 04:15 BP 107 / 50; Pulse 109; Resp 18; Temp 97.7; Pulse Ox 96% ; rr5 05:30 BP 103 / 59; Pulse 95; Resp 17; Pulse Ox 99% on 2 lpm NC; rr5 06:00 BP 107 / 60; Pulse 88; Resp 18; Temp 97.7; Pulse Ox 99% on 2 lpm NC; rr5 03:51 Body Mass Index 26.54 (83.91 kg, 177.80 cm) rr5 ED Course: 03:02 Patient arrived in ED. am2 03:02 Desmond Christianson, KRYSTIAN is Primary Nurse. rr5 03:04 Philippe Conti MD is Attending Physician. [facility] 03:05 Inserted saline lock: 20 gauge in right antecubital area, using aseptic technique. cc3 Blood collected. 03:06 Triage completed. rr5 03:10 Patient has correct armband on for positive identification. Placed in gown. Bed in low rr5 position. Call light in reach. Side rails up X2. child monitor on. Pulse ox on. NIBP on. 03:10 Warm blanket given. Head of bed. rr5 03:23 Arm band placed on. EKG completed in triage. Results shown to MD. rr5 03:36 X-ray completed. Portable x-ray completed in exam room. Patient tolerated procedure kw well. 03:38 XRAY Chest (1 view) In Process Unspecified. EDMS 03:40 Initial Neb Treatment Given as ordered Patient was instructed and evaluated on rr5 procedure Patient tolerated procedure well without adverse effect. 04:00 Inserted saline lock: 22 gauge in left forearm, using aseptic technique. rr5 04:18 Terrence Abraham MD is Hospitalizing Provider. [facility] 05:04 CT completed. Patient tolerated procedure well. Patient moved to CT via stretcher. vm2 Patient moved back from [place]. 06:06 No provider procedures requiring assistance completed. Patient admitted, IV remains in rr5 place. intact, bleeding controlled, No redness/swelling at site. Administered Medications: 03:30 Drug: SOLU-Medrol 125 mg Route: IVP; Site: right antecubital; rr5 05:43 Follow up: Response: No adverse reaction rr5 03:32 Drug: Pepcid 20 mg Route: IVP; Site: right antecubital; rr5 05:43 Follow up: Response: No adverse reaction rr5 03:35 Drug: NS 0.9% 1000 ml Route: IV; Rate: 1 bolus; Site: right antecubital; rr5 05:12 Follow up: Response: No adverse reaction; IV Status: Completed infusion; IV Intake: rr5 1000ml 03:40 Drug: Xopenex 1.25 mg Route: Inhalation; rr5 03:45 Drug: AtroVENT Aerosol 0.5 mg Route: Inhalation; rr5 03:45 Drug: Zithromax 500 mg Route: IVPB; Infused Over: 1 hrs; Site: right antecubital; rr5 04:45 Follow up: Response: No adverse reaction; IV Status: Completed infusion; IV Intake: rr5 250ml 04:00 Drug: Magnesium Sulfate 2 grams Route: IVPB; Infused Over: 2 hrs; Site: left forearm; rr5 06:00 Follow up: Response: No adverse reaction; IV Status: Completed infusion; IV Intake: rr5 100ml 04:46 Drug: Zosyn 3.375 grams Route: IVPB; Infused Over: 60 mins; Site: right antecubital; rr5 05:50 Follow up: Response: No adverse reaction; IV Status: Completed infusion; IV Intake: rr5 100ml 06:09 Drug: vancoMYCIN 1 grams Route: IVPB; Infused Over: 2 hrs; Site: right antecubital; cc3 06:12 Follow up: IV Status: Infusion continued upon admission rr5 Intake: 04:45 IV: 250ml; Total: 250ml. rr5 05:12 IV: 1000ml; Total: 1250ml. rr5 05:50 IV: 100ml; Total: 1350ml. rr5 06:00 IV: 100ml; Total: 1450ml. rr5 Output: 04:35 Urine: 150ml (Voided); Total: 150ml. rr5 Outcome: 04:20 Decision to Hospitalize by Provider. александр 06:06 Admitted to Med/surg accompanied by tech, via stretcher, room 216 , with oxygen, with rr5 chart, Report called to [facility] 06:06 Condition: stable 06:06 Instructed on the need for admit. 06:35 Patient left the ED. rr5 Signatures: Dispatcher [employer] EDMS Philippe Conti MD MD cha Whitley, Kimberlee kw Moreno, Amanda Mirna Ardon Liliana Montesinos cc3 Desmond Christianson RN RN rr5 Corrections: (The following items were deleted from the chart) 03:13 03:00 Presenting complaint: EMS states: feeling ill yesterday afternoon having fever rr5 and he was nauseated before. Temperature checked its 102.1 F according to home health nurse last week he was positive for flu influenza test. he had his chemotherapy 3 weeks ago for diagnosis of lung Cancer stage 4. rr5 04:00 03:10 GI: Reports nausea, rr5 rr5 07:38 03:00 Initial Sepsis Screen: Does the patient meet any 2 criteria? No. Patient's rr5 initial sepsis screen is negative. Does the patient have a suspected source of infection? No. Patient's initial sepsis screen is negative. rr5
--- NOTE | 2018-10-18 04:22 | EDPHYS ---
Physician Documentation [facility] Name: Frantz Luo Age: 78 yrs Sex: Male : 1940 Arrival Date: 10/18/2018 Time: 03:02 Bed 15 Private MD: ED Physician Phliippe Conti HPI: 10/18 03:16 This 78 yrs old Male presents to ER via EMS with complaints of Fever. александр 03:16 The patient reports fever, that was measured at 103 degrees Fahrenheit. Onset: The александр symptoms/episode began/occurred 2 day(s) ago. Modifying factors: there are no obvious modifying factors. Associated signs and symptoms: Pertinent positives: arthralgias, chills, cough, that has streaks of blood. Severity of symptoms: At their worst the symptoms were mild moderate in the emergency department the symptoms are unchanged. The patient has experienced similar episodes in the past, a few times. 03:17 cough congestion. The patient or guardian reports airway noise, cough, described as александр mild, flu symptoms, arthralgias, low-grade fever, myalgias, hoarse voice. Severity of symptoms: At their worst the symptoms were mild, moderate. Historical: - Allergies: 03:21 FLU VACCINE; rr5 - Home Meds: 03:21 Starlix 120 mg Oral tab [Active]; Toprol XL 200 mg Oral Tb24 [Active]; amlodipine 10 mg rr5 tab [Active]; montelukast 10 mg oral tab [Active]; krill oil 845-36-01-50 mg oral cap [Active]; simvastatin 40 mg Oral tab 1 tab once daily [Active]; tamsulosin 0.4 mg oral cp24 1 cap once daily [Active]; finasteride 5 mg oral tab 1 tab once daily [Active]; ezetimibe oral oral [Active]; aspirin 81 mg Oral chew [Active]; ascorbic acid (vitamin C) 500 mg tab [Active]; cholecalciferol (vitamin D3) 5,000 unit oral cap [Active]; dexamethasone 4 mg Oral tab [Active]; bisacodyl 10 mg Rectal supp [Active]; lidocaine patch 5% [Active]; nystatin 100,000 unit/mL Oral susp [Active]; pantoprazole 40 mg oral TbEC [Active]; polyethylene glycol 3350 oral oral [Active]; Senna with Docusate Sodium oral oral [Active]; Lantus 100 unit/mL Sub-Q soln [Active]; - PMHx: 03:21 lung cancer; cancer, scalp; CKD; Diabetes - IDDM; Hyperlipidemia; Hypertension; kidney rr5 failure; Myocardial infarction; - Immunization history:: Adult Immunizations not up to date, allergic. - Social history:: Smoking status: . - Family history:: not pertinent. - Ebola Screening: : Patient negative for fever greater than or equal to 101.5 degrees Fahrenheit, and additional compatible Ebola Virus Disease symptoms Patient denies exposure to infectious person Patient denies travel to an Ebola-affected area in the 21 days before illness onset. ROS: 03:18 Eyes: Negative for injury, pain, redness, and discharge, ENT: Negative for injury, александр pain, and discharge, Neck: Negative for injury, pain, and swelling, Back: Negative for injury and pain, : Negative for injury, bleeding, discharge, and swelling, MS/Extremity: Negative for injury and deformity, Neuro: Negative for headache, weakness, numbness, tingling, and seizure, Psych: Negative for depression, anxiety, suicide ideation, homicidal ideation, and hallucinations, Allergy/Immunology: Negative for hives, rash, and allergies, Endocrine: Negative for neck swelling, polydipsia, polyuria, polyphagia, and marked weight changes, Hematologic/Lymphatic: Negative for swollen nodes, abnormal bleeding, and unusual bruising. 03:18 Constitutional: Positive for body aches, chills, fatigue, fever. 03:18 Cardiovascular: Positive for palpitations. 03:18 Respiratory: Positive for cough, shortness of breath, wheezing, expiratory. 03:18 Abdomen/GI: Positive for abdominal pain, nausea and vomiting. 03:18 Skin: Positive for pallor. Exam: 03:18 Head/Face: Normocephalic, atraumatic. Eyes: Pupils equal round and reactive to light, александр extra-ocular motions intact. Lids and lashes normal. Conjunctiva and sclera are non-icteric and not injected. Cornea within normal limits. Periorbital areas with no swelling, redness, or edema. ENT: Nares patent. No nasal discharge, no septal abnormalities noted. Tympanic membranes are normal and external auditory canals are clear. Oropharynx with no redness, swelling, or masses, exudates, or evidence of obstruction, uvula midline. Mucous membranes moist. Neck: Trachea midline, no thyromegaly or masses palpated, and no cervical lymphadenopathy. Supple, full range of motion without nuchal rigidity, or vertebral point tenderness. No Meningismus. Chest/axilla: Normal chest wall appearance and motion. Nontender with no deformity. No lesions are appreciated. Back: No spinal tenderness. No costovertebral tenderness. Full range of motion. Male : Normal genitalia with no discharge or lesions. MS/ Extremity: Pulses equal, no cyanosis. Neurovascular intact. Full, normal range of motion. Neuro: Awake and alert, GCS 15, oriented to person, place, time, and situation. Cranial nerves II-XII grossly intact. Motor strength 5/5 in all extremities. Sensory grossly intact. Cerebellar exam normal. Normal gait. Psych: Awake, alert, with orientation to person, place and time. Behavior, mood, and affect are within normal limits. 03:18 Constitutional: The patient appears febrile. 03:18 Cardiovascular: Rate: tachycardic, Rhythm: regular, Pulses: Pulses are 4+ in bilateral radial, brachial, femoral, popliteal, posterior tibial and and dorsalis pedis arteries.. Heart sounds: normal, JVD: is not appreciated. 03:18 Respiratory: the patient does not display signs of respiratory distress, Respirations: normal, Breath sounds: bronchial sounds, rhonchi, wheezing: expiratory Vital Signs: 03:00 BP 120 / 54; Pulse 122; Resp 19; Temp 101.1; Pulse Ox 97% ; rr5 03:51 Weight 83.91 kg; Height 5 ft. 10 in. (177.80 cm); rr5 04:15 BP 107 / 50; Pulse 109; Resp 18; Temp 97.7; Pulse Ox 96% ; rr5 05:30 BP 103 / 59; Pulse 95; Resp 17; Pulse Ox 99% on 2 lpm NC; rr5 06:00 BP 107 / 60; Pulse 88; Resp 18; Temp 97.7; Pulse Ox 99% on 2 lpm NC; rr5 03:51 Body Mass Index 26.54 (83.91 kg, 177.80 cm) rr5 MDM: 03:04 Patient medically screened. [facility] 03:18 Data reviewed: vital signs, nurses notes, lab test result(s), EKG, radiologic studies, александр CT scan, plain films. 10/18 03:14 Order name: Basic Metabolic Panel [facility] 10/18 03:14 Order name: CBC with Diff александр 10/18 03:14 Order name: LFT's [facility] 10/18 03:14 Order name: Magnesium [facility] 10/18 03:14 Order name: NT PRO-BNP александр 10/18 03:14 Order name: PT-INR [facility] 10/18 03:14 Order name: Troponin (emerg Dept Use Only) [facility] 10/18 03:14 Order name: Lipase; Complete Time: 04:16 александр 10/18 03:14 Order name: Urine Culture [facility] 10/18 03:14 Order name: Procalcitonin; Complete Time: 04:16 александр 10/18 03:14 Order name: Flu; Complete Time: 04:16 александр 10/18 03:15 Order name: Basic Metabolic Panel; Complete Time: 04:16 EDMS 10/18 03:15 Order name: CBC with Automated Diff EDMS 10/18 03:15 Order name: Liver (Hepatic) Function; Complete Time: 04:16 EDMS 10/18 03:14 Order name: XRAY Chest (1 view) [facility] 10/18 03:15 Order name: Magnesium; Complete Time: 04:16 EDMS 10/18 03:15 Order name: NT PRO-BNP; Complete Time: 04:16 EDMS 10/18 03:15 Order name: Protime (+INR); Complete Time: 04:16 EDMS 10/18 03:15 Order name: Troponin (Emerg Dept Use Only); Complete Time: 04:16 EDMS 10/18 03:31 Order name: Blood Culture Adult (2) [facility] 10/18 03:31 Order name: Lactate; Complete Time: 05:07 александр 10/18 04:00 Order name: Manual Differential EDMS 10/18 04:05 Order name: Chest Abd Pelvis Wo Con EDMS 10/18 04:34 Order name: Urine Dipstick--Ancillary (enter results); Complete Time: 05:07 tl2 10/18 03:14 Order name: EKG; Complete Time: 03:16 александр 10/18 03:14 Order name: Cardiac monitoring; Complete Time: 03:30 александр 10/18 03:14 Order name: EKG - Nurse/Tech; Complete Time: 03:30 александр 10/18 03:14 Order name: IV Saline Lock; Complete Time: 03:30 [facility] 10/18 03:14 Order name: Labs collected and sent; Complete Time: 03: [facility] 10/18 03:14 Order name: O2 Per Protocol; Complete Time: 03:31 [facility] 10/18 03:14 Order name: O2 Sat Monitoring; Complete Time: 03:31 [facility] 10/18 03:14 Order name: Urine Dipstick-Ancillary (obtain specimen); Complete Time: 04:43 [facility] Administered Medications: 03:30 Drug: SOLU-Medrol 125 mg Route: IVP; Site: right antecubital; rr5 05:43 Follow up: Response: No adverse reaction rr5 03:32 Drug: Pepcid 20 mg Route: IVP; Site: right antecubital; rr5 05:43 Follow up: Response: No adverse reaction rr5 03:35 Drug: NS 0.9% 1000 ml Route: IV; Rate: 1 bolus; Site: right antecubital; rr5 05:12 Follow up: Response: No adverse reaction; IV Status: Completed infusion; IV Intake: rr5 1000ml 03:40 Drug: Xopenex 1.25 mg Route: Inhalation; rr5 03:45 Drug: AtroVENT Aerosol 0.5 mg Route: Inhalation; rr5 03:45 Drug: Zithromax 500 mg Route: IVPB; Infused Over: 1 hrs; Site: right antecubital; rr5 04:45 Follow up: Response: No adverse reaction; IV Status: Completed infusion; IV Intake: rr5 250ml 04:00 Drug: Magnesium Sulfate 2 grams Route: IVPB; Infused Over: 2 hrs; Site: left forearm; rr5 06:00 Follow up: Response: No adverse reaction; IV Status: Completed infusion; IV Intake: rr5 100ml 04:46 Drug: Zosyn 3.375 grams Route: IVPB; Infused Over: 60 mins; Site: right antecubital; rr5 05:50 Follow up: Response: No adverse reaction; IV Status: Completed infusion; IV Intake: rr5 100ml 06:09 Drug: vancoMYCIN 1 grams Route: IVPB; Infused Over: 2 hrs; Site: right antecubital; cc3 06:12 Follow up: IV Status: Infusion continued upon admission rr5 Disposition: 10/18/18 04:20 Hospitalization ordered by Terrence Abraham for Inpatient Admission. Preliminary diagnosis are Fever, unspecified, Unspecified kidney failure, Dyspnea, unspecified, Type 2 diabetes mellitus, Pneumonia due to other specified bacteria. - Bed requested for Telemetry/MedSurg (Inpatient). - Status is Inpatient Admission. rr5 - Condition is Fair. - Problem is new. - Symptoms have improved. UTI on Admission? No Signatures: Dispatcher [employer] [facility] Philippe Conti MD MD cha Knox, Taylor RN RN tl2 Liliana Herrera cc3 Desmond Christianson, RN RN rr5 Corrections: (The following items were deleted from the chart) 04:05 03:58 Chest Abdomen Pelvis W Con+CT.RAD.BRZ ordered. [facility] 05:16 04:20 Hospitalization Ordered by Terrence Abraham MD for Inpatient Admission. Preliminary tl2 diagnosis is Fever, unspecified; Unspecified kidney failure; Dyspnea, unspecified; Type 2 diabetes mellitus; Pneumonia due to other specified bacteria. Bed requested for Telemetry/MedSurg (Inpatient). Status is Inpatient Admission. Condition is Fair. Problem is new. Symptoms have improved. UTI on Admission? No. александр 06:35 05:16 10/18/2018 04:20 Hospitalization Ordered by Terrence Abraham MD for Inpatient rr5 Admission. Preliminary diagnosis is Fever, unspecified; Unspecified kidney failure; Dyspnea, unspecified; Type 2 diabetes mellitus; Pneumonia due to other specified bacteria. Bed requested for Telemetry/MedSurg (Inpatient). Status is Inpatient Admission. Condition is Fair. Problem is new. Symptoms have improved. UTI on Admission? No. tl2
[2018-10-18 04:46] LABS: Urine Blood TRACE (NEG); Urine Glucose NEGATIVE (NEG); Urine Protein 2+ (NEG)
[2018-10-18 05:19] LABS: Blood Morphology Comment NOT SEEN (NOT SEEN); Platelet Estimate ADEQ
--- NOTE | 2018-10-18 05:25 | P.HP ---
Certification for Inpatient Patient admitted to: Inpatient With expected LOS: >2 Midnights Practitioner: I am a practitioner with admitting privileges, knowledge of patient current condition, hospital course, and medical plan of care. Services: Services provided to patient in accordance with Admission requirements found in Title 42 Section 412.3 of the Code of Federal Regulations Patient History Date of Service: 10/18/18 Reason for admission: acute bronchitis History of Present Illness: Mr Luo is a 78 years odl male with history of IDDM, CKD, HTN, CAD, who was recently admitted to the hospital, he was found to have a stage IV Adenocarcinam of the lung. He currently finish radiation therapy (6 sessions). Now, he is on plan to start paliative chemotherapy. The patient came to ED because start with fever (102.1 F at home), nausea and diffuse abdominal pain about 2 days ago. He was also more congestive, with productive cough, having more redness/brownish secretions. He denied chest pain or more SOB. Lab work remarkable for leukocytosis 13.6 K, elevated procalcitonin, lactate is still pending, magnesium low, creatinine elevated. At arrival his temp was 101.1F. influenza test was negative. Awaiting CXR and CT chest/abd and pelvis report. Allergies flu vaccine Allergy (Uncoded 08/02/16 08:36) hives and swelling from injection site radiating up arm Home Medications: Amlodipine [Norvasc*] 10 mg PO DAILY 09/17/18 Ascorbic Acid [Vitamin C] 500 mg PO DAILY 09/17/18 Aspirin [Aspirin EC 81 MG] 81 mg PO DAILY 09/17/18 Cholecalciferol (Vitamin D3) [D3-50] 10,000 unit PO DAILY 09/17/18 Ezetimibe [Zetia*] 10 mg PO DAILY 09/17/18 Finasteride [Proscar*] 5 mg PO DAILY 09/17/18 Insulin Glargine,Hum.rec.anlog [Lantus Solostar] 40 units SQ BID 09/17/18 Krill/Om-3/Dha/Epa/Phospho/Ast [Krill Oil 500 mg Softgel] 500 mg PO DAILY Metoprolol Succinate [Toprol Xl] 200 mg PO DAILY 09/17/18 Montelukast [Singulair*] 10 mg PO DAILY 09/17/18 Multivit-Min/FA/Lycopen/Lutein [Centrum Silver Tablet] 1 tab PO DAILY 09/17/18 Nateglinide [Starlix] 120 mg PO BID 09/17/18 Simvastatin [Zocor] 40 mg PO BEDTIME 09/17/18 Tamsulosin [Flomax*] 0.4 mg PO BEDTIME 09/17/18 - Past Medical/Surgical History Diabetic: Yes -: cancer scalp -: [place] -: IDDM -: hyperlipidemia -: HTN -: Chronic kidney disease - Family History Family History: Reviewed- Non-Contributory - Social History Smoking Status: Former smoker Alcohol use: No CD- Drugs: No Caffeine use: Yes Place of Residence: Home Review of Systems 10-point ROS is otherwise unremarkable Physical Examination - Physical Exam General: Alert, In no apparent distress HEENT: Atraumatic, PERRLA, Mucous membr. moist/pink, EOMI, Sclerae nonicteric Neck: Supple, 2+ carotid pulse no bruit, No LAD, Without JVD or thyroid abnormality Respiratory: Diminished, Crackles/rales (diffuse crackle bilateral) Cardiovascular: Regular rate/rhythm, Normal S1 S2 Gastrointestinal: Normal bowel sounds, No tenderness Musculoskeletal: No tenderness Integumentary: No rashes Neurological: Normal speech, Normal strength at 5/5 x4 extr, Normal tone, Normal affect Lymphatics: No axilla or inguinal lymphadenopathy - Studies Laboratory Data (last 24 hrs) 10/18/18 03:10: PT 13.1 H, INR 1.11 10/18/18 03:10: WBC 13.6 H, Hgb 11.9 L, Hct 36.4 L, Plt Count 118 L 10/18/18 03:10: Sodium 133 L, Potassium 4.7, BUN 35 H, Creatinine 2.04 H, Glucose 99, Magnesium 1.3 L* D, Total Bilirubin 0.3, AST 20, ALT 25, Alkaline Phosphatase 115, Lipase 233 Microbiology Data (last 24 hrs): 10/18/18 03:10 Nasopharnyx Influenza Type A Antigen Screen - Final 10/18/18 03:10 Nasopharnyx Influenza Type B Antigen Screen - Final Assessment and Plan - Problems (Diagnosis) (1) Acute kidney injury superimposed on CKD Current Visit: Yes Status: Acute (2) Hypertension Onset Date: 09/17/18 Current Visit: No Status: Chronic Qualifiers: Hypertension type: essential hypertension Qualified Code(s): I10 - Essential (primary) hypertension (3) Type 2 diabetes mellitus Onset Date: 09/17/18 Current Visit: No Status: Chronic Qualifiers: Diabetes mellitus terminal gauger insulin use: without fci use Diabetes mellitus complication status: without complication Qualified Code(s): E11.9 - Type 2 diabetes mellitus without complications (4) Stage IV adenocarcinoma of lung Current Visit: Yes Status: Acute Qualifiers: Laterality: left Qualified Code(s): C34.92 - Malignant neoplasm of unspecified part of left bronchus or lung (5) Acute bronchitis Current Visit: Yes Status: Acute Qualifiers: Bronchitis organism: unspecified organism Qualified Code(s): J20.9 - Acute bronchitis, unspecified - Plan The patient will be admitted to the hospital due to fever and nausea, associated with more respiratory symptoms. Images report are still pending, differential diagnosis include viral infection, acute bronchitis vs early pneumonia. Will start empiric IV antibiotic, IV fluids, breathing treatments. - Advance Directives Does patient have a Living Will: No Does patient have a Durable POA for Healthcare: No - Code Status/Comfort Care Code Status Assessed: Yes Code Status: Do Not Resuscitate
[2018-10-18] MEDS ORDERED: PIPER/TAZO/NS 3.375gm 3.375 GM/100 ML BAG IVPB SCH (06:35)
[2018-10-18 06:48] LABS: Urine Appearance CLEAR; Urine Bilirubin NEGATIVE (NEG); Urine Blood NEGATIVE (NEG); Urine Color YELLOW; Urine Glucose NEGATIVE (NEG); Urine Protein 1+ (NEG); Urine Specific Gravity 1.015 (1.005-1.030); Urine Urobilinogen 0.2 mg/dL (0.2-1.0)
[2018-10-18 06:51] LABS: Urine Microscopic Reflex ORDER UMIC
--- NOTE | 2018-10-18 06:52 | RAD REPORT ---
EXAM DESCRIPTION: RAD - Chest Single View - 10/18/2018 3:37 am CLINICAL HISTORY: Fever, lung cancer history COMPARISON: September 21 TECHNIQUE: AP portable chest image was obtained 0334 hours . FINDINGS: Chronic interstitial lung disease is evident. No new mass or consolidation. Patient has kn own mass in the medial left lung base. Acute failure or volume overload are doubtful. Heart and vascu lature are normal. No measurable pleural effusion and no pneumothorax. No acute bony abnormality seen . No acute aortic findings suspected. IMPRESSION: No gross change to the known medial left lung base mass. Chronic interstitial lung disease is present potentially masking early interstitial edema or infiltra te.
[2018-10-18] MEDS: NA CHLORIDE 0.9% 1,000 ML IV SCH ×2 (06:54→16:35)
[2018-10-18 07:04] LABS: Urine Bacteria <20 /HPF (NONE SEEN); Urine Coarse Granular Casts 0-5 /LPF (NONE SEEN); Urine Culture Reflex Order NOT NEEDED; Urine RBC <5 /HPF (NONE SEEN)
[2018-10-18] MEDS: INSULIN -REGULAR HUMAN 50 UNIT/0.5 ML ML SQ SCH ×4 (07:30→21:54)
[2018-10-18] MEDS: VANCOMYCIN 500 MG in NA CHLORIDE 0.9% 100 ML IVPB ONE ×2 (07:30→12:26)
--- NOTE | 2018-10-18 08:08 | EKG ---
Test Date: 2018-10-18 Test Time: 03:29:05 Front End Developer: LAUREN MEASUREMENT RESULTS: Intervals: Rate: 123 MI: 200 QRSD: 88 QT: 276 QTc: 395 Roby: P: 38 MI: 200 QRS: 73 T: 65 INTERPRETIVE STATEMENTS: Sinus tachycardia Borderline ECG Compared to ECG 09/19/2018 20:17:27 Sinus rhythm no longer present First degree AV block no longer present Electronically Signed On 10-18-18 08:07:19 SALES DEVELOPMENT DIRECTOR by Topher Segovia
[2018-10-18] MEDS ORDERED: VANCOMYCIN 1.5 GM in NA CHLORIDE 0.9% 500 ML IVPB SCH (09:00)
[2018-10-18] MEDS: ENOXAPARIN 30 MG/0.3 ML SQ SCH (09:41)
[2018-10-18] MEDS: PIPER/TAZO/NS 3.375gm 3.375 GM/100 ML BAG IVPB SCH ×2 (09:41→18:27)
[2018-10-18] MEDS ORDERED: PNEUMOCOCCAL VACCINE 0.5 ML IMVAC ONE (12:00)
[2018-10-18] MEDS ORDERED: POLYETHYL GLY 3350 17 GM/DOSE PO PRN (12:25)
--- NOTE | 2018-10-18 13:32 | RAD REPORT ---
EXAM DESCRIPTION: CT - Chest Abd Pelvis Wo Con - 10/18/2018 6:51 am CLINICAL HISTORY: CT Chest Without Intravenous Contrast CT Abdomen and Pelvis Without Intravenous Contrast COMPARISON: No relevant prior studies available. TECHNIQUE: Axial computed tomography images of the chest, abdomen and pelvis without intravenous contrast. Sagit anusha and coronal reformatted images were created and reviewed. As a consequence of the lack of intrave nous contrast, there is limited evaluation of the organs and soft tissues. This CT exam was performed using one or more of the following dose reduction techniques: Automated exposure control, adjustment of the mA and/or kV according to patient size, and/or use of iterative reconstruction technique. FINDINGS: CHEST: LUNGS: There is a large medial LEFT lower lobe 5.2 x 4.1 cm solid nodular mass present. This is highl y suspicious for a bronchogenic carcinoma of the lung. There are mild centrilobular emphysematous changes noted. This is particularly in the LEFT upper lobe . RIGHT lung is clear. PLEURAL SPACE: Unremarkable. No significant effusion. No pneumothorax. HEART: There are coronary artery calcifications noted. There are coronary artery calcifications noted. No significant pericardial effusion. ABDOMEN: LIVER: Unremarkable noncontrast appearance of the liver. GALLBLADDER AND BILE DUCTS: There are postsurgical changes from prior cholecystectomy in the gallblad angeles fossa. No ductal dilation. PANCREAS: Unremarkable. No ductal dilation. SPLEEN: Unremarkable. No splenomegaly. No splenic lesion noted. ADRENALS: There is a large RIGHT adrenal mass, low density measuring 5.6 x 3.7 cm in size. There is a LEFT adrenal mass measuring 4.3 x 3.5 cm. It is also low density. These are consistent with adrenal metastases. KIDNEYS AND URETERS: RIGHT kidney since low but is not malrotated. There is mild bilateral perinephri c stranding. There is a 2.5 mm calculus in the upper pole of the LEFT kidney. Small exophytic LEFT up per pole renal cysts are noted measuring up to 1 cm. No hydronephrosis is noted. STOMACH AND BOWEL: There is a large duodenal diverticulum in the 2nd/3rd portion. There is no evidence of diverticulitis. There is no evidence of bowel obstruction. There is no oral contrast opacifying the bowel. The cecum is low lying. There are RIGHT colonic diverticula noted. PELVIS: APPENDIX: The appendix is visualized and is normal in appearance. BLADDER: Urinary bladder is unremarkable. No stones. REPRODUCTIVE: The prostate gland is enlarged. CHEST, ABDOMEN and PELVIS: INTRAPERITONEAL SPACE: Unremarkable. No significant fluid collection. No free air. BONE/JOINTS:There are degenerative changes of the spine noted. SOFT TISSUES: There is rectus diastases of the anterior abdominal wall. 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 There are atheromatous vascular calcifications of the aortoiliac system. LYMPH NODES: There are pathologically enlarged retroperitoneal para-aortic and periaortic lymph nodes , both LEFT and RIGHT, measuring up to 2.8 cm on axial image 75/136 of series 201. Small nodes in the RIGHT retrocrural region are also noted. Several enlarged lymph nodes are identified at the root of the mesentery mearuing up to 2.9 cm on cristóbal ge 89/136 of series 201. There is stranding at the root of the mesentery. IMPRESSION: 1. There is large mdial LEFT lower lobe 5.2 x 4.1 cm solid nodular mass present. This is highly suspicious for a bronchogenic carcinoma of the lung. 2. There is a large duodenal diverticulum in thr 2nd/3rd position. 3. There is a large RIGHT adrenal mass, low density measuring 5.6 x 3.7 cm in size. There is a LEFT a drenal mass measuring 4.3 x 3.5 cm. It is also low density. These are consistent with adrenal metasta ses. 4. There are pathologically enlarged retroperitoneal para-aortic lymph nodes, both LEFT and RIGHT, me asuring up to 2.8 cm on axial image 75/136 of series 201. Small nodes in the RIGHT retrocrural region are also noted. 5. Recommend submission of prior studies for comparison for better evaluation. Electronically signed by: Juancho Martinez MD 10/18/2018 6:22 AM INSIDE SALES ACCOUNT EXECUTIVE Due to temporary technical issues with the PACS/Fluency reporting system, reports are being signed by the in house radiologist as a courtesy to ensure prompt reporting. The interpreting radiologist is f alejandraly responsible for the content of the report. ADDENDUM #1 Prior study which is a CT of the abdomen and pelvis without contrast from 09/29/[address] o f the chest from 09/16/2018 were made available. There are healing LEFT posterior rib fractures involving the 8th and 9th ribs. These were noted previ ously. 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 The maryjo LEFT lower lobe lung mass and bilateral adrenal masses with retroperitoneal and mesenteric l ymphadenopathy are all stable from the previous studies from the previous month. Electronically signed by: Juancho Martinez MD 10/18/2018 6:30 AM INSIDE SALES ACCOUNT EXECUTIVE Due to temporary technical issues with the PACS/Fluency reporting system, reports are being signed by the in house radiologist as a courtesy to ensure prompt reporting. The interpreting radiologist is f alejandraly responsible for the content of the report.
[2018-10-18] MEDS: INSULIN GLARGINE 100 UNITS/ML SQ SCH ×2 (13:46→21:53)
--- NOTE | 2018-10-18 14:21 | RAD REPORT ---
EXAM DESCRIPTION: CT - Head Brain Wo Cont - 10/18/2018 2:15 pm CLINICAL HISTORY: Transient alteration of awareness COMPARISON: February 2010 TECHNIQUE: Axial 5 mm thick images of the head were obtained without IV contrast. All CT scans are performed using dose optimization technique as appropriate and may include automated exposure control or mA/KV adjustment according to patient size. FINDINGS: No intracranial hemorrhage, mass, edema or shift of mid-line structures. No acute infarcti on changes seen. No abnormal extra-axial fluid collections. Mild to moderate atrophy and chronic isch emic changes are present. Atrophy is mildly progressive from 2009. Mastoid air cells and visualized portions of the paranasal sinuses are clear. No acute bony findings. IMPRESSION: Atrophy and chronic ischemic changes are present. No acute intracranial finding.
[2018-10-18] MEDS: ACETAMINOPHEN 500 MG TAB PO PRN (16:15)
--- NOTE | 2018-10-18 16:45 | PN ---
Date of Progress Note: 10/18/2018 Code Status: Do not resuscitate. Subjective: The patient is seen and examined. Chart reviewed and case discussed with RN. The patient's daughter at the bedside. The patient does report some abdominal discomfort and some shortness of breath. Medications: List reviewed. Code status: DNR Physical Examination: Vital Signs: Temperature 97.1, heart rate 87, blood pressure 110/53, respirations 17, and O2 of 93% on 2 L via nasal cannula. General: Awake, alert, and oriented x3, elderly male, ill appearing. CV: S1 and S2. Regular rate and rhythm. Peripheral pulses present. Respiratory: Diminished breath sounds, some rhonchi heard. No wheezing. Gastrointestinal: Abdomen is soft. Mild tenderness to palpation in the epigastric area. No rebound or guarding. Extremities: No clubbing or cyanosis. Trace pedal edema. Neurologic: Nonfocal. Cranial nerves 2 through 12 intact grossly. No focal neurological deficit. Speech is normal. Laboratory Data: Sodium 133, potassium 4.7, chloride 102, CO2 of 22, BUN 35, creatinine 2.04, and magnesium 1.3. Procalcitonin 0.77. WBC 13.6, H and H of 11.9 and 36.4. Blood culture is pending. Influenza screen is negative. CT scan of the abdomen and pelvis shows left lower lobe mass, which was present from previous, with bilateral adrenal metastases and S1 metastases. The patient also has some large diverticulum in the right, but no diverticulitis. Assessment And Plan: A 78-year-old male with, 1. Esjxe-mg-jlrfmbb kidney injury, stage 3. We will continue with IV fluids. Monitor creatinine and avoid NSAIDs. 2. 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 3. Systemic inflammatory response syndrome with developing sepsis. The patient came in with blood pressure in the low 100s, heart rate 122, temperature 101.1, elevated procalcitonin level and white blood cell count. The patient was given 1 L of bolus in the ER. We will continue with broad- spectrum IV antibiotics due to his immunocompromised status. He is on radiation therapy at this time, follows with Dr. Dumont and Dr. Hernandez. Follow up on cultures. 4. Hypotension. 5. Type 2 diabetes mellitus with hyperglycemia, non-insulin requiring. Continue with Accu-Cheks and monitor blood glucose levels. 6. Developing pneumonia, likely postobstructive secondary to lung malignancy. We will follow up on sputum cultures. 7. Gastrointestinal and deep venous thrombosis prophylaxis addressed. PLAN: We will continue monitoring overall poor prognosis due to his diffuse metastatic disease. CLIFF Voice ID: [id number] Report ID: [id number] [facility]ITALHilda
[2018-10-18] MEDS: NATEGLINIDE 60 MG TAB PO SCH (18:27)
[2018-10-18] MEDS: IPRATROPIUM BROM 0.5MG/2.5ML NEB PRN (19:43)
[2018-10-18] MEDS: ALBUTEROL 2.5 MG/3 ML NEB SOL NEB PRN (19:43)
[2018-10-18] MEDS ORDERED: LIDOCAINE 5% PATCH TOP SCH (21:00)
[2018-10-18] MEDS: ATORVASTATIN 20 MG TAB PO SCH (21:53)
[2018-10-18] MEDS: LIDOCAINE 5% PATCH TOP SCH (21:53)
[2018-10-19] MEDS: NA CHLORIDE 0.9% 1,000 ML IV SCH ×2 (01:19→12:36)
[2018-10-19] MEDS: PIPER/TAZO/NS 3.375gm 3.375 GM/100 ML BAG IVPB SCH ×3 (01:20→16:35)
[2018-10-19 06:07] LABS: Absolute Lymphocytes (CBC) 0.7 K/uL (0.7-4.9); Absolute Monocytes 0.5 K/uL (0.1-1.3); Absolute Neutrophil 14.9 K/uL (1.8-8.0); Basophils % 0.3 % (0-1.3); Hematocrit 27.9 % (39.6-49.0); Lymphocytes % 4.2 % (15.3-44.8); Monocytes % 3.3 % (3.3-12.3); RBC Red Blood Cell Count 3.48 M/uL (4.33-5.43)
[2018-10-19 06:24] LABS: Potassium 4.6 mmol/L (3.5-5.1)
[2018-10-19] MEDS: BISACODYL 10 MG RECTAL SUPP PR SCH ×2 (09:00→09:27)
[2018-10-19] MEDS: VANCOMYCIN 1.5 GM in NA CHLORIDE 0.9% 500 ML IVPB SCH (09:21)
[2018-10-19] MEDS: ENOXAPARIN 30 MG/0.3 ML SQ SCH (09:24)
[2018-10-19] MEDS: LIDOCAINE 5% PATCH TOP SCH ×2 (09:24→21:52)
[2018-10-19] MEDS: EZETIMIBE 10 MG TAB PO SCH (09:25)
[2018-10-19] MEDS: NATEGLINIDE 60 MG TAB PO SCH ×2 (09:25→16:35)
[2018-10-19] MEDS: ASPIRIN EC 81 MG TAB PO SCH (09:26)
[2018-10-19] MEDS: FINASTERIDE 5 MG TAB PO SCH (09:26)
[2018-10-19] MEDS: SENOSIDES 8.6 MG TAB PO SCH (09:26)
[2018-10-19] MEDS: MONTELUKAST 10 MG TAB PO SCH (09:26)
[2018-10-19] MEDS: PANTOPRAZOLE 40MG TABLET PO SCH (09:26)
[2018-10-19] MEDS: INSULIN -REGULAR HUMAN 50 UNIT/0.5 ML ML SQ SCH ×4 (09:27→21:00)
[2018-10-19] MEDS: INSULIN GLARGINE 100 UNITS/ML SQ SCH ×2 (09:28→21:53)
[2018-10-19] MEDS ORDERED: D50W 25 GM/50 ML SYRINGE IV PRN (14:13)
[2018-10-19] MEDS ORDERED: GLUCAGON 1 MG/VIAL IM PRN (14:13)
[2018-10-19] MEDS: NYSTATIN 500,000 UNIT/5 ML UDC PO SCH ×2 (15:53→21:52)
--- NOTE | 2018-10-19 16:17 | ECHO ---
HEIGHT: 5 ft 10 in WEIGHT: 175 lb 8 oz DATE OF STUDY: 10/19/[address]: Zaira Og MD 2-DIMENSIONAL: YES M.MODE: YES DOPPLER: YES COLOR FLOW: YES TDS: YES PORTABLE: DEFINITY: BUBBLE STUDY: DIAGNOSIS: BACTEREMIA CARDIAC HISTORY: CATHERIZATION: YES SURGERY: NO PROSTHETIC VALVE: NO PACEMAKER: NO MEASUREMENTS (cm) DIASTOLIC (NORMALS) SYSTOLIC (NORMALS) IVSd 1.3 (0.6-1.2) LA Diam 3.9 (1.9-4.0) LVEF 39% LVIDd 4.1 (3.5-5.7) LVIDs 3.4 (2.0-3.5) %FS 19% LVPWd 1.1 (0.6-1.2) Ao Diam 3.3 (2.0-3.7) 2 DIMENSIONAL ASSESSMENT: RIGHT ATRIUM: NORMAL LEFT ATRIUM: NORMAL RIGHT VENTRICLE: NORMAL LEFT VENTRICLE: NORMAL TRICUSPID VALVE: NORMAL MITRAL VALVE: NORMAL PULMONIC VALVE: NORMAL AORTIC VALVE: NORMAL PERICARDIAL EFFUSION: NONE AORTIC ROOT: NORMAL LEFT VENTRICULAR WALL MOTION: NORMAL DOPPLER/COLOR FLOW: NORMAL COMMENTS: NORMAL TWO DIMENSIONAL ECHOCARDIOGRAM WITH DOPPLER. TECHNOLOGIST: EDEN HORN
[2018-10-19] MEDS: ACETAMINOPHEN 500 MG TAB PO PRN (16:34)
--- NOTE | 2018-10-19 18:14 | CON ---
INFECTIOUS DISEASES CONSULT History Of Present Illness: The patient is a 78-year-old male. I was consulted for possible pneumon itis and fevers management. The patient has significant history of cancer of lumbar area with mets t o his lungs. The patient has had already 6 sessions of radiation after which his pain has improved s ignificantly. The patient was also found to have adenocarcinoma of his lung, stage IV. Denies any h eadache, nausea, vomiting, chest pain, abdominal pain, constipation, or diarrhea. Past Medical History: Squamous cell carcinoma of the scalp, myocardial infarction, diabetes mellitus , hyperlipidemia, hypertension, and chronic kidney disease. Social History: Tobacco positive, alcohol negative. Family History: Noncontributory. Medications: Albuterol, Tylenol, aspirin, Lipitor, Dulcolax, Lovenox, Zetia, Proscar, Lantus, Novoli n, Atrovent, lidocaine patch, Singulair, Zosyn and vancomycin. Allergies: FLU VACCINE. Review of Systems: A 10-point review was performed. Physical Examination: General: This is a 78-year-old male, lying in bed, not in any acute cardiopulmonary distress. Vital Signs: Temperature 96.9, pulse 86, respirations 16, and blood pressure 120/57. HEENT: Unremarkable. Neck: Supple. Lungs: Basal crackles. Heart: S1 and S2, regular. Abdomen: Soft, nontender. Bowel sounds present. Extremities: Trace edema. Laboratory Data: Shows WBC 16,000, hemoglobin 9, and platelets are 113. Chemistry shows sodium 137, potassium 4.6, chloride 109, bicarb 20, BUN 36, creatinine 1.83, glucose 212. Micro data shows the patient has blood cultures, which are negative for 24 hours. Chest x-ray shows no gross changes on t he medial left lung base mass, chronic interstitial lung disease pattern. CT abdomen and chest and p roro shows the patient has a large medial left lower lobe 5.2 x 4.1 cm nodular mass present and high ly suspicious of bronchogenic carcinoma of the lung, large duodenal diverticulum in second and third position. There is a large right adrenal mass, low density, measuring 5.6 x 3.7 and left adrenal mas s 4.3 x 3.5. There is a pathological enlargement of retroperitoneal para-aortic lymph nodes on both left and right, measuring up to 2.[address] shows atrophy and chronic ischemic changes. No acut e intracranial findings. Assessment And Plan: A 78-year-old male coming in with fevers and history of lung cancer and spinal cancer with multiple lymph nodes present. Continue broad-spectrum antibiotic total of 2 weeks' durat ion. This might be recurrent challenge as the patient has lung cancer, could be causing obstructive pattern and also has tumor in his abdominal and pelvic cavity, which can be also cause of his fevers. The patient is doing better on IV antibiotic. We will continue current treatment, possible switchi ng to oral on discharge. We will follow the patient closely. Thank you Dr. Og for consult. DANNA/RADHA Voice ID: [id number] Report ID: [id number]
--- NOTE | 2018-10-19 18:20 | PN ---
Date of Progress Note: 10/19/2018 Subjective: The patient is seen and examined. Chart reviewed and case discussed with RN and Dr. Guido franco with Infectious Disease. Daughter at the bedside. Treatment plan explained. All questions answ ered. The patient states he feels significantly better than when he first arrived. Medications: List reviewed. Physical Examination: Vital Signs: Temperature 96.9, heart rate 86, blood pressure 120/57, respirations 16, O2 98% on room air. General: Awake, alert, oriented x3, elderly male, ill-appearing. CV: S1 and S2. Peripheral pulses present. Regular rate and rhythm. Respiratory: Diminished breath sounds. Some rhonchi heard. No wheezing. No use of accessory muscl es. Gastrointestinal: Abdomen is soft, nontender, nondistended. Positive bowel sounds. Extremities: No clubbing, cyanosis, or edema. Neurologic: Nonfocal. Laboratory Data: Sodium 137, potassium 4.6, chloride 109, CO2 20, BUN 36, creatinine 1.83, glucose 2 12, calcium 7.6. WBC 16.2, H and H 9 and 27.9, platelets 113, neutrophils 92%. CT scan of the head personally reviewed, shows atrophy and chronic ischemic changes. No acute intracranial finding. Assessment: A 78-year-old male with, 1.Acute on chronic sepsis secondary to pneumonia and bacteremia. Blood cultures growing gram-positi ve cocci in pairs and chains. Alpha hemolytic strep. We will follow up on ID and sensitivity. Cont inue IV antibiotics broad spectrum. Infectious Disease consultation. Echocardiogram. WBC count tracy nding up. 2.Acute on chronic kidney injury, stage 3. We will continue IV fluids, improving. Monitor creatini ne. Avoid NSAIDs. 3.Stage IV adenocarcinoma of the left lower lobe of the lung with diffuse metastases to the adrenal glands and spine. Head CT scan is negative for any intracranial lesions. Dr. Laws aware of th e patient. The patient does have a positive immuno type and will be very responsive to immune therap y, which will be continued once the patient is out of the hospital. 4.Hypotension, improving. Continue IV fluids. 5.Type 2 diabetes mellitus with hyperglycemia, non-insulin requiring. The patient's blood glucose g reater than 500 yesterday. We will adjust insulin dose and sliding scale. Blood glucose levels impr sonny today at 300s. We will continue to monitor and adjust as necessary. 6.Pneumonia, likely postobstructive secondary to lung malignancy. Blood cultures are positive. 7.Bacteremia with strep. Continue IV antibiotics, and we will obtain echocardiogram. ID consultati on. The patient may need long-term IV antibiotics. We will follow up on ID and sensitivity. 8.Gastrointestinal and deep venous thrombosis prophylaxis, addressed. CLIFF Voice ID: [id number] Report ID: [id number]
[2018-10-19] MEDS: ATORVASTATIN 20 MG TAB PO SCH (21:52)
[2018-10-19] MEDS: TRAZODONE 50 MG TABLET PO PRN (21:52)
[2018-10-20] MEDS: NA CHLORIDE 0.9% 1,000 ML IV SCH ×4 (00:23→17:18)
[2018-10-20] MEDS: PIPER/TAZO/NS 3.375gm 3.375 GM/100 ML BAG IVPB SCH ×3 (00:24→17:10)
[2018-10-20] MEDS: ACETAMINOPHEN 500 MG TAB PO PRN ×2 (05:30→23:35)
[2018-10-20 06:03] LABS: Absolute Lymphocytes (CBC) 0.5 K/uL (0.7-4.9); Absolute Monocytes 0.5 K/uL (0.1-1.3); Basophils % 0.4 % (0-1.3); Eosinophils % 1.6 % (0-4.4); Hematocrit 30.9 % (39.6-49.0); MPV 7.9 fL (7.6-11.3); Monocytes % 4.1 % (3.3-12.3); RBC Red Blood Cell Count 3.81 M/uL (4.33-5.43)
[2018-10-20 06:09] LABS: Albumin 2.1 g/dL (3.4-5.0); Bilirubin Total 0.3 mg/dL (0.2-1.0); Magnesium 1.5 mg/dL (1.8-2.4); Potassium 4.5 mmol/L (3.5-5.1); Protein, Total 5.5 g/dL (6.4-8.2)
[2018-10-20] MEDS: INSULIN -REGULAR HUMAN 50 UNIT/0.5 ML ML SQ SCH ×4 (07:30→20:45)
[2018-10-20] MEDS: BISACODYL 10 MG RECTAL SUPP PR SCH (09:00)
[2018-10-20] MEDS: SENOSIDES 8.6 MG TAB PO SCH (09:00)
[2018-10-20] MEDS ORDERED: Magnesium Sulfate 2gm IVPB 2 G/50 ML BAG IV ONE (09:00)
[2018-10-20] MEDS: NYSTATIN 500,000 UNIT/5 ML UDC PO SCH ×3 (09:40→21:20)
[2018-10-20] MEDS: NATEGLINIDE 60 MG TAB PO SCH ×2 (09:41→16:30)
[2018-10-20] MEDS: LIDOCAINE 5% PATCH TOP SCH ×2 (09:41→21:20)
[2018-10-20] MEDS: EZETIMIBE 10 MG TAB PO SCH (09:41)
[2018-10-20] MEDS: PANTOPRAZOLE 40MG TABLET PO SCH (09:43)
[2018-10-20] MEDS: HYDROCODONE/APAP 7.5/325 MG TAB PO PRN ×2 (09:43→15:46)
[2018-10-20] MEDS: MONTELUKAST 10 MG TAB PO SCH (09:43)
[2018-10-20] MEDS: FINASTERIDE 5 MG TAB PO SCH (09:44)
[2018-10-20] MEDS: INSULIN GLARGINE 100 UNITS/ML SQ SCH ×2 (09:45→20:45)
[2018-10-20] MEDS: ENOXAPARIN 30 MG/0.3 ML SQ SCH (12:40)
[2018-10-20] MEDS: ASPIRIN EC 81 MG TAB PO SCH (12:40)
--- NOTE | 2018-10-20 16:17 | PN ---
Date of Progress Note: 10/20/2018 History: The patient seen and examined. Chart reviewed and case discussed with RN. Daughter at the bedside. Treatment plan explained. All questions answered. Case discussed with the infectious dis ease Dr. Cooper. The patient overall is doing better. Does complain of some back pain, requesting s tronger pain medications. Medications: List reviewed. Physical Examination: Vital Signs: Temperature 98.7, heart rate 101, blood pressure 134/66, respirations is 20, O2 99% on room air. General: Awake, alert, oriented x3. Slightly ill appearing male, elderly. CV: S1, S2. Regular rate and rhythm. Peripheral pulses present. Respiratory: Moving air well bilaterally. No wheezing. Gastrointestinal: Mild tenderness to palpation. Otherwise, no rebound, guarding, or rigidity. Ben l sounds positive. Extremities: No clubbing, cyanosis. Trace edema. Neurologic: Nonfocal. Musculoskeletal: Tenderness to palpation in the lower sacral spine. Laboratory Data: Sodium 139, potassium 4.5, chloride 108, CO2 24, BUN 29, creatinine 1.57, glucose 1 12, calcium 7.7, magnesium 1.5, albumin 2.1. WBC 12.3, H and H 10.2 and 30.9, platelets 126, neutrop hils 89.9%. Blood cultures showing gram-positive cocci in pairs and chains. Alpha-hemolytic strep, possibly skin contaminant. Occult blood pending. Echocardiogram; EF is 39%. No valvular abnormalit ies seen. Assessment And Plan: A 78-year-old male with: 1.Acute on chronic kidney injury, stage 3. Continue with IV fluids, improved. Monitor creatinine. Avoid NSAIDs. 2.Sepsis, secondary to pneumonia and bacteremia. Blood cultures growing gram-positive cocci in pair s and chains, likely contaminant. Recommended 2 weeks of antibiotics total. 3.Echocardiogram. No significant abnormalities. EF is low, however. 4.Stage IV adenocarcinoma of the left lower lobe of the lung with diffuse metastasis in the adrenal glands and spine. Will be receiving immunotherapy as outpatient. 5.Hypertension, improved. 6.Type 2 diabetes mellitus with hyperglycemia, non-insulin requiring. Continue sliding scale insuli n and monitor glucose levels. 7.Pneumonia likely postobstructive, secondary to lung malignancy. 8.Bacteremia, likely contaminant. We will wait for final results. 9.Abdominal pain, may be related to metastatic disease. Plan: DVT and GI prophylaxes addressed. We will continue with antibiotics for now. /RADHA Voice ID: [id number] Report ID: [id number]
[2018-10-20] MEDS ORDERED: NA CHLORIDE 0.9% 1,000 ML IV ONE ×2 (16:19→20:49)
[2018-10-20] MEDS: ATORVASTATIN 20 MG TAB PO SCH (21:20)
[2018-10-20] MEDS: VANCOMYCIN 1.5 GM in NA CHLORIDE 0.9% 500 ML IVPB SCH (23:36)
[2018-10-21] MEDS: HYDROCODONE/APAP 7.5/325 MG TAB PO PRN ×3 (00:37→17:55)
[2018-10-21] MEDS: PIPER/TAZO/NS 3.375gm 3.375 GM/100 ML BAG IVPB SCH ×3 (00:37→16:48)
[2018-10-21] MEDS: TAMSULOSIN 0.4 MG SR CAP PO SCH ×2 (00:37→21:32)
[2018-10-21] MEDS: NA CHLORIDE 0.9% 1,000 ML IV SCH ×3 (04:35→21:34)
[2018-10-21 05:02] LABS: Absolute Lymphocytes (CBC) 0.9 K/uL (0.7-4.9); Absolute Monocytes 0.6 K/uL (0.1-1.3); Absolute Neutrophil 7.9 K/uL (1.8-8.0); Basophils % 0.3 % (0-1.3); Eosinophils % 2.4 % (0-4.4); Hematocrit 29.3 % (39.6-49.0); MPV 7.3 fL (7.6-11.3); Monocytes % 6.3 % (3.3-12.3); RBC Red Blood Cell Count 3.63 M/uL (4.33-5.43)
[2018-10-21 05:24] LABS: Albumin 1.9 g/dL (3.4-5.0); Bilirubin Total 0.6 mg/dL (0.2-1.0); Potassium 4.8 mmol/L (3.5-5.1); Protein, Total 5.2 g/dL (6.4-8.2)
[2018-10-21] MEDS: NATEGLINIDE 60 MG TAB PO SCH (07:30)
[2018-10-21] MEDS: INSULIN -REGULAR HUMAN 50 UNIT/0.5 ML ML SQ SCH ×4 (07:30→21:33)
[2018-10-21] MEDS: NYSTATIN 500,000 UNIT/5 ML UDC PO SCH ×3 (09:00→21:33)
[2018-10-21] MEDS: BISACODYL 10 MG RECTAL SUPP PR SCH (09:00)
[2018-10-21] MEDS: INSULIN GLARGINE 100 UNITS/ML SQ SCH (09:00)
[2018-10-21] MEDS: SENOSIDES 8.6 MG TAB PO SCH (09:00)
[2018-10-21] MEDS ORDERED: D50W 25 GM/50 ML SYRINGE IV PRN (09:32)
[2018-10-21] MEDS ORDERED: GLUCAGON 1 MG/VIAL IM PRN (09:32)
[2018-10-21] MEDS: LIDOCAINE 5% PATCH TOP SCH ×2 (10:37→21:33)
[2018-10-21] MEDS: ENOXAPARIN 30 MG/0.3 ML SQ SCH (10:38)
[2018-10-21] MEDS: MONTELUKAST 10 MG TAB PO SCH (10:41)
[2018-10-21] MEDS: EZETIMIBE 10 MG TAB PO SCH (10:41)
[2018-10-21] MEDS: PANTOPRAZOLE 40MG TABLET PO SCH (10:41)
[2018-10-21] MEDS: FINASTERIDE 5 MG TAB PO SCH (10:41)
[2018-10-21] MEDS: ASPIRIN EC 81 MG TAB PO SCH (10:42)
[2018-10-21] MEDS: ONDANSETRON 4 MG/2 ML VIAL IV PRN (11:00)
[2018-10-21] MEDS: ACETAMINOPHEN 500 MG TAB PO PRN ×2 (13:50→21:32)
--- NOTE | 2018-10-21 14:17 | RAD REPORT ---
EXAM DESCRIPTION: CT - Abdomen Pelvis Wo Contrast - 10/21/2018 1:27 pm CLINICAL HISTORY: Abdominal pain COMPARISON: CT September 29 TECHNIQUE: Axial [address] imaging of the abdomen and pelvis was performed without IV contrast. No IV contrast was given because of allergy, abnormal renal function, patient refusal or physician re quest. Oral contrast was given. All CT scans are performed using dose optimization technique as appropriate and may include automated exposure control or mA/KV adjustment according to patient size. FINDINGS: A 5 centimeter rounded mass remains present in the medial left lung base. Only a trace alvaro unt of pleural fluid remains. No new liver or spleen finding. No acute pancreatic process. Prominent vessels are seen in the upper abdomen. Gallbladder is absent. No biliary tree dilatation. No hydronephrosis or suspicious renal mass. Bilateral 5 centimeter adrenal masses are present. Isode nse renal masses and pyelonephritis cannot be excluded in the absence of IV contrast. The urinary obdulia dder is without significant finding. No dilated bowel loops or bowel wall thickening. No free air, free fluid or pneumatosis. Multiple scott iably sized lymph nodes are seen along the gastrohepatic ligament and in the periportal/peripancreati c region. There is abnormal iliac chain lymphadenopathy near the renal vasculature. Largest lymph nod e is 3.3 x 1.6 cm. No omental thickening. Small bilateral fat filled inguinal hernias are present. No omental thickening . Air density in the left abdomen subcutaneous fat is presumed to be medication injection. Lytic lesion again noted in the left S1 lamina. No new pathologic bone process seen. Partially healed posterior left rib fracture noted. Set IMPRESSION: No bowel obstruction, free air or surgically emergent finding. No acute or GI process identifiable. Assessment is limited in the absence of IV contrast. Approximately 5 centimeter mass in the posteromedial left lung base. Pleural effusion seen September 29 has almost fully resolved. Bilateral large adrenal masses and numerous abnormal lymph nodes in the upper abdomen. Full assessment is limited is the absence of IV contrast.
--- NOTE | 2018-10-21 16:16 | PN ---
Date of Progress Note: 10/21/2018 History Of Present Illness: The patient is seen and examined. Chart reviewed and case discussed lj bynum RN. The patient seems to have deteriorated overnight. Blood sugar levels also low in the 50s, ini tially were in the 500s. The patient is reporting some chills and fever 101.3 yesterday and complain ing of worsening abdominal pain and nausea, was not able to tolerate his breakfast. Medication list reviewed. Physical Examination: Vital Signs: Temperature 98.4, heart rate 98, blood pressure 133/61, respirations 20, O2 of 97% on r oom air. T-max was 101.3 at 12:45 a.m. General: Awake, alert, oriented x3. Elderly male, ill appearing. CV: S1 and S2. Peripheral pulses present. Regular rate and rhythm. Respiratory: Diminished breath sounds. No significant wheezing, rhonchi, or crackles. No stridor. Gastrointestinal: Abdomen is soft. Mild tenderness to palpation in the right upper quadrant. No re bound or guarding. Bowel sounds positive. Extremities: No clubbing, cyanosis. The patient does have some peripheral edema. Neurologic: Nonfocal. Laboratory Data: Sodium 138, potassium 4.8, chloride 108, CO2 of 23, BUN 19, creatinine 1.59, glucos e 73. Lactate 3.4 yesterday evening, improved to 1.8 on recheck. Calcium 7.6, albumin 1.9. WBC 9.6 , H and H 9.6 and 29.3, platelets 111, neutrophils 82%. No bands. No growth from cultures. Assessment And Plan: A 78-year-old male with. 1.Sepsis secondary to pneumonia and bacteremia. However, blood cultures, likely contaminant. Appre ciate ID recommendations. The patient will need a total of 2 weeks of antibiotics. We will likely s witch to oral on discharge. The patient again had elevated lactate, spiked a fever of 101.3. Sepsis secondary to pneumonia. 2.Acute on chronic kidney injury stage III. Creatinine has improved. We will continue with IV flui ds. Avoid NSAIDs and nephrotoxins. 3.Stage IV adenocarcinoma of the left lower lobe of the lung with diffuse metastases in the adrenal gland, spine and also has mesenteric lymph nodes, may possibly have omental metastases. Scheduled fo r immunotherapy as an outpatient. 4.Essential hypertension, improved. 5.Type 2 diabetes mellitus with hyperglycemia, non-insulin requiring. We will continue to monitor s liding scale insulin. The patient did have some hypoglycemia. We will adjust insulin sliding scale. 6.Pneumonia, likely postobstructive secondary to lung malignancy. Continue antibiotics. 7.Abdominal pain, likely due to metastatic disease. We will check CT scan of the abdomen and pelvis . 8.GI and DVT prophylaxis addressed. /RADHA Voice ID: [id number] Report ID: [id number]
[2018-10-21] MEDS: IPRATROPIUM BROM 0.5MG/2.5ML NEB PRN (18:07)
[2018-10-21] MEDS: ALBUTEROL 2.5 MG/3 ML NEB SOL NEB PRN (18:07)
[2018-10-21] MEDS: ATORVASTATIN 20 MG TAB PO SCH (21:32)
[2018-10-22] MEDS: PIPER/TAZO/NS 3.375gm 3.375 GM/100 ML BAG IVPB SCH ×3 (00:45→16:19)
[2018-10-22] MEDS: HYDROCODONE/APAP 7.5/325 MG TAB PO PRN ×3 (05:44→23:09)
[2018-10-22] MEDS ORDERED: ACETAMINOPHEN 325 MG TABLET PO ONE (06:32)
[2018-10-22 08:11] LABS: Absolute Lymphocytes (CBC) 0.8 K/uL (0.7-4.9); Absolute Monocytes 0.4 K/uL (0.1-1.3); Absolute Neutrophil 7.6 K/uL (1.8-8.0); Basophils % 0.3 % (0-1.3); Eosinophils % 3.7 % (0-4.4); Hematocrit 26.6 % (39.6-49.0); Lymphocytes % 8.5 % (15.3-44.8); MPV 7.2 fL (7.6-11.3); Monocytes % 4.9 % (3.3-12.3); RBC Red Blood Cell Count 3.31 M/uL (4.33-5.43)
[2018-10-22 08:29] LABS: Albumin 1.9 g/dL (3.4-5.0); Bilirubin Total 0.5 mg/dL (0.2-1.0); Potassium 4.2 mmol/L (3.5-5.1); Protein, Total 5.4 g/dL (6.4-8.2)
[2018-10-22] MEDS: INSULIN -REGULAR HUMAN 50 UNIT/0.5 ML ML SQ SCH ×4 (09:08→21:12)
[2018-10-22] MEDS: INSULIN GLARGINE 100 UNITS/ML SQ SCH (09:12)
[2018-10-22] MEDS: PANTOPRAZOLE 40MG TABLET PO SCH (09:13)
[2018-10-22] MEDS: ENOXAPARIN 30 MG/0.3 ML SQ SCH (09:13)
[2018-10-22] MEDS: ASPIRIN EC 81 MG TAB PO SCH (09:13)
[2018-10-22] MEDS: VANCOMYCIN 1.5 GM in NA CHLORIDE 0.9% 500 ML IVPB SCH (09:14)
[2018-10-22] MEDS: FINASTERIDE 5 MG TAB PO SCH (09:14)
[2018-10-22] MEDS: NYSTATIN 500,000 UNIT/5 ML UDC PO SCH ×3 (09:14→21:13)
[2018-10-22] MEDS: MONTELUKAST 10 MG TAB PO SCH (09:14)
[2018-10-22] MEDS: LIDOCAINE 5% PATCH TOP SCH ×2 (09:14→21:13)
[2018-10-22] MEDS: EZETIMIBE 10 MG TAB PO SCH (09:17)
[2018-10-22] MEDS: NA CHLORIDE 0.9% 1,000 ML IV SCH ×3 (09:41→20:35)
--- NOTE | 2018-10-22 09:51 | RAD REPORT ---
EXAM DESCRIPTION: RAD - Chest Single View - 10/22/2018 9:11 am CLINICAL HISTORY: Pneumonia, shortness of breath COMPARISON: October 18 TECHNIQUE: AP portable chest image was obtained 0903 hours . FINDINGS: No new or progressive lung parenchymal process. Patient has a known mass in the medial lef t lung base. No failure or volume overload. Heart and vasculature are normal. No measurable pleural e ffusion and no pneumothorax. No acute bony abnormality seen. No acute aortic findings suspected. IMPRESSION: No new or progressive lung parenchymal process. No change to the medial left lung base mass.
[2018-10-22] MEDS: ACETAMINOPHEN 500 MG TAB PO PRN (11:28)
[2018-10-22] MEDS: LACTOBACILLUS/ACIDOPHILUS TAB PO SCH ×2 (13:08→21:12)
[2018-10-22] MEDS: ALBUTEROL 2.5 MG/3 ML NEB SOL NEB PRN (13:15)
[2018-10-22] MEDS: IPRATROPIUM BROM 0.5MG/2.5ML NEB PRN (13:15)
--- NOTE | 2018-10-22 15:57 | PN ---
Date of Progress Note: 10/22/2018 Subjective: The patient was seen and examined. Chart reviewed and case discussed with RN. The melita ent had a temperature today of 102.3 early this morning. Does report some generalized malaise, not f eeling too well. Medications: List reviewed. Physical Examination: Vital signs: Temperature 102.9, heart rate 113, blood pressure 109/55, respirations 20, O2 93% on ro om air. General: Awake, alert, oriented x3. Elderly male, ill appearing. CV: S1 and S2. Sinus tachycardia. Peripheral pulses present. Respiratory: Moving air well bilaterally. No wheezing or stridor. Gastrointestinal: Abdomen is soft, nontender, nondistended. Positive bowel sounds. Extremities: No clubbing, cyanosis, or edema. Neurologic: Nonfocal. Laboratory Data: Sodium 134, potassium 4.2, chloride 104, CO2 24, BUN 14, creatinine 1.64, glucose 1 33, calcium 7.6, AST 15, ALT 16, albumin 1.9. WBC 9.2, H and H 8.8 and 26.6, platelets 104, neutroph ils 82%. Occult blood was negative. Blood cultures show alpha hemolytic strep, likely skin contamin ant. C. diff assay is pending. Chest x-ray shows no new or progressive lung parenchymal process. N o change in the medial left lung base mass, personally reviewed. CT scan of the abdomen and pelvis f rom yesterday showed no bowel obstruction, free air or surgically emergent finding. No acute or G I process identifiable. A 5 cm mass in the posterior medial left lung base, pleural effusion seen, J anuary 19, has almost fully resolved. Bilateral large renal masses and numerous abnormal lymph nodes in the upper abdomen. Assessment And Plan: A 78-year-old male with, 1.Sepsis secondary to pneumonia. The patient is still having recurrent high fevers, unclear etiolog y other than pneumonia, which is improving clinically. We will repeat blood cultures. We will discu ss case with Infectious Disease. Repeat chest x-ray. 2.Acute on chronic kidney injury, stage 3. Creatinine has improved to bump up slightly today, [facility], around baseline. We will continue with IV fluids. Avoid any NSAIDs. 3.Stage IV adenocarcinoma of the left lower lobe of the lung with diffuse metastases in the adrenal glands, spine S1 and mesenteric lymph nodes. No omental metastases seen on CT scan. The patient to be seen by Oncology as outpatient. He will be receiving immunotherapy. 4.Essential hypertension, improved. 5.Diabetes mellitus type 2 with hyperglycemia, non-insulin requiring. We will continue sliding scal e due to his glucose levels. Insulin has been adjusted. 6.Pneumonia, likely postobstructive. Continue antibiotics. 7.Abdominal pain, improved. CT scan is negative. 8.Diarrhea, likely due to antibiotics. We will start on probiotics. We will rule out Clostridium d ifficile. DVT prophylaxis addressed. 9.Recurrent fevers. PLAN: Repeat blood cultures. Touch base with ID regarding antibiotic course. Discharge once afebri le greater than 24 hours. /RADHA Voice ID: [id number] Report ID: [id number]
[2018-10-22] MEDS: ONDANSETRON 4 MG/2 ML VIAL IV PRN (16:16)
[2018-10-22 19:23] LABS: Urine Appearance CLOUDY; Urine Bilirubin NEGATIVE (NEG); Urine Blood TRACE (NEG); Urine Color YELLOW; Urine Glucose NEGATIVE (NEG); Urine Protein 2+ (NEG); Urine Specific Gravity 1.015 (1.005-1.030); Urine Urobilinogen 0.2 mg/dL (0.2-1.0); Urine pH 5.5 (5.0-7.0)
[2018-10-22 19:38] LABS: Urine Microscopic Reflex ORDER UMIC
[2018-10-22 19:59] LABS: Urine Amorphous Sediment 2+ /HPF (NONE SEEN); Urine Bacteria <20 /HPF (NONE SEEN); Urine Coarse Granular Casts >10 /LPF (NONE SEEN); Urine Culture Reflex Order NOT NEEDED; Urine RBC <5 /HPF (NONE SEEN)
[2018-10-22] MEDS: ATORVASTATIN 20 MG TAB PO SCH (21:12)
[2018-10-22] MEDS: TAMSULOSIN 0.4 MG SR CAP PO SCH (21:13)
[2018-10-23] MEDS: PIPER/TAZO/NS 3.375gm 3.375 GM/100 ML BAG IVPB SCH ×3 (00:03→16:37)
[2018-10-23] MEDS: ACETAMINOPHEN 500 MG TAB PO PRN ×3 (05:10→18:40)
[2018-10-23] MEDS: NA CHLORIDE 0.9% 1,000 ML IV SCH ×4 (05:12→21:49)
[2018-10-23] MEDS: INSULIN -REGULAR HUMAN 50 UNIT/0.5 ML ML SQ SCH ×4 (07:30→21:49)
[2018-10-23] MEDS: EZETIMIBE 10 MG TAB PO SCH (08:33)
[2018-10-23] MEDS: FINASTERIDE 5 MG TAB PO SCH (08:33)
[2018-10-23] MEDS: LACTOBACILLUS/ACIDOPHILUS TAB PO SCH ×3 (08:33→21:48)
[2018-10-23] MEDS: PANTOPRAZOLE 40MG TABLET PO SCH (08:34)
[2018-10-23] MEDS: NYSTATIN 500,000 UNIT/5 ML UDC PO SCH ×3 (08:34→21:47)
[2018-10-23] MEDS: MONTELUKAST 10 MG TAB PO SCH (08:34)
[2018-10-23] MEDS: ASPIRIN EC 81 MG TAB PO SCH (08:34)
[2018-10-23] MEDS: LIDOCAINE 5% PATCH TOP SCH ×2 (08:36→21:47)
[2018-10-23] MEDS: INSULIN GLARGINE 100 UNITS/ML SQ SCH (08:37)
[2018-10-23] MEDS: ENOXAPARIN 30 MG/0.3 ML SQ SCH (09:00)
[2018-10-23] MEDS: ALBUTEROL 2.5 MG/3 ML NEB SOL NEB PRN ×2 (10:12→18:35)
[2018-10-23] MEDS: IPRATROPIUM BROM 0.5MG/2.5ML NEB PRN ×2 (10:12→18:35)
[2018-10-23] MEDS ORDERED: LOPERAMIDE HCL 2 MG CAPSULE PO PRN (13:31)
[2018-10-23] MEDS: HYDROCODONE/APAP 7.5/325 MG TAB PO PRN (13:59)
--- NOTE | 2018-10-23 17:01 | P.PN ---
Subjective Date of Service: 10/23/18 Chief Complaint: acute bronchitis Patient seen and examined at bedside with RN. Chart reviewed. Case discussed with pulmonology at this time. Patient states that he continues to have some diarrheal episode overnight. No other complaints to offer at this time. Does feel better than before. Review of Systems 10-point ROS is otherwise unremarkable Physical Examination - Vital Signs Temperature: 100.8 F Blood Pressure: 115/56 Pulse: 116 Respirations: 18 Pulse Ox (%): 92 - Physical Exam General: Alert, In no apparent distress HEENT: Atraumatic, PERRLA, EOMI Neck: Supple, JVD not distended Respiratory: Normal air movement, Expiratory wheezes, Inspiratory wheezes Cardiovascular: Regular rate/rhythm, Normal S1 S2 Gastrointestinal: Normal bowel sounds, No tenderness Musculoskeletal: No tenderness Integumentary: No rashes Neurological: Normal speech, Normal tone, Normal affect Lymphatics: No axilla or inguinal lymphadenopathy - Studies Microbiology Data (last 24 hrs): 10/18/18 03:00 Blood - Blood Aerobic Blood Culture - Final No growth in 5 days. 10/18/18 03:00 Blood - Blood Anaerobic Blood Culture - Final No growth in 5 days. Medications List Reviewed: Yes Assessment And Plan - Plan Assessment/Plan: 1. Sepsis Most Likely secondary to Obstructive pneumonia secondary to Lung Mass -The patient is still having recurrent high fevers, unclear etiology other than Obstructive pneumonia, which is improving clinically. -Continue with IV abx at this time -Pending culture will f.u at this time. 2. Acute on chronic kidney injury, stage 3. -BUN and creatinine improving today. 3. 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 4. Essential hypertension, improved. 5. Diabetes mellitus type 2 with hyperglycemia, non-insulin requiring. -We will continue sliding scale due to his glucose levels. Insulin has been adjusted 6. Diarrhea, likely due to Radiation and Abx. -We will start on probiotics. -Clostridium difficile negative at this time. PLAN: Pending clinical improvement at this time. Repeat blood cultures. Discharge once afebrile greater than 24 hours. Discharge Plan: Home Plan to discharge in: 48 Hours - Code Status/Comfort Care Code Status Assessed: Yes Critical Care: No
--- NOTE | 2018-10-23 19:51 | PN ---
Subjective: The patient is lying in bed. Poor appetite, having loose motions. Denies any headache, nausea, vomiting, chest pain, abdominal pain, constipation, or diarrhea. C. diff is negative. Objective: Vital signs: Temperature 99.3, T-max of 101, pulse 114, respiration 18, blood pressure 1 58/69. Lungs: Basal crackles. Heart: S1, S2. Regular. Abdomen: Soft, nontender. Bowel sounds present. Extremity: No edema. Laboratory Data: WBC 9.2, hemoglobin 8.8, platelets are 104. Chemistry shows sodium 134, potassium 4.2, chloride 104, bicarb 24, BUN 14, creatinine 1.64, glucose is 133. Blood cultures from 10/22 joyce ws no growth for 24 hours. Currently on Zosyn and vancomycin. Assessment And Plan: Diarrhea, possibly medication versus radiation therapy. We will get stool for WBC. Start the patient on Imodium. Continue antibiotic and supportive care. We will follow the pat ient as needed. The patient with lung cancer with METS. Prognosis guarded. Continue antibiotic and supportive care. NF/MODL Voice ID: [id number] Report ID: [id number]
[2018-10-23] MEDS: TAMSULOSIN 0.4 MG SR CAP PO SCH (21:48)
[2018-10-23] MEDS: VANCOMYCIN 1.5 GM in NA CHLORIDE 0.9% 500 ML IVPB SCH (21:48)
[2018-10-23] MEDS: ATORVASTATIN 20 MG TAB PO SCH (21:48)
[2018-10-23] MEDS: TRAZODONE 50 MG TABLET PO PRN (21:49)
[2018-10-24] MEDS: PIPER/TAZO/NS 3.375gm 3.375 GM/100 ML BAG IVPB SCH ×3 (00:33→17:07)
[2018-10-24] MEDS: ACETAMINOPHEN 500 MG TAB PO PRN ×4 (00:33→14:37)
[2018-10-24] MEDS: INSULIN -REGULAR HUMAN 50 UNIT/0.5 ML ML SQ SCH ×4 (07:30→21:00)
[2018-10-24] MEDS: ENOXAPARIN 30 MG/0.3 ML SQ SCH (09:00)
[2018-10-24] MEDS: INSULIN GLARGINE 100 UNITS/ML SQ SCH (09:30)
[2018-10-24] MEDS: EZETIMIBE 10 MG TAB PO SCH (09:42)
[2018-10-24] MEDS: PANTOPRAZOLE 40MG TABLET PO SCH (09:42)
[2018-10-24] MEDS: LACTOBACILLUS/ACIDOPHILUS TAB PO SCH ×3 (09:42→20:55)
[2018-10-24] MEDS: MONTELUKAST 10 MG TAB PO SCH (09:43)
[2018-10-24] MEDS: FINASTERIDE 5 MG TAB PO SCH (09:43)
[2018-10-24] MEDS: NYSTATIN 500,000 UNIT/5 ML UDC PO SCH ×3 (09:44→21:18)
[2018-10-24] MEDS: LIDOCAINE 5% PATCH TOP SCH ×2 (09:44→20:58)
[2018-10-24] MEDS: ASPIRIN EC 81 MG TAB PO SCH (11:11)
[2018-10-24 12:25] LABS: Absolute Lymphocytes (CBC) 0.6 K/uL (0.7-4.9); Absolute Monocytes 0.3 K/uL (0.1-1.3); Absolute Neutrophil 3.6 K/uL (1.8-8.0); Basophils % 0.4 % (0-1.3); Eosinophils % 6.5 % (0-4.4); Hematocrit 24.1 % (39.6-49.0); Lymphocytes % 11.6 % (15.3-44.8); MPV 7.6 fL (7.6-11.3); Monocytes % 6.5 % (3.3-12.3)
[2018-10-24 12:39] LABS: Albumin 1.6 g/dL (3.4-5.0); Bilirubin Total 0.3 mg/dL (0.2-1.0); Protein, Total 5.1 g/dL (6.4-8.2)
[2018-10-24] MEDS: NA CHLORIDE 0.9% 1,000 ML IV SCH ×2 (13:14→22:35)
--- NOTE | 2018-10-24 15:28 | PN ---
Subjective: The patient is lying in bed, continuing to have low-grade fevers. Denies any headache, nausea, vomiting, chest pain, abdominal pain, constipation, no diarrhea. Objective: Vital Signs: Temperature 100, pulse 99, respirations 18, and blood pressure 137/63. Lungs: Basal crackles. Heart: S1 and S2, regular. Abdomen: Soft, nontender. Bowel sounds present. Extremities: No edema. Laboratory Data: No labs are available for today. Blood cultures are negative for 24 hours. Assessment And Plan: Fever, possibly secondary to inflammatory process, immune versus infectious, cu rrently being treated with broad-spectrum antibiotic, Zosyn and vancomycin. No new infiltrate on yazan st x-ray from 10/22. Continue antibiotic and supportive care. We will follow the patient as needed. Stool for wbc is pending. NF/MODL Voice ID: [id number] Report ID: [id number]
--- NOTE | 2018-10-24 16:42 | P.PN ---
Subjective Date of Service: 10/24/18 Chief Complaint: acute bronchitis Patient seen and examined at bedside with RN. Chart reviewed. Case discussed with pulmonology at this time. Patient states that he continues to have some diarrheal episode overnight however has improved. No other complaints to offer at this time. Does feel better than before. Review of Systems 10-point ROS is otherwise unremarkable Physical Examination - Vital Signs Temperature: 100.9 F Blood Pressure: 131/61 Pulse: 102 Respirations: 20 Pulse Ox (%): 96 - Physical Exam General: Alert, In no apparent distress HEENT: Atraumatic, PERRLA, EOMI Neck: Supple, JVD not distended Respiratory: Clear to auscultation bilaterally, Normal air movement Cardiovascular: Regular rate/rhythm, Normal S1 S2 Gastrointestinal: Normal bowel sounds, No tenderness Musculoskeletal: No tenderness Integumentary: No rashes Neurological: Normal speech, Normal tone, Normal affect Lymphatics: No axilla or inguinal lymphadenopathy - Studies Medications List Reviewed: Yes Assessment And Plan - Plan Assessment/Plan: 1. Sepsis Most Likely secondary to Obstructive pneumonia secondary to Lung Mass -The patient is still having recurrent high fevers the last fever of 100.6, unclear etiology other than Obstructive pneumonia, which is improving clinically. -Continue with IV abx at this time -Pending culture will f.u at this time. 2. Acute on chronic kidney injury, stage 3. -BUN and creatinine improving today. 3. 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 4. Essential hypertension, improved. 5. Diabetes mellitus type 2 with hyperglycemia, non-insulin requiring. -We will continue sliding scale due to his glucose levels. Insulin has been adjusted 6. Diarrhea, likely due to Radiation and Abx. -We will start on probiotics. -Clostridium difficile negative at this time. PLAN: Pending clinical improvement at this time. Repeat blood cultures pending. Discharge once afebrile greater than 24 hours. Discharge Plan: Home Plan to discharge in: 48 Hours - Code Status/Comfort Care Code Status Assessed: Yes Critical Care: No
[2018-10-24] MEDS ORDERED: Magnesium Sulfate 2gm IVPB 2 G/50 ML BAG IV ONE (17:00)
[2018-10-24] MEDS: ONDANSETRON 4 MG/2 ML VIAL IV PRN (17:44)
[2018-10-24] MEDS: HYDROCODONE/APAP 7.5/325 MG TAB PO PRN (20:52)
[2018-10-24] MEDS: TAMSULOSIN 0.4 MG SR CAP PO SCH (20:54)
[2018-10-24] MEDS: ATORVASTATIN 20 MG TAB PO SCH (20:55)
[2018-10-25] MEDS ORDERED: MAGNESIUM SULFATE 1 gm IVPB 1 GM/100 ML BAG IV ONE (00:13)
[2018-10-25] MEDS: PIPER/TAZO/NS 3.375gm 3.375 GM/100 ML BAG IVPB SCH ×3 (00:49→16:57)
[2018-10-25] MEDS: NA CHLORIDE 0.9% 1,000 ML IV SCH ×3 (00:50→18:35)
[2018-10-25] MEDS: HYDROCODONE/APAP 7.5/325 MG TAB PO PRN (02:18)
[2018-10-25] MEDS: ACETAMINOPHEN 500 MG TAB PO PRN (06:51)
[2018-10-25] MEDS: INSULIN -REGULAR HUMAN 50 UNIT/0.5 ML ML SQ SCH ×4 (07:30→21:00)
[2018-10-25 08:51] LABS: Magnesium 1.9 mg/dL (1.8-2.4)
[2018-10-25] MEDS: NYSTATIN 500,000 UNIT/5 ML UDC PO SCH ×3 (09:00→21:35)
[2018-10-25] MEDS: EZETIMIBE 10 MG TAB PO SCH (09:00)
[2018-10-25] MEDS: VANCOMYCIN 1.5 GM in NA CHLORIDE 0.9% 500 ML IVPB SCH (09:00)
[2018-10-25] MEDS: INSULIN GLARGINE 100 UNITS/ML SQ SCH (09:43)
[2018-10-25] MEDS: MONTELUKAST 10 MG TAB PO SCH (09:44)
[2018-10-25] MEDS: FINASTERIDE 5 MG TAB PO SCH (09:44)
[2018-10-25] MEDS: PANTOPRAZOLE 40MG TABLET PO SCH (09:45)
[2018-10-25] MEDS: ASPIRIN EC 81 MG TAB PO SCH (09:45)
[2018-10-25] MEDS: LACTOBACILLUS/ACIDOPHILUS TAB PO SCH ×3 (09:45→21:35)
[2018-10-25] MEDS: LIDOCAINE 5% PATCH TOP SCH ×2 (09:45→21:36)
[2018-10-25 12:30] LABS: Absolute Lymphocytes (CBC) 0.7 K/uL (0.7-4.9); Absolute Monocytes 0.3 K/uL (0.1-1.3); Absolute Neutrophil 3.9 K/uL (1.8-8.0); Basophils % 0.4 % (0-1.3); Eosinophils % 5.8 % (0-4.4); Hematocrit 25.8 % (39.6-49.0); Lymphocytes % 13.7 % (15.3-44.8); MPV 7.7 fL (7.6-11.3); Monocytes % 5.5 % (3.3-12.3); RBC Red Blood Cell Count 3.25 M/uL (4.33-5.43)
[2018-10-25 12:47] LABS: Albumin 1.8 g/dL (3.4-5.0); Bilirubin Total 0.4 mg/dL (0.2-1.0); Protein, Total 5.5 g/dL (6.4-8.2)
[2018-10-25] MEDS: TRAMADOL HCL 50 MG TAB PO PRN (14:51)
--- NOTE | 2018-10-25 15:39 | P.PN ---
Subjective Date of Service: 10/25/18 Chief Complaint: acute bronchitis Patient seen and examined at bedside with RN. Chart reviewed. Case discussed with pulmonology at this time. Patient states that he continues to have some diarrheal episode overnight however has improved. No other complaints to offer at this time. Does feel better than before. Review of Systems 10-point ROS is otherwise unremarkable Physical Examination - Vital Signs Temperature: 101.8 F Blood Pressure: 168/72 Pulse: 107 Respirations: 20 Pulse Ox (%): 92 - Physical Exam General: Alert, In no apparent distress HEENT: Atraumatic, PERRLA, EOMI Neck: Supple, JVD not distended Respiratory: Clear to auscultation bilaterally, Normal air movement Cardiovascular: Regular rate/rhythm, Normal S1 S2 Gastrointestinal: Normal bowel sounds, No tenderness Musculoskeletal: No tenderness Integumentary: No rashes Neurological: Normal speech, Normal tone, Normal affect Lymphatics: No axilla or inguinal lymphadenopathy - Studies Medications List Reviewed: Yes Assessment And Plan - Plan Assessment/Plan: 1. Sepsis Most Likely secondary to Obstructive pneumonia secondary to Lung Mass -The patient is still having recurrent high fevers the last fever of 101.6, unclear etiology other than Obstructive pneumonia, which is improving clinically. -Continue with IV abx at this time. Vanc and zosyn -Pending culture will f.u at this time. 2. Acute on chronic kidney injury, stage 3. -BUN and creatinine improving today. 3. 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 4. Essential hypertension, improved. 5. Diabetes mellitus type 2 with hyperglycemia, non-insulin requiring. -We will continue sliding scale due to his glucose levels. Insulin has been adjusted 6. Diarrhea, likely due to Radiation and Abx. -We will start on probiotics. -Clostridium difficile negative at this time. PLAN: Pending clinical improvement at this time. Repeat blood cultures pending. Discharge once afebrile greater than 24 hours. Discharge Plan: Home Plan to discharge in: 48 Hours - Code Status/Comfort Care Code Status Assessed: Yes Critical Care: No
[2018-10-25] MEDS: ONDANSETRON 4 MG/2 ML VIAL IV PRN (17:18)
[2018-10-25] MEDS: TAMSULOSIN 0.4 MG SR CAP PO SCH (21:35)
[2018-10-25] MEDS: ATORVASTATIN 20 MG TAB PO SCH (21:35)
[2018-10-26] MEDS: PIPER/TAZO/NS 3.375gm 3.375 GM/100 ML BAG IVPB SCH ×3 (00:18→16:36)
[2018-10-26] MEDS: NA CHLORIDE 0.9% 1,000 ML IV SCH ×2 (04:35→14:35)
[2018-10-26 06:26] LABS: Albumin 1.5 g/dL (3.4-5.0); Bilirubin Total 0.3 mg/dL (0.2-1.0); Potassium 3.5 mmol/L (3.5-5.1)
[2018-10-26 06:33] LABS: Absolute Lymphocytes (CBC) 0.5 K/uL (0.7-4.9); Absolute Monocytes 0.2 K/uL (0.1-1.3); Absolute Neutrophil 3.6 K/uL (1.8-8.0); Basophils % 0.4 % (0-1.3); Eosinophils % 6.6 % (0-4.4); Hematocrit 23.3 % (39.6-49.0); Lymphocytes % 11.3 % (15.3-44.8); MPV 7.6 fL (7.6-11.3); RBC Red Blood Cell Count 2.93 M/uL (4.33-5.43)
[2018-10-26] MEDS: INSULIN -REGULAR HUMAN 50 UNIT/0.5 ML ML SQ SCH ×4 (07:30→21:16)
[2018-10-26] MEDS: LIDOCAINE 5% PATCH TOP SCH ×2 (08:48→20:57)
[2018-10-26] MEDS: INSULIN GLARGINE 100 UNITS/ML SQ SCH (08:48)
[2018-10-26] MEDS: LACTOBACILLUS/ACIDOPHILUS TAB PO SCH ×3 (08:49→20:56)
[2018-10-26] MEDS: FINASTERIDE 5 MG TAB PO SCH (08:49)
[2018-10-26] MEDS: ASPIRIN EC 81 MG TAB PO SCH (08:49)
[2018-10-26] MEDS: PANTOPRAZOLE 40MG TABLET PO SCH (08:50)
[2018-10-26] MEDS: MONTELUKAST 10 MG TAB PO SCH (08:50)
[2018-10-26] MEDS: EZETIMIBE 10 MG TAB PO SCH (08:50)
[2018-10-26] MEDS: TRAMADOL HCL 50 MG TAB PO PRN ×2 (08:51→22:40)
[2018-10-26] MEDS: NYSTATIN 500,000 UNIT/5 ML UDC PO SCH ×3 (09:00→20:56)
[2018-10-26] MEDS ORDERED: POTASSIUM CL SA 10 MEQ TAB PO ONE (09:00)
[2018-10-26] MEDS: IPRATROPIUM BROM 0.5MG/2.5ML NEB PRN (11:10)
[2018-10-26] MEDS: ALBUTEROL 2.5 MG/3 ML NEB SOL NEB PRN (11:10)
[2018-10-26 11:17] LABS: Hematocrit 22.7 % (39.6-49.0)
[2018-10-26] MEDS: ACETAMINOPHEN 325 MG TABLET PO PRN ×2 (13:17→21:29)
--- NOTE | 2018-10-26 13:56 | P.PN ---
Subjective Date of Service: 10/26/18 Chief Complaint: acute bronchitis pt still having low grade fever and chills,Hgb dropped to 7.6 ,stool guaiac ordered ,pt mentioned that he had black tarry BM 2 days ago ,ASA on hold contoninue to monitor cbc and transfuse if less than [address] Grady who recommended to hold ABx on Monday and monitor response off abx Review of Systems 10-point ROS is otherwise unremarkable General: Fever, Chills Physical Examination - Vital Signs Temperature: 100.6 F Blood Pressure: 148/67 Pulse: 96 Respirations: 20 Pulse Ox (%): 95 - Physical Exam General: Alert, Oriented x3 HEENT: Atraumatic, Normocephalic Neck: Supple Respiratory: Clear to auscultation bilaterally Cardiovascular: No edema, Normal pulses, Regular rate/rhythm, Normal S1 S2 Gastrointestinal: Normal bowel sounds, Soft and benign, Non-distended Integumentary: No rashes - Studies Medications List Reviewed: Yes Assessment And Plan - Plan Assessment/Plan: Sepsis Most Likely secondary to Obstructive pneumonia secondary to Lung Mass continue zosyn and vancoymcin repeat bcx -ve up to date ID consulted 2. Acute on chronic kidney injury, stage 3. -BUN and creatinine improving 3. 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 4. Essential hypertension, improved. 5. Diabetes mellitus type 2 with hyperglycemia, non-insulin requiring. -We will continue sliding scale due to his glucose levels. Insulin has been adjusted 6. Diarrhea, likely due to Radiation and Abx. -We will start on probiotics. -Clostridium difficile negative at this time. -stool wbc -ve plan to dc when afebrile and BCx are -ve plan discussed with the pt and family at the bed side Discharge Plan: Home Plan to discharge in: 48 Hours (when the pt is afebrile)
--- NOTE | 2018-10-26 14:56 | PN ---
Subjective: The patient lying in bed. Denies any headache, nausea, vomiting, having abdominal disco mfort especially when he eats. Had 2 bowel movements yesterday and 1 bowel movement today, unable to eat much lately running low-grade fevers anywhere ranging from 99-101. The patient currently being treated with Zosyn and vancomycin. Objective: Vital signs: Temperature 100.6, pulse 96, respirations 18, blood pressure 148/67. Lungs: Basal crackles, right more than left. Heart: S1 and S2 regular. Abdomen: Soft, nontender. Bowel sounds present. Extremities: No edema. Laboratory Data: CT abdomen done on 10/21/2018 shows no bowel obstruction, free air or surgical nitish gent finding. No acute or GI process identifiable. A 5 cm mass in the posteromedial left lung ba se. Pleural effusion seen on 09/29 has almost fully resolved. Bilateral large renal masses and nume sharon abnormal lymph nodes in the upper abdomen. Full assessment limited in the absence of IV contras t. Chest x-ray done on 10/22/2018 shows no new progressive parenchymal process. WBC 4.7, hemoglobin 7.6, platelets 156. Chemistry shows sodium 137, potassium 3.5, chloride 105, bic arb 23, BUN 11, creatinine 1.6, glucose 95. Micro data; blood cultures no growth in 24 hours, fecal leukocytes, no WBC seen. Assessment And Plan: Fever, possibly secondary to tumor versus infectious process. Recommend to rep eat a procalcitonin with another possibility that we could stop antibiotic for 24 hours and repeat cultures when fever spikes. NF/MODL Voice ID: [id number] Report ID: [id number]
[2018-10-26] MEDS: ATORVASTATIN 20 MG TAB PO SCH (20:55)
[2018-10-26] MEDS: VANCOMYCIN 1.5 GM in NA CHLORIDE 0.9% 500 ML IVPB SCH (20:56)
[2018-10-26] MEDS: TAMSULOSIN 0.4 MG SR CAP PO SCH (20:56)
[2018-10-27] MEDS: PIPER/TAZO/NS 3.375gm 3.375 GM/100 ML BAG IVPB SCH ×3 (00:27→17:00)
[2018-10-27] MEDS: NA CHLORIDE 0.9% 1,000 ML IV SCH ×3 (00:27→18:00)
[2018-10-27 04:39] LABS: Absolute Lymphocytes (CBC) 0.6 K/uL (0.7-4.9); Absolute Monocytes 0.2 K/uL (0.1-1.3); Absolute Neutrophil 3.4 K/uL (1.8-8.0); Basophils % 0.5 % (0-1.3); Eosinophils % 6.8 % (0-4.4); Hematocrit 23.8 % (39.6-49.0); Lymphocytes % 13.9 % (15.3-44.8); MPV 7.9 fL (7.6-11.3); Monocytes % 5.3 % (3.3-12.3)
[2018-10-27 04:52] LABS: Albumin 1.6 g/dL (3.4-5.0); Bilirubin Total 0.3 mg/dL (0.2-1.0); Potassium 3.5 mmol/L (3.5-5.1); Protein, Total 5.1 g/dL (6.4-8.2)
[2018-10-27] MEDS: INSULIN -REGULAR HUMAN 50 UNIT/0.5 ML ML SQ SCH ×4 (07:30→21:38)
[2018-10-27] MEDS ORDERED: POTASSIUM CL SA 10 MEQ TAB PO ONE (09:00)
[2018-10-27] MEDS: LIDOCAINE 5% PATCH TOP SCH ×2 (09:27→20:53)
[2018-10-27] MEDS: LACTOBACILLUS/ACIDOPHILUS TAB PO SCH ×3 (09:28→20:53)
[2018-10-27] MEDS: FINASTERIDE 5 MG TAB PO SCH (09:28)
[2018-10-27] MEDS: INSULIN GLARGINE 100 UNITS/ML SQ SCH (09:28)
[2018-10-27] MEDS: MONTELUKAST 10 MG TAB PO SCH (09:29)
[2018-10-27] MEDS: NYSTATIN 500,000 UNIT/5 ML UDC PO SCH ×3 (09:29→20:53)
[2018-10-27] MEDS: PANTOPRAZOLE 40MG TABLET PO SCH (09:29)
[2018-10-27] MEDS: EZETIMIBE 10 MG TAB PO SCH (09:29)
--- NOTE | 2018-10-27 12:08 | RAD REPORT ---
EXAM DESCRIPTION: RAD - Chest Single View - 10/27/2018 12:02 pm CLINICAL HISTORY: sob Chest pain. COMPARISON: Chest Single View dated 10/22/2018; Chest Single View dated 10/18/2018; Chest Pa And Lat (2 Views) dated 09/21/2018; Chest Pa And Lat (2 Views) dated 09/20/2018; Chest Abd Pelvis Wo Con dated 10/18/2018 FINDINGS: Portable technique limits examination quality. Emphysematous changes are present throughout the lungs. No focal infiltrate seen. Left lung base pulm onary mass again seen, unchanged. The heart is normal in size.Mild aortic atherosclerosis.
[2018-10-27] MEDS: HYDROCODONE/APAP 5/325 MG TAB PO PRN ×2 (12:33→20:53)
--- NOTE | 2018-10-27 13:40 | P.PN ---
Subjective Date of Service: 10/27/18 Chief Complaint: acute bronchitis Patient was complaining of lower abdominal and back pain today, hemoglobin is stable 7.9, still guaiac was negative [place] added for better pain controlled Lower abdominal pain with bruising ,f/up stat lower abdominal US to r/o hematoma Follow-up repeat chest x-ray Still having fevers Plan to Dc antibiotics on Monday as recommended by ID and monitor response Review of Systems 10-point ROS is otherwise unremarkable General: Fever, Chills Gastrointestinal: Abdominal Pain Musculoskeletal: Back Pain Physical Examination - Vital Signs Temperature: 100.4 F Blood Pressure: 173/76 Pulse: 95 Respirations: 24 Pulse Ox (%): 97 - Physical Exam General: Alert, Oriented x3 HEENT: Atraumatic, Normocephalic, PERRLA Neck: Supple Respiratory: Normal air movement, Crackles/rales Cardiovascular: No edema, Regular rate/rhythm, Normal S1 S2 Gastrointestinal: Normal bowel sounds, Soft and benign, Non-distended (Lower abdominal tenderness atr the site of heparin injection) Musculoskeletal: No swelling - Studies Medications List Reviewed: Yes Assessment And Plan - Plan Assessment/Plan: Sepsis Most Likely secondary to Obstructive pneumonia secondary to Lung Mass continue zosyn and vancoymcin repeat bcx -ve up to date ID consulted 2. Acute on chronic kidney injury, stage 3. -BUN and creatinine improving 3. 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 4. Essential hypertension, improved. 5. Diabetes mellitus type 2 with hyperglycemia, non-insulin requiring. -We will continue sliding scale due to his glucose levels. Insulin has been adjusted 6. Diarrhea, likely due to Radiation and Abx. -We will start on probiotics. -Clostridium difficile negative at this time. -stool wbc -ve plan to dc when afebrile and BCx are -ve plan discussed with the pt and family at the bed side
[2018-10-27] MEDS: ALBUTEROL 2.5 MG/3 ML NEB SOL NEB PRN (13:50)
[2018-10-27] MEDS: IPRATROPIUM BROM 0.5MG/2.5ML NEB PRN (13:50)
--- NOTE | 2018-10-27 14:47 | RAD REPORT ---
EXAM DESCRIPTION: US - Extremity Nonvascular Complete - 10/27/2018 2:40 pm CLINICAL HISTORY: r/o hematoma Right lower quadrant pain and swelling. COMPARISON: No comparisons TECHNIQUE: Real-time sonographic evaluation of the area of interest was performed. FINDINGS: Small oblong nonvascular collections are present in the subcutaneous tissue right lower qu adrant largest measuring about 7 mm, these are likely small hematomas. No aggressive mass seen.
[2018-10-27 14:49] LABS: Absolute Lymphocytes (CBC) 1.3 K/uL (0.7-4.9); Absolute Monocytes 0.3 K/uL (0.1-1.3); Absolute Neutrophil 3.3 K/uL (1.8-8.0); Basophils % 0.8 % (0-1.3); Eosinophils % 4.8 % (0-4.4); Lymphocytes % 24.9 % (15.3-44.8); MPV 7.6 fL (7.6-11.3); Monocytes % 5.8 % (3.3-12.3); RBC Red Blood Cell Count 2.92 M/uL (4.33-5.43)
--- NOTE | 2018-10-27 15:40 | P.CNS ---
Date of Consult: 10/27/18 Reason for Consult: CKD Chief Complaint: acute bronchitis History of Present Illness: A 78 Y/o man with PMhx of DM, HTN, CKD, recently diagnosed stage IV lung Ca , S/ P palliative radiotherapy presented with fever chills, abd pain, and nausea no chest pain, palpitation or diarrhea Allergies flu vaccine Allergy (Uncoded 08/02/16 08:36) hives and swelling from injection site radiating up arm Home Medications: Amlodipine [Norvasc*] 10 mg PO DAILY 09/17/18 Ascorbic Acid [Vitamin C] 500 mg PO DAILY 09/17/18 Aspirin [Aspirin EC 81 MG] 81 mg PO DAILY 09/17/18 Cholecalciferol (Vitamin D3) [D3-50] 10,000 unit PO ONCE 09/17/18 Ezetimibe [Zetia*] 10 mg PO DAILY 09/17/18 Finasteride [Proscar*] 5 mg PO DAILY 09/17/18 Insulin Glargine,Hum.rec.anlog [Lantus Solostar] 20 units SQ BID 09/17/18 Krill/Om-3/Dha/Epa/Phospho/Ast [Krill Oil 500 mg Softgel] 500 mg PO DAILY Metoprolol Succinate [Toprol Xl] 200 mg PO DAILY 09/17/18 Montelukast [Singulair*] 10 mg PO DAILY 09/17/18 Multivit-Min/FA/Lycopen/Lutein [Centrum Silver Tablet] 1 tab PO DAILY 09/17/18 Nateglinide [Starlix] 120 mg PO BID 09/17/18 Simvastatin [Zocor] 40 mg PO BEDTIME 09/17/18 Tamsulosin [Flomax*] 0.4 mg PO BEDTIME 09/17/18 Bisacodyl [Dulcolax] 10 mg RC DAILY 10/18/18 Lidocaine 5% Patch [Lidoderm 5% Patch*] 1 patch TOP BID 10/18/18 Nystatin 100,000 unit PO QID PRN 10/18/18 Pantoprazole [Protonix Tab*] 1 tab PO DAILY 10/18/18 Polyethyl Gly 3350 [Glycolax] 17 gm PO BID PRN 10/18/18 Senosides [Senokot] 8.6 mg PO DAILY 10/18/18 - Past Medical/Surgical History Diabetic: Yes -: cancer scalp -: NH -: IDDM -: hyperlipidemia -: HTN -: Chronic kidney disease - Social History Smoking Status: Current every day smoker Alcohol use: No CD- Drugs: No Caffeine use: Yes Place of Residence: Home Physical Examination Temp Pulse Resp BP Pulse Ox 99.6 F 95 H 24 H 173/76 H 97 10/27/18 15:00 10/27/18 13:51 10/27/18 13:51 10/27/18 13:51 10/27/18 13:51 General: Oriented x3, Mild distress HEENT: Atraumatic Neck: Supple, Without JVD or thyroid abnormality Respiratory: Clear to auscultation bilaterally, Normal air movement Cardiovascular: No edema, Regular rate/rhythm, Normal S1 S2 Gastrointestinal: Normal bowel sounds External genitalia: No edema - Problems (1) CKD (chronic kidney disease) Current Visit: Yes Status: Acute (2) Lung cancer Current Visit: No Status: Acute Qualifiers: Laterality: left (3) Hypertension Onset Date: 10/19/18 Current Visit: No Status: Chronic Qualifiers: Hypertension type: essential hypertension Qualified Code(s): I10 - Essential (primary) hypertension (4) Type 2 diabetes mellitus Onset Date: 10/19/18 Current Visit: No Status: Chronic Qualifiers: 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
[2018-10-27] MEDS: METOPROLOL TAR 25 MG TAB PO SCH (17:41)
[2018-10-27] MEDS: ATORVASTATIN 20 MG TAB PO SCH (20:53)
[2018-10-27] MEDS: TAMSULOSIN 0.4 MG SR CAP PO SCH (20:53)
[2018-10-28] MEDS: PIPER/TAZO/NS 3.375gm 3.375 GM/100 ML BAG IVPB SCH (00:30)
[2018-10-28 05:27] LABS: Absolute Lymphocytes (CBC) 0.7 K/uL (0.7-4.9); Absolute Monocytes 0.2 K/uL (0.1-1.3); Absolute Neutrophil 2.9 K/uL (1.8-8.0); Basophils % 0.5 % (0-1.3); Hematocrit 21.6 % (39.6-49.0); Lymphocytes % 17.2 % (15.3-44.8); MPV 7.8 fL (7.6-11.3); Monocytes % 5.8 % (3.3-12.3); RBC Red Blood Cell Count 2.73 M/uL (4.33-5.43)
[2018-10-28] MEDS: METOPROLOL TAR 25 MG TAB PO SCH ×2 (05:29→17:34)
[2018-10-28 05:41] LABS: Albumin 1.5 g/dL (3.4-5.0); Bilirubin Total 0.3 mg/dL (0.2-1.0); Potassium 3.9 mmol/L (3.5-5.1); Protein, Total 4.8 g/dL (6.4-8.2)
[2018-10-28 06:04] LABS: Ferritin 864.3 ng/mL (26-388); Folic Acid, (Folate) > 20.0 ng/mL (3.1-17.5); Transferrin 91 mg/dL (200-360)
[2018-10-28] MEDS: INSULIN -REGULAR HUMAN 50 UNIT/0.5 ML ML SQ SCH ×4 (07:30→21:00)
[2018-10-28] MEDS ORDERED: FUROSEMIDE 20 MG/ 2ML VIAL IV ONE (08:54)
[2018-10-28] MEDS ORDERED: NA CHLORIDE 0.9% 250 ML IV SCH (09:00)
[2018-10-28] MEDS ORDERED: POTASSIUM CL SA 10 MEQ TAB PO ONE (09:00)
[2018-10-28] MEDS: NYSTATIN 500,000 UNIT/5 ML UDC PO SCH ×3 (09:16→22:01)
[2018-10-28] MEDS: INSULIN GLARGINE 100 UNITS/ML SQ SCH (09:16)
[2018-10-28] MEDS: LACTOBACILLUS/ACIDOPHILUS TAB PO SCH ×3 (09:17→22:02)
[2018-10-28] MEDS: MONTELUKAST 10 MG TAB PO SCH (09:17)
[2018-10-28] MEDS: EZETIMIBE 10 MG TAB PO SCH (09:17)
[2018-10-28] MEDS: PANTOPRAZOLE 40MG TABLET PO SCH (09:17)
[2018-10-28] MEDS: FINASTERIDE 5 MG TAB PO SCH (09:17)
[2018-10-28] MEDS: LIDOCAINE 5% PATCH TOP SCH ×2 (09:18→22:02)
[2018-10-28] MEDS: HYDROCODONE/APAP 5/325 MG TAB PO PRN ×2 (09:22→17:02)
[2018-10-28 12:26] LABS: Hematocrit 24.4 % (39.6-49.0)
[2018-10-28] MEDS: NA CHLORIDE 0.9% 1,000 ML IV SCH (12:27)
[2018-10-28] MEDS ORDERED: NA CHLORIDE 0.9% 0 ML ONE (14:16)
--- NOTE | 2018-10-28 14:38 | P.PN ---
Subjective Date of Service: 10/28/18 Chief Complaint: acute bronchitis vqncomycin and zosyn dc/ed as recommended by ID repeat hgb 8.2 lower abd us no hematoma still spiking low grade fever Review of Systems General: Fever, Chills Musculoskeletal: Back Pain Physical Examination - Vital Signs Temperature: 98.1 F Blood Pressure: 140/63 Pulse: 103 Respirations: 16 Pulse Ox (%): 95 - Physical Exam General: Alert, Oriented x3 HEENT: Atraumatic, Normocephalic Neck: Supple Respiratory: Clear to auscultation bilaterally, Normal air movement Cardiovascular: No edema, Normal pulses, Regular rate/rhythm, Normal S1 S2 Gastrointestinal: Normal bowel sounds, Soft and benign, Non-distended Musculoskeletal: No erythema Integumentary: No rashes Neurological: Normal speech, Normal strength at 5/5 x4 extr, Normal tone - Studies Medications List Reviewed: Yes Assessment And Plan - Plan Assessment/Plan: Sepsis Most Likely secondary to Obstructive pneumonia secondary to Lung Mass continue zosyn and vancoymcin repeat bcx -ve up to date ID consulted 2. Acute on chronic kidney injury, stage 3. -BUN and creatinine improving 3. 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 4. Essential hypertension, improved. 5. Diabetes mellitus type 2 with hyperglycemia, non-insulin requiring. -We will continue sliding scale due to his glucose levels. Insulin has been adjusted 6. Diarrhea, likely due to Radiation and Abx. -We will start on probiotics. -Clostridium difficile negative at this time. -stool wbc -ve plan to dc when afebrile and BCx are -ve plan discussed with the pt and family at the bed side
--- NOTE | 2018-10-28 14:54 | P.PN ---
Subjective Date of Service: 10/28/18 Chief Complaint: acute bronchitis Subjective: No new changes CKD III, lung Ca on pallitaive radiotherapy admitted for chills and fever Cr stable BP controlled cont to pike fever Abx stopped, fever central in origin ? Physical Examination - Vital Signs Temperature: 98.1 F Blood Pressure: 140/63 Pulse: 103 Respirations: 16 Pulse Ox (%): 95 - Physical Exam General: Oriented x3, Mild distress HEENT: Atraumatic Neck: Supple, Without JVD or thyroid abnormality Respiratory: Clear to auscultation bilaterally, Normal air movement Cardiovascular: No edema, Regular rate/rhythm, Normal S1 S2, No gallops, No rubs , No murmurs Gastrointestinal: Normal bowel sounds - Studies Medications List Reviewed: Yes Assessment And Plan - Current Problems (Diagnosis) (1) CKD (chronic kidney disease) Current Visit: Yes Status: Acute (2) Lung cancer Current Visit: No Status: Acute Qualifiers: Laterality: left (3) Hypertension Onset Date: 10/19/18 Current Visit: No Status: Chronic Qualifiers: Hypertension type: essential hypertension Qualified Code(s): I10 - Essential (primary) hypertension (4) Type 2 diabetes mellitus Onset Date: 10/19/18 Current Visit: No Status: Chronic Qualifiers: Diabetes mellitus residential insulin use: without exterminator use Diabetes mellitus complication status: without complication Qualified Code(s): E11.9 - Type 2 diabetes mellitus without complications - Plan CKD III Cr stable renal dose meds HTN Controlled Adrenal lesion likely tumor mets pt is not a candidate for intervention Stage IV lung Ca cont supportive care DM as per primary Strep pneumonia bacteremia completed Abx course abs on hold, fever central in origin?
[2018-10-28 18:49] LABS: Absolute Lymphocytes (CBC) 0.8 K/uL (0.7-4.9); Absolute Monocytes 0.3 K/uL (0.1-1.3); Absolute Neutrophil 3.6 K/uL (1.8-8.0); Basophils % 0.5 % (0-1.3); Eosinophils % 5.9 % (0-4.4); Lymphocytes % 16.6 % (15.3-44.8); Monocytes % 5.8 % (3.3-12.3); RBC Red Blood Cell Count 3.08 M/uL (4.33-5.43)
[2018-10-28 18:56] LABS: Albumin 1.6 g/dL (3.4-5.0); Bilirubin Total 0.3 mg/dL (0.2-1.0); Potassium 3.8 mmol/L (3.5-5.1); Protein, Total 5.4 g/dL (6.4-8.2)
[2018-10-28] MEDS: ATORVASTATIN 20 MG TAB PO SCH (22:02)
[2018-10-28] MEDS: TAMSULOSIN 0.4 MG SR CAP PO SCH (22:02)
[2018-10-29] MEDS: HYDROCODONE/APAP 5/325 MG TAB PO PRN ×3 (03:12→23:40)
[2018-10-29] MEDS: NA CHLORIDE 0.9% 1,000 ML IV SCH ×2 (03:12→20:36)
[2018-10-29] MEDS: METOPROLOL TAR 25 MG TAB PO SCH ×2 (05:23→17:56)
[2018-10-29 05:47] LABS: Potassium 3.5 mmol/L (3.5-5.1)
[2018-10-29] MEDS: INSULIN -REGULAR HUMAN 50 UNIT/0.5 ML ML SQ SCH ×4 (07:30→20:42)
[2018-10-29 07:41] LABS: Absolute Lymphocytes (CBC) 0.9 K/uL (0.7-4.9); Absolute Monocytes 0.4 K/uL (0.1-1.3); Absolute Neutrophil 3.2 K/uL (1.8-8.0); Basophils % 0.9 % (0-1.3); Eosinophils % 5.6 % (0-4.4); Hematocrit 23.7 % (39.6-49.0); Lymphocytes % 19.6 % (15.3-44.8); MPV 7.6 fL (7.6-11.3); Monocytes % 7.4 % (3.3-12.3); RBC Red Blood Cell Count 2.98 M/uL (4.33-5.43)
[2018-10-29] MEDS ORDERED: POTASSIUM CL SA 10 MEQ TAB PO ONE (09:00)
[2018-10-29] MEDS: SOD FERRIC GLUC COMPLX/SUCROSE 125 MG in NA CHLORIDE 0.9% 100 ML IV SCH (09:40)
[2018-10-29] MEDS: INSULIN GLARGINE 100 UNITS/ML SQ SCH (09:41)
[2018-10-29] MEDS: LIDOCAINE 5% PATCH TOP SCH ×2 (09:42→20:34)
[2018-10-29] MEDS: PANTOPRAZOLE 40MG TABLET PO SCH (09:42)
[2018-10-29] MEDS: FINASTERIDE 5 MG TAB PO SCH (09:42)
[2018-10-29] MEDS: LACTOBACILLUS/ACIDOPHILUS TAB PO SCH ×3 (09:43→20:32)
[2018-10-29] MEDS: NYSTATIN 500,000 UNIT/5 ML UDC PO SCH ×3 (09:43→20:34)
[2018-10-29] MEDS: MONTELUKAST 10 MG TAB PO SCH (09:43)
[2018-10-29] MEDS: EZETIMIBE 10 MG TAB PO SCH (09:43)
--- NOTE | 2018-10-29 14:29 | P.PN ---
Subjective Date of Service: 10/29/18 Primary Care Provider: Dr. Luevano Chief Complaint: acute bronchitis Subjective: Other (Patient is slowly improving. Patient did have a T-max of 101.2 yesterday.) Physical Examination - Vital Signs Temperature: 98.4 F Blood Pressure: 158/71 Pulse: 85 Respirations: 20 Pulse Ox (%): 94 - Physical Exam General: Alert, In no apparent distress, Oriented x3, Cooperative HEENT: Atraumatic Neck: Supple Respiratory: Expiratory wheezes, Inspiratory wheezes Cardiovascular: Normal pulses, Regular rate/rhythm Gastrointestinal: Normal bowel sounds, Soft and benign, Non-distended, No masses , No rebound, No guarding Musculoskeletal: No erythema, No tenderness, No warmth Integumentary: No tenderness/swelling, No erythema, No warmth, No cyanosis Neurological: Normal speech, Normal strength at 5/5 x4 extr, Normal tone, Normal affect - Studies Medications List Reviewed: Yes Assessment & Plan Discharge Plan: Home Plan to discharge in: 48 Hours Physician Review Additional Text: Impression: Sepsis secondary to obstructive pneumonia complicated with stage IV adenocarcinoma lung cancer with diffuse mets to the adrenal glands, S1 spine, and mesenteric lymph Fever likely from cancer verses other Acute on chronic renal disease, stage III Hypertension Diabetes mellitus type 2 Diarrhea likely from recent radiation therapy GERD Hyperlipidemia Anemia, iron deficiency Plan: Sepsis secondary to obstructive pneumonia complicated with stage IV adenocarcinoma lung cancer with diffuse mets to the adrenal glands, S1 spine, and mesenteric lymph: Patient is slowly improving. Encourage physical therapy to ambulate patient. Continue to wean off oxygen. Patient had a spike in fever. Infectious Disease had recommended to discontinue IV antibiotic therapy over the weekend. Patient developed fever. Blood cultures obtained. Pro calcitonin negative. Will discuss further with infectious disease to the decide on restarting antibiotic therapy or continue monitor. Anticipate discharge home likely this week with home health and physical therapy. Fever likely from cancer verses other: Etiology unknown. Will discuss with infectious disease. Pro calcitonin negative. Repeat blood culture obtained yesterday when he developed fever. Acute on chronic renal disease, stage III: This continues to improve. Encouraged oral intake. Nephrology continues to monitor and adjust fluids. Hypertension: Continue with medication. Will monitor and adjust appropriately. Diabetes mellitus type 2: Continue sliding scale. Diarrhea likely from recent radiation therapy: Continue to monitor closely. C diff culture negative. GERD: Continue the medication Hyperlipidemia: Continue the medication. Iron deficiency anemia: Will start IV iron. Will monitor closely. If hemoglobin below 7, patient may require transfusion. Time Spent Managing Pts Care (In Minutes): 55
[2018-10-29] MEDS: ACETAMINOPHEN 325 MG TABLET PO PRN (16:31)
--- NOTE | 2018-10-29 19:17 | PN ---
Subjective: The patient lying in bed with slight chills. Denies any headache, nausea, vomiting, yazan st pain, abdominal pain, constipation, or diarrhea. Was able to walk around with the help of [employer]. Objective: Vital Signs: Temperature 98.4, pulse 85, respirations 18, blood pressure 158/71. Lungs: Basal crackles. Heart: S1, S2. Regular. Abdomen: Soft, nontender. Bowel sounds present. Extremities: No edema. Assessment And Plan: 1.Bladder CA, status post chemotherapy. The patient is currently off antibiotic. If the patient sp ikes fever, we will recommend to repeat blood cultures and restart the antibiotic. 2.Mets to lung versus pneumonitis. Continue supportive care. We will follow the patient as needed. DANNA/RADHA Voice ID: [id number] Report ID: [id number]
[2018-10-29] MEDS: ARFORMOTEROL TARTRATE 15 MCG/2 ML VIAL.NEB NEB SCH (20:00)
[2018-10-29] MEDS: TAMSULOSIN 0.4 MG SR CAP PO SCH (20:33)
[2018-10-29] MEDS: ATORVASTATIN 20 MG TAB PO SCH (20:34)
--- NOTE | 2018-10-30 04:13 | PN ---
Date of Progress Note: 10/29/2018 Chief Complaint: Elevated BUN and creatinine, chronic kidney disease stage 3. History Of Present Illness: The patient is undergoing treatment with palliative radiotherapy for mimi g cancer. He is admitted for chills and fever. Workup was initiated to rule out sepsis. The patient has history of hypertensive heart and kidney disease. Blood pressure has been in good co ntrol. Review of Systems: Denies fever or chills. Physical Examination: Lungs: Clear to auscultation bilaterally. Heart: S1 and S2. Abdomen: Soft, benign. Extremities: Slight edema. Laboratory Data: Blood work showed hemoglobin 7.9, WBC 4.8, platelet count 282,000. Sodium 136, pot assium 3.5, chloride 103, CO2 25, BUN 10, creatinine 1.59. Impression And Plan: 1.Chronic kidney disease stage 3 with prerenal azotemia. Creatinine level is improving from 1.7 to 1.59. Monitor electrolytes closely. 2.Hypertensive heart and kidney disease. Monitor blood pressure. Adjust treatment according to blo od pressure. There is no volume overload. Continue low-sodium diet. 3.Stage IV lung cancer. Adrenal lesion, likely tumor with metastatic disease. Further recommendati on per primary team. 4.Streptococcus pneumoniae bacteremia. The patient completed antibiotics and check cultures if the patient has active infection and elevated leukocytosis. LAZARO/RADHA Voice ID: [id number] Report ID: [id number]
[2018-10-30 06:19] LABS: Absolute Monocytes 0.4 K/uL (0.1-1.3); Absolute Neutrophil 3.3 K/uL (1.8-8.0); Basophils % 0.7 % (0-1.3); Eosinophils % 4.4 % (0-4.4); Lymphocytes % 20.3 % (15.3-44.8); MPV 7.7 fL (7.6-11.3); RBC Red Blood Cell Count 3.08 M/uL (4.33-5.43)
[2018-10-30 06:30] LABS: Magnesium 1.5 mg/dL (1.8-2.4); Potassium 3.8 mmol/L (3.5-5.1)
[2018-10-30] MEDS: METOPROLOL TAR 25 MG TAB PO SCH ×2 (06:54→17:29)
[2018-10-30] MEDS: INSULIN -REGULAR HUMAN 50 UNIT/0.5 ML ML SQ SCH ×4 (07:30→21:00)
[2018-10-30] MEDS ORDERED: Magnesium Sulfate 2gm IVPB 2 G/50 ML BAG IV ONE (08:00)
[2018-10-30] MEDS ORDERED: POTASSIUM 25 MEQ EFFERV TAB PO ONE (08:00)
[2018-10-30] MEDS: ARFORMOTEROL TARTRATE 15 MCG/2 ML VIAL.NEB NEB SCH ×2 (08:10→20:00)
[2018-10-30] MEDS: ONDANSETRON 4 MG/2 ML VIAL IV PRN (08:37)
[2018-10-30] MEDS: SOD FERRIC GLUC COMPLX/SUCROSE 125 MG in NA CHLORIDE 0.9% 100 ML IV SCH (08:48)
--- NOTE | 2018-10-30 08:48 | EKG ---
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
[2018-10-30] MEDS: LIDOCAINE 5% PATCH TOP SCH ×2 (08:50→22:01)
[2018-10-30] MEDS: LACTOBACILLUS/ACIDOPHILUS TAB PO SCH ×3 (08:51→22:01)
[2018-10-30] MEDS: FINASTERIDE 5 MG TAB PO SCH (08:51)
[2018-10-30] MEDS: NYSTATIN 500,000 UNIT/5 ML UDC PO SCH ×2 (08:51→09:00)
[2018-10-30] MEDS: MONTELUKAST 10 MG TAB PO SCH (08:51)
[2018-10-30] MEDS: PANTOPRAZOLE 40MG TABLET PO SCH (08:52)
[2018-10-30] MEDS: INSULIN GLARGINE 100 UNITS/ML SQ SCH (08:53)
[2018-10-30] MEDS: EZETIMIBE 10 MG TAB PO SCH (08:54)
--- NOTE | 2018-10-30 09:40 | RAD REPORT ---
EXAM DESCRIPTION: RAD - Chest Single View - 10/30/2018 9:31 am CLINICAL HISTORY: unstable Chest pain. COMPARISON: Chest Single View dated 10/27/2018; Chest Single View dated 10/22/2018; Chest Single View dated 10/18/2018; Chest Pa And Lat (2 Views) dated 09/21/2018 FINDINGS: Portable technique limits examination quality. Mild progression in the right lung base haziness is seen since the 10/27/2018 prior study. Rounded le sivakumar in the medial left lung base appears stable. The heart is upper limit of normal in size aortic a therosclerosis. No displaced fractures. IMPRESSION: Mild progression the right lung base haziness since 10/27/2018 prior study.
--- NOTE | 2018-10-30 10:44 | P.PN ---
Subjective Date of Service: 10/30/18 Primary Care Provider: Dr. Luevano Chief Complaint: acute bronchitis Subjective: Other (Some shortness of breath noted. Patient had another fever today.) Physical Examination - Vital Signs Temperature: 100.7 F Blood Pressure: 127/91 Pulse: 101 Respirations: 20 Pulse Ox (%): 88 - Physical Exam General: Alert, In no apparent distress, Cooperative HEENT: Atraumatic Neck: Supple Respiratory: Crackles/rales (The right side), Expiratory wheezes Cardiovascular: Normal pulses, Regular rate/rhythm Gastrointestinal: Normal bowel sounds, Soft and benign, Non-distended, No tenderness, No masses, No rebound, No guarding Musculoskeletal: No erythema, No tenderness, No warmth Integumentary: No tenderness/swelling, No erythema, No warmth, No cyanosis Neurological: Normal speech, Normal strength at 5/5 x4 extr, Normal tone, Normal affect - Studies Medications List Reviewed: Yes Assessment & Plan Discharge Plan: Other (Skilled placement facility) Plan to discharge in: Greater than 2 days Physician Review Additional Text: Impression: Sepsis secondary to obstructive pneumonia complicated with 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 Case briefly discuss with infectious disease. Await further recommendations from infectious disease. Blood cultures obtained. Will recheck pro calcitonin. This was normal yesterday. Recheck x-ray shows possible pneumonia to the right side. Will maintain sats above 90%. Will start vancomycin and cefepime. Will continue monitor the patient closely. Social work working to get patient placed to skilled facility. Will need to determine if the patient will require IV antibiotic therapy at skilled facility. Fever likely from cancer verses other: Etiology unknown. Continue as above. Vancomycin and cefepime started. Blood cultures obtained. Recheck pro calcitonin. Will discuss further with infectious disease. Acute on chronic renal disease, stage III: This continues to improve. Encouraged oral intake. Nephrology continues to monitor and adjust fluids. Hypertension: Continue with medication. Will monitor and adjust appropriately. Diabetes mellitus type 2: Continue sliding scale. Diarrhea likely from recent radiation therapy: Continue to monitor closely. C diff culture negative. GERD: Continue the medication Hyperlipidemia: Continue the medication. Iron deficiency anemia: IV iron initiated. Will monitor closely. If hemoglobin below 7, patient may require transfusion. Time Spent Managing Pts Care (In Minutes): 55
[2018-10-30] MEDS ORDERED: VANCOMYCIN 1.5 GM in NA CHLORIDE 0.9% 500 ML IVPB SCH (11:00)
[2018-10-30] MEDS ORDERED: CEFEPIME 2 GM VIAL IV SCH (11:00)
[2018-10-30] MEDS ORDERED: Levofloxacin500mg IV 500 MG/100 ML BAG IV SCH (11:00)
[2018-10-30] MEDS: CEFEPIME/SWI 2gm 2 GM/20 ML SYR IV SCH (12:38)
[2018-10-30] MEDS: ACETAMINOPHEN 325 MG TABLET PO PRN ×2 (12:38→23:52)
[2018-10-30] MEDS: NA CHLORIDE 0.9% 1,000 ML IV SCH (12:40)
[2018-10-30] MEDS: HYDROCODONE/APAP 5/325 MG TAB PO PRN (17:34)
--- NOTE | 2018-10-30 20:33 | PN ---
Subjective: The patient developed fever yesterday after which the cultures were sent. The patient i nitially came in with sepsis and obstructive pneumonitis. The patient is currently being treated wit h IV antibiotic. History of adenocarcinoma, status post 6 cycles of radiation therapy. Objective: Vital signs: Temperature 100.7 T-max, current temperature 99.8, pulse 100, respirations 18, blood pressure 132/60. Lungs: Basal crackles. Heart: S1, S2. Regular. Abdomen: Soft, nontender. Bowel sounds present. Extremity: No edema. Laboratory Data: Shows WBC 5, hemoglobin 8, platelets are 392. Chemistry shows sodium 137, potassiu m 3.8, chloride 103, bicarb 27, BUN 11, creatinine 1.5, glucose is 110. Micro data: Blood cultures pending. Chest x-ray done today shows mild progression of right lung base haziness. Assessment And Plan: Right lower lobe pneumonia, obstructive pattern versus community-acquired. Con tinue antibiotic and supportive care. Prognosis guarded. Consider dietary consult for possible TPN versus increase supplemental feeding. Continue supportive care and we will follow the patient as needed. NF/MODL Voice ID: [id number] Report ID: [id number]
[2018-10-30] MEDS: ATORVASTATIN 20 MG TAB PO SCH (22:00)
[2018-10-30] MEDS: TAMSULOSIN 0.4 MG SR CAP PO SCH (22:00)
--- NOTE | 2018-10-30 22:58 | PN ---
Date of Progress Note: 10/30/2018 Chief Complaint: Chronic kidney disease, stage 3. History Of Present Illness: The patient is undergoing treatment with palliative radiotherapy for mimi g cancer. He is admitted for chills and fever. Today, he developed chills and blood work will be ob tained to check calcitonin level. The patient was medicated with Tylenol. Review of Systems: The patient denies PND, orthopnea, nausea, or vomiting . Physical Examination: Lungs: Clear to auscultation bilaterally. Heart: S1, S2. Abdomen: Soft, benign. Extremities: Slight edema. Laboratory Work: Blood work showed BUN 10, creatinine 1.59. Sodium 136, potassium 3.5, chloride 103 . Impression And Plan: 1.Chronic kidney disease, stage 3. There is some prerenal azotemia. Continue adequate hydration. Monitor electrolytes closely. 2.Hypertensive heart and kidney disease. Monitor blood pressure. Adjust blood pressure medication accordingly. There is no volume overload. Continue low-sodium diet. 3.Stage IV lung cancer with adrenal lesion, likely tumor with metastatic disease. Further recommend ations from primary team. 4.Pneumonia, bacteremia. Continue antibiotics. Monitor white count. Re-evaluate blood culture as needed. EB/MODL Voice ID: [id number] Report ID: [id number]
[2018-10-31] MEDS: METOPROLOL TAR 25 MG TAB PO SCH ×2 (05:14→17:47)
[2018-10-31] MEDS: NA CHLORIDE 0.9% 1,000 ML IV SCH (05:20)
[2018-10-31 05:58] LABS: Absolute Lymphocytes (CBC) 1.1 K/uL (0.7-4.9); Absolute Monocytes 0.5 K/uL (0.1-1.3); Absolute Neutrophil 3.5 K/uL (1.8-8.0); Basophils % 0.7 % (0-1.3); Eosinophils % 3.3 % (0-4.4); Hematocrit 21.8 % (39.6-49.0); Lymphocytes % 19.9 % (15.3-44.8); MPV 7.6 fL (7.6-11.3); Monocytes % 8.9 % (3.3-12.3); RBC Red Blood Cell Count 2.82 M/uL (4.33-5.43)
[2018-10-31 06:15] LABS: Magnesium 1.9 mg/dL (1.8-2.4); Potassium 3.8 mmol/L (3.5-5.1)
[2018-10-31] MEDS ORDERED: POTASSIUM 25 MEQ EFFERV TAB PO ONE (06:23)
[2018-10-31] MEDS: INSULIN -REGULAR HUMAN 50 UNIT/0.5 ML ML SQ SCH ×4 (07:30→20:15)
[2018-10-31] MEDS ORDERED: VANCOMYCIN 1 GM in NA CHLORIDE 0.9% 500 ML IVPB SCH (09:00)
[2018-10-31] MEDS: ACETAMINOPHEN 325 MG TABLET PO PRN (09:52)
[2018-10-31] MEDS: ONDANSETRON 4 MG/2 ML VIAL IV PRN (09:52)
[2018-10-31] MEDS: CEFEPIME/SWI 2gm 2 GM/20 ML SYR IV SCH (09:53)
[2018-10-31] MEDS: INSULIN GLARGINE 100 UNITS/ML SQ SCH (09:53)
[2018-10-31] MEDS: EZETIMIBE 10 MG TAB PO SCH (09:54)
[2018-10-31] MEDS: SOD FERRIC GLUC COMPLX/SUCROSE 125 MG in NA CHLORIDE 0.9% 100 ML IV SCH (09:54)
[2018-10-31] MEDS: LACTOBACILLUS/ACIDOPHILUS TAB PO SCH ×3 (09:54→20:15)
[2018-10-31] MEDS: LIDOCAINE 5% PATCH TOP SCH ×2 (09:54→20:15)
[2018-10-31] MEDS: MONTELUKAST 10 MG TAB PO SCH (09:54)
[2018-10-31] MEDS: PANTOPRAZOLE 40MG TABLET PO SCH (09:54)
[2018-10-31] MEDS: FINASTERIDE 5 MG TAB PO SCH (09:54)
[2018-10-31] MEDS: ARFORMOTEROL TARTRATE 15 MCG/2 ML VIAL.NEB NEB SCH ×2 (10:22→19:59)
[2018-10-31] MEDS ORDERED: FENTANYL 25 MCG/PATCH TD SCH (10:30)
--- NOTE | 2018-10-31 11:56 | PN ---
Subjective: The patient is lying in bed, continue to have problem with nausea and vomiting. Denies any headache, chest pain, abdominal pain, constipation, diarrhea. Decided to go hospice. Objective: Vital Signs: Temperature 99.7, pulse 90, respirations 18, blood pressure 175/75. Lungs: Basal crackles. Heart: S1 and S2, regular. Abdomen: Soft, nontender. Bowel sounds present. Extremities: No edema. Laboratory Data: Reviewed. Medications: Current antibiotic includes vancomycin and cefepime. As patient is going hospice, we will discontinue our service and follow the patient as needed. NF/MODL Voice ID: [id number] Report ID: [id number]
[2018-10-31 12:33] LABS: Hematocrit 21.3 % (39.6-49.0)
[2018-10-31] MEDS ORDERED: GLUCERNA SHAKE 237 ML CAN PO PRN (13:13)
--- NOTE | 2018-10-31 15:18 | P.PN ---
Subjective Date of Service: 10/31/18 Primary Care Provider: Dr. Luevano Chief Complaint: acute bronchitis Subjective: No new changes CKD III, lung Ca on pallitaive radiotherapy admitted for chills and fever Cr stable Plan to discharge to Hospice Physical Examination - Vital Signs Temperature: 99.7 F Blood Pressure: 175/75 Pulse: 90 Respirations: 20 Pulse Ox (%): 92 - Physical Exam General: Alert, Mild distress HEENT: Atraumatic Neck: Supple, JVD not distended, Without JVD or thyroid abnormality Respiratory: Clear to auscultation bilaterally, Normal air movement Cardiovascular: No edema, Normal pulses, Regular rate/rhythm, Normal S1 S2, No rubs, No murmurs Gastrointestinal: Normal bowel sounds, Soft and benign Integumentary: No rashes - Studies Medications List Reviewed: Yes Assessment And Plan - Current Problems (Diagnosis) (1) CKD (chronic kidney disease) Current Visit: Yes Status: Acute (2) Lung cancer Current Visit: No Status: Acute Qualifiers: Laterality: left (3) Hypertension Onset Date: 10/19/18 Current Visit: No Status: Chronic Qualifiers: Hypertension type: essential hypertension Qualified Code(s): I10 - Essential (primary) hypertension (4) Type 2 diabetes mellitus Onset Date: 10/19/18 Current Visit: No Status: Chronic Qualifiers: 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
--- NOTE | 2018-10-31 15:30 | P.DS ---
Admission Date: 10/18/18 Discharge Date: 10/31/18 Primary Care Provider: Dr. Luevano Disposition: HOSPICE-HOME Discharge Condition: GOOD Reason for Admission: acute bronchitis Consultations: Nephrology-Dr. Traylor Infectious disease-Dr. Cooper Oncology-Dr. Laws Procedures: Head CT: COMPARISON: February 2010 TECHNIQUE: Axial 5 mm thick images of the head were obtained without IV contrast. All CT scans are performed using dose optimization technique as appropriate and may include automated exposure control or mA/KV adjustment according to patient size. FINDINGS: No intracranial hemorrhage, mass, edema or shift of mid-line structures. No acute infarction changes seen. No abnormal extra-axial fluid collections. Mild to moderate atrophy and chronic ischemic changes are present. Atrophy is mildly progressive from 2009. Mastoid air cells and visualized portions of the paranasal sinuses are clear. No acute bony findings. IMPRESSION: Atrophy and chronic ischemic changes are present. No acute intracranial finding. CT: COMPARISON: No relevant prior studies available. TECHNIQUE: Axial computed tomography images of the chest, abdomen and pelvis without intravenous contrast. Sagittal and coronal reformatted images were created and reviewed. As a consequence of the lack of intravenous contrast, there is limited evaluation of the organs and soft tissues. This CT exam was performed using one or more of the following dose reduction techniques: Automated exposure control, adjustment of the mA and/or kV according to patient size, and/ or use of iterative reconstruction technique. FINDINGS: CHEST: LUNGS: There is a large medial LEFT lower lobe 5.2 x 4.1 cm solid nodular mass present. This is highly suspicious for a bronchogenic carcinoma of the lung. There are mild centrilobular emphysematous changes noted. This is particularly in the LEFT upper lobe. RIGHT lung is clear. PLEURAL SPACE: Unremarkable. No significant effusion. No pneumothorax. HEART: There are coronary artery calcifications noted. There are coronary artery calcifications noted. No significant pericardial effusion. ABDOMEN: LIVER: Unremarkable noncontrast appearance of the liver. GALLBLADDER AND BILE DUCTS: There are postsurgical changes from prior cholecystectomy in the gallbladder fossa. No ductal dilation. PANCREAS: Unremarkable. No ductal dilation. SPLEEN: Unremarkable. No splenomegaly. No splenic lesion noted. ADRENALS: There is a large RIGHT adrenal mass, low density measuring 5.6 x 3.7 cm in size. There is a LEFT adrenal mass measuring 4.3 x 3.5 cm. It is also low density. These are consistent with adrenal metastases. KIDNEYS AND URETERS: RIGHT kidney since low but is not malrotated. There is mild bilateral perinephric stranding. There is a 2.5 mm calculus in the upper pole of the LEFT kidney. Small exophytic LEFT upper pole renal cysts are noted measuring up to 1 cm. No hydronephrosis is noted. STOMACH AND BOWEL: There is a large duodenal diverticulum in the 2nd/3rd portion. There is no evidence of diverticulitis. There is no evidence of bowel obstruction. There is no oral contrast opacifying the bowel. The cecum is low lying. There are RIGHT colonic diverticula noted. PELVIS: APPENDIX: The appendix is visualized and is normal in appearance. BLADDER: Urinary bladder is unremarkable. No stones. REPRODUCTIVE: The prostate gland is enlarged. CHEST, ABDOMEN and PELVIS: INTRAPERITONEAL SPACE: Unremarkable. No significant fluid collection. No free air. BONE/JOINTS:There are degenerative changes of the spine noted. SOFT TISSUES: There is rectus diastases of the anterior abdominal wall. 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 There are atheromatous vascular calcifications of the aortoiliac system. LYMPH NODES: There are pathologically enlarged retroperitoneal para-aortic and periaortic lymph nodes, both LEFT and RIGHT, measuring up to 2.8 cm on axial image 75/136 of series 201. Small nodes in the RIGHT retrocrural region are also noted. Several enlarged lymph nodes are identified at the root of the mesentery mearuing up to 2.9 cm on image 89/136 of series 201. There is stranding at the root of the mesentery. IMPRESSION: 1. There is large medial LEFT lower lobe 5.2 x 4.1 cm solid nodular mass present. This is highly suspicious for a bronchogenic carcinoma of the lung. 2. There is a large duodenal diverticulum in thr 2nd/3rd position. 3. There is a large RIGHT adrenal mass, low density measuring 5.6 x 3.7 cm in size. There is a LEFT adrenal mass measuring 4.3 x 3.5 cm. It is also low density. These are consistent with adrenal metastases. 4. There are pathologically enlarged retroperitoneal para-aortic lymph nodes, both LEFT and RIGHT, measuring up to 2.8 cm on axial image 75/136 of series 201. Small nodes in the RIGHT retrocrural region are also noted. ECHO: EF 39% LEFT VENTRICULAR WALL MOTION: NORMAL DOPPLER/COLOR FLOW: NORMAL COMMENTS: NORMAL TWO DIMENSIONAL ECHOCARDIOGRAM WITH DOPPLER. 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 Patient was admitted for further evaluation and treatment. Hospital Course: Patient presented with cough, congestion and fever. Patient found to have sepsis secondary to obstructive left-sided pneumonia complicated with stage IV adenocarcinoma lung cancer with diffuse mets to the adrenal gland, S1 spine and mesenteric lymph nodes. Patient recently evaluated by oncology and radiation oncology. During the course of his stay patient received antibiotic treatment. His condition did not improve. Multiple blood cultures were negative. As his condition declined options of care including long-term acute care facility placement for long-term IV antibiotic therapy was considered. Oncology, infectious disease evaluated patient. Oncology felt patient's condition was getting worse. Oncology discussed the possibility of hospice to the patient. Patient understands that his condition is worsening and likely not to improve even with immunotherapy or palliation radiation. Patient decided to go home with hospice. Arrangements for hospice care was arranged. At discharge patient will continue with hospice. Patient currently with fentanyl patch at 25 mcg every 72 hr. Patient also uses lidocaine patch. Pain management will be continued by hospice. Comfort measures to be continued. This was discussed in detail with patient and family. All are in agreement. During the course of his stay patient was assess for acute on chronic renal disease, BPH, hypertension, diabetes mellitus, GERD, hyperlipidemia, iron deficiency anemia and diarrhea. Medications have been adjusted. Patient will continue with albuterol 1 unit dose 3 times a day as needed for shortness of breath, Flomax 0.4 mg daily, Proscar 5 mg daily, Starlix 120 mg 1 pill twice daily, Zocor 40 mg daily, aspirin 81 mg daily, metoprolol 25 mg 1 pill twice daily, Protonix 40 mg daily. Amlodipine and metoprolol XL have been discontinued. Patient will continue with multi vitamins and medication for constipation. Patient may continue with oxygen to maintain sats above 90%. Further adjustment in medication can be done by hospice. Patient to continue with comfort measures. Vital Signs/Physical Exam: Temp Pulse Resp BP Pulse Ox 99.7 F 90 20 175/75 H 92 10/31/18 15:18 10/31/18 15:18 10/31/18 15:18 10/31/18 15:18 10/31/18 15:18 General: Alert, In no apparent distress, Oriented x3, Cooperative HEENT: Atraumatic Neck: Supple Respiratory: Crackles/rales (To the bases bilateral) Cardiovascular: Normal pulses, Regular rate/rhythm Gastrointestinal: Normal bowel sounds, Soft and benign, Non-distended, No tenderness, No masses, No rebound, No guarding Musculoskeletal: No tenderness, No warmth Integumentary: No warmth, No cyanosis Neurological: Normal speech, Normal strength at 5/5 x4 extr, Normal tone, Normal affect Laboratory Data at Discharge: WBC 5.3 K/uL (4.3-10.9) 10/31/18 05:24 Hgb 7.3 g/dL (13.6-17.9) L* 10/31/18 12:02 Hct 21.3 % (39.6-49.0) L 10/31/18 12:02 Plt Count 432 K/uL (152-406) H 10/31/18 05:24 PT 13.1 SECONDS (9.5-12.5) H 10/18/18 03:10 INR 1.11 10/18/18 03:10 Sodium 136 mmol/L (136-145) 10/31/18 05:24 Potassium 3.8 mmol/L (3.5-5.1) 10/31/18 05:24 BUN 12 mg/dL (7-18) 10/31/18 05:24 Creatinine 1.59 mg/dL (0.55-1.3) H 10/31/18 05:24 Glucose 89 mg/dL (74-106) 10/31/18 05:24 Phosphorus 3.5 mg/dL (2.5-4.9) 10/21/18 16:16 Magnesium 1.9 mg/dL (1.8-2.4) 10/31/18 05:24 Total Bilirubin 0.3 mg/dL (0.2-1.0) 10/28/18 18:14 AST 15 U/L (15-37) 10/28/18 18:14 ALT 12 U/L (12-78) 10/28/18 18:14 Alkaline Phosphatase 77 U/L (45-117) 10/28/18 18:14 Lipase 233 U/L (73-393) 10/18/18 03:10 Home Medications: Ascorbic Acid [Vitamin C] 500 mg PO DAILY 09/17/18 Aspirin [Aspirin EC 81 MG] 81 mg PO DAILY 09/17/18 Cholecalciferol (Vitamin D3) [D3-50] 10,000 unit PO ONCE 09/17/18 Ezetimibe [Zetia*] 10 mg PO DAILY 09/17/18 Finasteride [Proscar*] 5 mg PO DAILY 09/17/18 Krill/Om-3/Dha/Epa/Phospho/Ast [Krill Oil 500 mg Softgel] 500 mg PO DAILY Montelukast [Singulair*] 10 mg PO DAILY 09/17/18 Multivit-Min/FA/Lycopen/Lutein [Centrum Silver Tablet] 1 tab PO DAILY 09/17/18 Nateglinide [Starlix] 120 mg PO BID 09/17/18 Simvastatin [Zocor] 40 mg PO BEDTIME 09/17/18 Tamsulosin [Flomax*] 0.4 mg PO BEDTIME 09/17/18 Lidocaine 5% Patch [Lidoderm 5% Patch*] 1 patch TOP BID 10/18/18 Pantoprazole [Protonix Tab*] 1 tab PO DAILY 10/18/18 Polyethyl Gly 3350 [Glycolax*] 17 gm PO BID PRN 10/18/18 Senosides [Senokot*] 8.6 mg PO DAILY 10/18/18 Albuterol Neb [Proventil 0.083% Neb Soln] 2.5 mg NEB TID PRN #90 amp 10/31/18 Insulin Glargine,Hum.rec.anlog [Lantus Solostar] 10 units SQ DAILY #1 insuln.pen 10/31/18 Metoprolol Tartrate [Lopressor*] 25 mg PO BID 6AM 6PM #60 tab 10/31/18 New Medications: Albuterol Neb [Proventil 0.083% Neb Soln] 2.5 mg NEB TID PRN #90 amp PRN Reason: Shortness Of Breath Insulin Glargine,Hum.rec.anlog [Lantus Solostar] 10 units SQ DAILY #1 insuln.pen Metoprolol Tartrate [Lopressor*] 25 mg PO BID 6AM 6PM #60 tab Patient Discharge Instructions: 1. Patient will be discharged to hospice at home. 2. Adjustment in medication can be done by hospice. Pain medication to be continued by hospice. Diet: ADA Activity: Fall precautions Time spent managing pt's care (in minutes): 55
--- NOTE | 2018-10-31 17:01 | P.PN ---
Date of Service: 10/31/18 (Oncology) Patient seen and examined at 8.30 am this morning. Daughter Monica at bedside. Pt was seen by me on 10/09/18 when he was diagnosed with metastatic NSCLC. Unfortunately patient had an eventful post hospital course leading to hospitalizations secondary to uncontrollable pain due to bone mets. He was noted to have a sacral lesion recently when he was transferred to [facility]. He then received palliative radiation here by Dr Hernandez. Pt has NSCLC Adenocarcinoma with PDL1 100% positive, I had previously discussed with his daughter over phone about options using immunotherapy with keytruda as an attempt to prolong survival and control disease progression. Discussed the same with patient and daughter Monica today. We had a comprehensive discussion of possible options with immunotherapy vs chemotherapy and best supportive care , expected immune mediated side effects and data showing improvement in OS and PFS when compared to chemotherapy. Patient performance status has been declining and he appears to be in a lot of pain. I do not think he will be able to tolerate treatment given his declining performance status and his repeated hospitalizations. He also seems to have a made a decision that he does not wish to pursue any treatment at this time and wishes to be comfortable. He asked questions about hospice care and clarified his doubts and also about pain management. He understands that no oncology related care is possible while on hospice. Currently on HCAP which did not seem to adequately control his pain. Recommend change to Fentanyl 50mcg transdermal q 72H. Morphine 10mg PO q 4 H prn pain if HCAP not adequate. Parenteral PRN morphine can be used as well better pain control. On iron supplementation for anemia. D/w Dr Westbrook. 5pm: Hospice has already been consulted and taken over at this time. Ideally his pain will be addressed and managed by Hospice from here onwards.
[2018-10-31] MEDS: IPRATROPIUM BROM 0.5MG/2.5ML NEB PRN (19:59)
[2018-10-31] MEDS: ATORVASTATIN 20 MG TAB PO SCH (20:14)
[2018-10-31] MEDS: TAMSULOSIN 0.4 MG SR CAP PO SCH (20:15)
[2018-10-31] MEDS: HYDROCODONE/APAP 5/325 MG TAB PO PRN (20:16)
== END 2018-10-31 20:45 | disposition hospice, home (50) | DRG 871 ==
LOC: ER 02:58 → ERHOLD 05:20 → 2ND 06:07
PROVIDERS: ADMIT Internal Medicine; ATTEND Family Medicine
DX: A41.9 Sepsis, unspecified organism (principal); J18.9 Pneumonia, unspecified organism; N17.9 Acute kidney failure, unspecified; C34.92 Malignant neoplasm of unspecified part of left bronchus or lung; C77.2 Secondary and unspecified malignant neoplasm of intra-abdominal lymph nodes; C79.51 Secondary malignant neoplasm of bone; C79.72 Secondary malignant neoplasm of left adrenal gland; C79.71 Secondary malignant neoplasm of right adrenal gland; I13.0 Hypertensive heart and chronic kidney disease with heart failure and stage 1 through stage 4 chronic kidney disease, or unspecified chronic kidney disease; I50.22 Chronic systolic (congestive) heart failure; K52.0 Gastroenteritis and colitis due to radiation; R78.81 Bacteremia; Z51.5 Encounter for palliative care; R65.20 Severe sepsis without septic shock; Z66 Do not resuscitate; E11.22 Type 2 diabetes mellitus with diabetic chronic kidney disease; N18.3 Chronic kidney disease, stage 3 (moderate); Y84.2 Radiological procedure and radiotherapy as the cause of abnormal reaction of the patient, or of later complication, without mention of misadventure at the time of the procedure; Y78.1 Therapeutic (nonsurgical) and rehabilitative radiological devices associated with adverse incidents; Y92.230 Patient room in hospital as the place of occurrence of the external cause; K21.9 Gastro-esophageal reflux disease without esophagitis; E78.5 Hyperlipidemia, unspecified; D50.9 Iron deficiency anemia, unspecified; Z88.7 Allergy status to serum and vaccine; I25.2 Old myocardial infarction; J20.9 Acute bronchitis, unspecified; I95.9 Hypotension, unspecified; E11.65 Type 2 diabetes mellitus with hyperglycemia; Z79.84 Long term (current) use of oral hypoglycemic drugs; F17.210 Nicotine dependence, cigarettes, uncomplicated; B95.3 Streptococcus pneumoniae as the cause of diseases classified elsewhere
CPT/HCPCS: 36415; 70450; 71045; 71250; 74176; 76881; 77336; 80048; 80053; 80076; 80202; 81003; 81015; 82274; 82533; 82565; 82607; 82728; 82746; 82947; 82962; 83540; 83605; 83690; 83735; 83880; 84100; 84145; 84466; 84484; 85014; 85018; 85025; 85610; 86850; 86900; 86901; 87040; 87086; 87088; 87205; 87493; 87804; 89055; 90670; 93005; 93306; 94640; 94760; 96365; 96366; 96367; 96368; 96375; 97116; 97163; 97165; 97530; 99285; G0009; J0456; J0692; J1650; J1940; J2405; J2543; J2916; J2930; J3370; J3475; J7030; J7605